=== PATIENT | male | born 1965 | race Two or more races ===

== ENCOUNTER 2019-12-25 07:21 | Outpatient (REF) | payer OTHER, SELFPAY ==
[2019-12-25 08:33] LABS: Alanine Aminotransferase 91 U/L (0-40); Albumin Level 3.9 g/dL (3.5-5.0); Alkaline Phosphatase 82 U/L (39-117); Anion Gap 10 (12-20); Aspartate Amino Transferase 39 U/L (5-37); Bilirubin Total 1.1 mg/dL (0.0-1.0); Blood Urea Nitrogen 10 mg/dL (9-16); Calcium 8.6 mg/dL (8.4-10.2); Carbon Dioxide 27 mmol/L (22-29); Chloride 108 mmol/L (96-108); Cholesterol 200 mg/dL; Estimated Glomerular Filt Rate > 60; Glucose Fasting 116 mg/dL (60-99); HDL Cholesterol 45 mg/dL; LDL Cholesterol Calculated 127 mg/dl; Potassium 4.7 mmol/l (3.3-5.1); Sodium 140 mmol/L (135-145); Total Protein 6.5 g/dL (6.5-8.0); Triglycerides 143 mg/dL
== END 2019-12-25 07:22 | disposition home or self-care (01) ==
LOC: HO.LAB 07:21
PROVIDERS: PCP Internal Medicine; Visit Provider Internal Medicine
DX: E66.9 Obesity, unspecified (principal)
CPT/HCPCS: 80053; 80061

== ENCOUNTER 2020-04-21 15:46 | Outpatient (REF) | payer OTHER, SELFPAY ==
--- NOTE | ~2020-04-21 | XR_ITS ---
EXAMINATION: XR KNEE, RIGHT CLINICAL INFORMATION: Pain COMPARISON: None TECHNIQUE: Four views of the right knee. FINDINGS: Bone alignment is normal. No fracture or dislocation is seen. There is mild medial femoral tibial joint space narrowing. There are small osteophytes at the patellofemoral joint. There is no joint effusion. XR/XR knee RT 4V IMPRESSION: Mild degenerative changes.
== END 2020-04-21 15:47 | disposition home or self-care (01) ==
LOC: HO.XRAY 15:46
PROVIDERS: PCP Internal Medicine; Visit Provider Internal Medicine
DX: M25.561 Pain in right knee (principal)
CPT/HCPCS: 73564

== ENCOUNTER 2020-05-16 11:00 | Outpatient (RCR) | payer OTHER, SELFPAY | END 2020-05-16 12:27 | disposition other institution (70) | LOC: HO.PTCHIC 11:00 | PROVIDERS: PCP Internal Medicine; Visit Provider Neurological Surgery | DX: Z98.1 Arthrodesis status (principal); R53.1 Weakness; R20.0 Anesthesia of skin | CPT/HCPCS: 97014; 97110; 97112; 97140; 97162 ==

== ENCOUNTER 2020-08-08 08:37 | Outpatient (REF) | payer OTHER, SELFPAY ==
--- NOTE | ~2020-08-08 | US_ITS ---
EXAMINATION: US COMPLETE ABDOMEN WITH LIVER ELASTOGRAPHY CLINICAL INFORMATION: Elevation of liver transaminase levels. COMPARISON: None TECHNIQUE: Real-time imaging of the abdominal viscera. Noninvasive ultrasound liver fibrosis assessment is performed using [place]eno ElastPQ point quantification shear wave elastography (pSWE) with a C5-2 MHz transducer. Multiple elastography samples are obtained. FINDINGS: PANCREAS: Most of the pancreas is obscured by overlying gas. The visualized head and proximal body of the pancreas are homogeneous in echotexture. ABDOMINAL AORTA: The proximal, middle, and distal aortic segments are normal in caliber. INFERIOR VENA CAVA: Visualized portions are normal. LIVER: The liver demonstrates normal size, contour and slight increased echogenicity. There is mild focal fatty sparing. There is a prominent left portal vein with slightly abnormal flow. The right lobe measures 13.5 cm in length. The left lobe measures 11.7 cm in length. Portal flow is hepatopedal. Shear wave liver elastography median stiffness is 2.0 m/s (reference: normal median stiffness is 1.3 m/s or less). IQR/median stiffness to assess sampling precision is 0.25 (reference: good quality data set is IQR/median stiffness of 0.15 or less). GALLBLADDER: Normal. The gallbladder is physiologically distended without evidence of stones, sludge, polyps, wall thickening, or pericholecystic fluid. COMMON BILE DUCT: Normal in caliber measuring 0.3 cm in diameter. RIGHT KIDNEY: Normal. No hydronephrosis. No renal calculi or focal parenchymal lesions. The kidney measures 10.6 cm in maximum dimension. LEFT KIDNEY: Normal. No hydronephrosis. No renal calculi or focal parenchymal lesions. The kidney measures 13.0 cm in maximum dimension. SPLEEN: Normal. The spleen measures 11.9 cm in maximum dimension. FREE FLUID: None. US/US abdomen comp w elastography IMPRESSION: 1. Mildly echogenic liver with likely hepatic steatosis. Focal dilated portal vein and left hepatic lobe with slightly irregular flow. 2. Liver elastography: 2.0 cACLD suggestive. REFERENCE: Society of Radiologists in Ultrasound Liver Stiffness Thresholds (2019): LIVER STIFFNESS THRESHOLDS: *Liver Stiffness equal or less than 1.3 m/s: High probability of being normal. *Liver Stiffness less than 1.7 m/s: In the absence of other known clinical signs, rules out compensated advanced chronic liver disease. *Liver Stiffness 1.7-2.1 m/s: Suggestive of compensated advanced chronic liver disease but need further test for confirmation. *Liver Stiffness over 2.1 m/s: Rules in compensated advanced chronic liver disease. *Liver Stiffness over 2.4 m/s: Suggestive of clinically significant portal hypertension. QUALITY OF DATA SET: *IQR/Median value equal or less than 0.15 implies a quality data set. *IQR/Median value over 0.15 implies a poor quality data set. SIGNIFICANT CHANGE FROM PRIOR EXAM: Significant change if liver stiffness measurement is 10% or greater from prior exam. OTHER CONSIDERATIONS: The stage of liver fibrosis may be overestimated in the setting of acute hepatitis, liver inflammation, elevated liver function tests, hepatic vascular congestion, obstructive cholestasis, non-fasting state, and infiltrative diseases such as amyloidosis and lymphoma. In some patients with NAFLD, the liver stiffness thresholds for compensated advanced chronic liver disease may be lower. In causes other than viral hepatitis and NAFLD, liver stiffness thresholds are not well established.
== END 2020-08-08 08:38 | disposition home or self-care (01) ==
LOC: HO.US 08:37
PROVIDERS: Visit Provider Internal Medicine
DX: R74.01 Elevation of levels of liver transaminase levels (principal)
CPT/HCPCS: 76705; 76981

== ENCOUNTER 2020-11-06 14:31 | Outpatient (REF) | payer OTHER, SELFPAY ==
--- NOTE | ~2020-11-06 | FL_ITS ---
EXAMINATION: XR BARIUM SWALLOW CLINICAL INFORMATION: Cough COMPARISON: None TECHNIQUE: Fluoroscopic guidance was provided for modified barium swallow by the speech and hearing department. FINDINGS: No aspiration or penetration is seen. There is retention of solid food mixed with barium in the vallecula. FLUOROSCOPY TIME: 0.9 minutes DOSE AREA PRODUCT: 1.4 more per centimeter squared. FL/FL barium swallow modified IMPRESSION: Retention of solid food mixed with barium in the vallecula. The speech and hearing report for detailed findings.
--- NOTE | 2020-11-06 16:17 | MHC.SL.IMP ---
Date of Plan of Treatment: 11/06/20 Onset of Symptoms/Illness: 10/06/20 Date Treatment Started: 11/06/20 Admitting Diagnosis: Dyslipidemia Impaired glucose tolerance Lumbar degenerative disc disease Right knee pain Transaminitis Primary Speech & Language Diagnosis: R13.12 Oropharyngeal Phase Dysphagia Reason for Today's Visit: 90325 Modified Barium Swallow Study Pre-evaluation Dietary Consistencies: Regular Pre-evaluation Liquid Consistency: Thin Pre-evaluation Medication Administration: Whole with Liquid Medical History: Comments: Modified Barium Swallow Study Fluoroscopic Evaluation of Swallowing Function CPT Code 60301 Evaluation Year: 2020 Reason for Study: Patient reports coughing on liquids. Referring Physician: Joshua Foote DO Evaluating Clinician: Bceky Correa M.A., CCC-MANAGER FINANCIAL PLANNING Study Number: 1 Patient Name: Tom Taylor Status: Outpatient, Ambulatory Age: 54 Gender: Male MEDICAL HISTORY: Year of Onset or Diagnosis: 2020 Comorbidities: Dyslipidemia Impaired glucose tolerance Lumbar degenerative disc disease Right knee pain Transaminitis Current (pre-evaluation) Intake/Diet: Route: PO Diet Grade: Regular Liquid Consistencies: Thin Pre-Study Functional Oral Intake Scale (FOIS): 7- Total oral intake with no restrictions Pain: None reported at time of study Oral Motor Exam Facial Symmetry: Symmetrical Mouth Occlusion: Normal Oral-Facial Teeth Characteristics: Intact/Normal Oral-Facial Teeth Miscellaneous Observation: Oral-Facial Lip Pucker Description: Normal Oral-Facial Smile (Lips) Description: Normal Oral-Facial Puff Cheeks Description: Normal Tongue Size: Normal Tongue Frenum Length: Normal Tongue Excursion Description: Normal Tongue Range of Movement Description: Normal Tongue Speed of Movement Description: Normal Tongue Strength of Movement (against opposing pressure): Normal Tongue Movement Characteristics: Normal/Absent Is patient able to manage secretions?: Yes I Food and Liquid Trials: Oral Impairment: Lip Closure: 0=No labial escape Oral Impairment: Tongue Control During Bolus Hold: 0=Cohesive bolus between tongue to palatal seal Oral Impairment: Bolus Preparation/Mastication: 0=Timely and efficient chewing and mashing Oral Impairment: Bolus Transport/Lingual Motion: 0=Brisk tongue motion Oral Impairment: Oral Residue: 1=Trace residue lining oral structures Oral Impairment:Initiation of Pharyngeal Swallow: 1=Bolus head in valleculae Pharyngeal Impairment: Soft Palate Elevation: 0=No bolus between soft palate (SP)/pharyngeal wall (PW) Pharyngeal Impairment: Laryngeal Elevation: 0=Complete superior movement of thyroid cartilage (see description) Pharyngeal Impairment: Anterior Hyoid Excursion: 0=Complete anterior movement Pharyngeal Impairment: Epiglottic Movement: 0=Complete inversion Pharyngeal Impairment: Laryngeal Vestibular Closure:: 0=Complete: no air/contrast in laryngeal vestibule Pharyngeal Impairment: Pharyngeal Stripping Wave: 0=Present: complete Pharyngeal Impairment: Pharyngeal Contraction: Did not test Pharyngeal Impairment: Pharyngoesophageal Segment Openin=Complete distension and complete duration: no obstruction of flow Pharyngeal Impairment: Tongue Base (TB) Retraction: 2=Narrow column of contrast/air between TB and posterior PW Pharyngeal Impairment: Pharyngeal Residue: 2=Collection of residue within or on pharyngeal structures Pharyngeal Impairment: Esophageal Clearance Upright Position: Did not test Impressions and Recommendations Clinical Observations: OBJECTIVE: Time-out: performed at 02:45 Evaluation Start: 02:30; Stop: 02:40 Patient Positioning: Standing Viewing Planes: LATERAL ONLY Contrast: MBSImP? Standardized Protocol using commercially prepared, standardized Barium viscosities, including: Varibar? THIN LIQUID (40% w/v, <15 cps) , 1/2 Shortbread Cookie (1 x1 x.25 ) MBSImP ID: [id number] MBSImP Results: Lip closure for intraoral bolus containment resulted in no labial escape. Tongue control during bolus hold maintained a cohesive bolus held between tongue to palate seal. Bolus preparation and mastication resulted in timely and efficient chewing and mashing. Bolus transport/lingual motion was with brisk tongue motion. Oral residue was a trace, lining oral structures. Initiation of the pharyngeal swallow occurred when the bolus head was in the valleculae. Soft palate elevation resulted in no bolus between the soft palate and the pharyngeal wall. Laryngeal elevation demonstrated complete superior movement of the thyroid cartilage with complete approximation of the arytenoids to the epiglottic petiole. Anterior hyoid excursion demonstrated complete anterior movement. Epiglottic movement resulted in complete inversion. Laryngeal vestibular closure was complete, as indicated by no air or contrast within the laryngeal vestibule at the height of the swallow. Pharyngeal stripping wave was present and complete. Pharyngeal contraction could not be determined due to logistical reasons not related to physiologic impairment. Pharyngoesophageal segment opening was completely distended for complete duration with no obstruction of bolus flow. Tongue base retraction allowed a narrow column of contrast or air between the retracted tongue base and the posterior pharyngeal wall. Pharyngeal residue was a collection of residue within or on pharyngeal structures. Esophageal clearance in the upright position could not be assessed due to logistical reasons not related to physiologic impairment. Oral Impairment Score: 1 Pharyngeal Impairment Score: 4 (absence of score, component 13) Esophageal Impairment Score: --- (absence of score, component 17) Laryngeal Penetration and Aspiration: Neither penetration nor aspiration was observed in today's study with Cookie, Thin. ASSESSMENT: Clinician Assessment: This exam was conducted by a radiologist and speech language pathologist. Patient was standing for lateral view only. Patient trialed the following liquid and solid consistencies: -5 mL thin liquid barium -cup sip with bolus hold thin liquid barium -consecutive cup sip thin liquid barium -pureed solid (applesauce mixed with barium paste) -ground solid (chicken salad mixed with barium paste) -regular solid (Steffany Doone cookie coated in barium paste) No evidence of penetration or aspiration during this exam when patient trialed solids and liquids. Trace lingual residue and mild retention in vallecular space and pyriforms with solids. Reduced residue with sip of liquid or subsequent dry swallow. Otherwise unremarkable exam. Liquid Intake Recommendation: Thin Liquid Intake Strategies: Unrestricted Dietary Recommendations: Regular Medication Administration: Whole with Liquid Compensatory Strategies Recommended: Sitting Upright (90 deg) Double Swallow Small Bites and Sips Alternate Liquids/Solids Rate of Ingestion Change Supervision during eating and or drinking: None Needed Recommended Treatments: Recommendation for Speech Therapy: NA:Typical Evaluation Text Comment: Intake Recommendations: Route: PO Diet Grade: Regular Liquid Consistencies: Thin Post-Study Functional Oral Intake Scale (FOIS): 7- Total oral intake with no restrictions Recommend resume unmodified diet REGULAR solids and THIN liquids with pills WHOLE in LIQUID. Patient is recommended consult with ENT doctor due to reports of chronic cough. Suggested Referrals: The patient might benefit from a referral to: Otolaryngology Indication for Referral: coughing Therapy Recommendations: Therapy will be discontinued Prognosis for Improvement: The prognosis for the patient to meet nutritional needs by mouth is good based on . Clinician - Supplemental, Miscellaneous Communication: It is important to note MBSS objective studies are snapshots in time and Patient function might vary with factors such as time of day or concomitant medical conditions. For this reason, the final treatment plan for this patient should rest with their medical care team. Additional recommendations should be considered with the totality of the Patient in mind. ? Thank for the opportunity to participate in the care of this patient. If you have any questions about the content of this report, please contact the [facility] at [facility]. ? Education: Education regarding findings from today's study and plans for therapy were provided to Patient only through Verbal Instruction. Understanding was expressed by the Patient only. Frequency/Duration: NA Date Range for Service Requested: Timeline to reassess: [employer] Plant Operations Engineer Clinician/Clinical Fellow: No Supervisory Statement: N/A Speech Language Pathologist: Becky Correa M.A., CCC-MANAGER FINANCIAL PLANNING
== END 2020-11-06 14:32 | disposition home or self-care (01) ==
LOC: HO.XRAY 14:31
PROVIDERS: Visit Provider Hospitalist
DX: R05 Cough (principal)
CPT/HCPCS: 74230; 92611

== ENCOUNTER → 2020-11-27 10:54 | Outpatient (BNVA) | payer OTHER, SELFPAY | PROVIDERS: PCP Internal Medicine; Visit Provider Anesthesiology | DX: M96.1 Postlaminectomy syndrome, not elsewhere classified (principal); G89.4 Chronic pain syndrome | CPT/HCPCS: 99212 ==

== ENCOUNTER 2020-12-11 06:38 | Outpatient (REF) | payer OTHER, SELFPAY ==
[2020-12-11 07:24] LABS: Alanine Aminotransferase 52 U/L (0-40); Alkaline Phosphatase 103 U/L (39-117); Anion Gap 10 (12-20); Aspartate Amino Transferase 34 U/L (5-37); Bilirubin Total 1.1 mg/dL (0.0-1.0); Blood Urea Nitrogen 9 mg/dL (9-16); Calcium 9.4 mg/dL (8.4-10.2); Carbon Dioxide 29 mmol/L (22-29); Chloride 107 mmol/L (96-108); Cholesterol 222 mg/dL; Estimated Glomerular Filt Rate > 60; Glucose Fasting 118 mg/dL (60-99); HDL Cholesterol 38 mg/dL; LDL Cholesterol Calculated 157 mg/dl; Potassium 4.3 mmol/L (3.3-5.1); Sodium 142 mmol/L (135-145); Total Protein 6.7 g/dL (6.5-8.0); Triglycerides 135 mg/dL
[2020-12-11 07:39] LABS: HBS Num1 0.78 mIU/mL (0-7.99); HBc Num1 0.07 S/CO (0.00-0.79); Hepatitis B Core Antibody Nonreactive (Nonreactive); ~Hepatitis B Surface Antibody NONREACTIVE (Nonreactive)
[2020-12-11 07:44] LABS: Hepatitis B Surface Antigen Negative (Negative); ~Hepatitis C Antibody Nonreactive (Nonreactive)
[2020-12-12 12:21] LABS: Alpha Fetoprotein 4.4 ng/mL (<6.1)
[2020-12-13 07:50] LABS: HBsAGNum1 0.15 S/CO (0.00-0.99); ~HepC Num1 0.09 S/CO (0.00-0.79)
[2020-12-13 09:20] LABS: Hepatitis A Antibody IgM 0.12 Index (0-0.79); ~Hepatitis A Antibody IgM Nonreactive (Nonreactive)
[2020-12-15 14:25] LABS: Vitamin D 25-OH, D2 <4 ng/mL; Vitamin D 25-OH, D3 26 ng/mL; Vitamin D 25-OH, Total 26 ng/mL (30-100)
[2020-12-18 08:27] LABS: Mitochondrial Antibodies NEGATIVE (NEGATIVE)
== END 2020-12-11 06:39 | disposition home or self-care (01) ==
LOC: HO.LAB 06:38
PROVIDERS: PCP Internal Medicine; Visit Provider Internal Medicine
DX: R74.01 Elevation of levels of liver transaminase levels (principal); E55.9 Vitamin D deficiency, unspecified; E78.5 Hyperlipidemia, unspecified; R73.02 Impaired glucose tolerance (oral)
CPT/HCPCS: 36415; 80053; 80061; 82105; 82306; 86255; 86256; 86704; 86706; 86709; 86803; 87340

== ENCOUNTER → 2020-12-27 15:51 | Outpatient (BNVA) | payer OTHER, SELFPAY | PROVIDERS: PCP Internal Medicine; Visit Provider Anesthesiology | DX: M96.1 Postlaminectomy syndrome, not elsewhere classified (principal); G89.4 Chronic pain syndrome | CPT/HCPCS: 99212 ==

== ENCOUNTER 2021-01-16 06:13 | Outpatient (REF) | payer OTHER, SELFPAY ==
--- NOTE | ~2021-01-16 | FL_ITS ---
EXAMINATION: XR FLUOROSCOPY WITH IMAGES CLINICAL INFORMATION: M96.1 - Postlaminectomy syndrome, not elsewhere classified COMPARISON: None. TECHNIQUE: Fluoroscopy performed by Dr. Bryant Amezquita. Fluoroscopy time: 1.0 minutes DAP: 14.9 Gycm2 Images: 3 FINDINGS: There is a spinal needle overlying the outer right L5 neural foramen. There is contrast seen in the respective nerve sheath along with transforaminal epidural extension. No visible vascular communication. There are postsurgical changes with pedicle screws and rodding L4-L5. There are disc spaces L4-L5 and L5-S1 and surgical clips overlying the sacrum. FL/FL guidance in treatment room IMPRESSION: Fluoroscopy for pain management procedures.
== END 2021-01-16 06:14 | disposition home or self-care (01) ==
LOC: HO.RADIR 06:13
PROVIDERS: Visit Provider Anesthesiology
DX: M96.1 Postlaminectomy syndrome, not elsewhere classified (principal)
CPT/HCPCS: J3300; Q9967

== ENCOUNTER → 2021-02-19 10:14 | Outpatient (BNVA) | payer OTHER, SELFPAY | PROVIDERS: PCP Internal Medicine; Visit Provider Anesthesiology | DX: M96.1 Postlaminectomy syndrome, not elsewhere classified (principal); G89.4 Chronic pain syndrome | CPT/HCPCS: Q3014 ==

== ENCOUNTER → 2021-04-04 09:54 | Outpatient (BNVA) | payer OTHER, SELFPAY | PROVIDERS: PCP Internal Medicine; Visit Provider Anesthesiology | DX: M96.1 Postlaminectomy syndrome, not elsewhere classified (principal); G89.4 Chronic pain syndrome | CPT/HCPCS: 99212 ==

== ENCOUNTER 2021-08-07 13:58 | Outpatient (REF) | payer OTHER, SELFPAY ==
[2021-08-08 12:09] LABS: Influenza A PCR NEGATIVE (Negative); Influenza B PCR NEGATIVE (Negative); Resp Syncy Virus RNA Qual PCR NEGATIVE (Negative); SARS COV2 PCR INHOUSE POSITIVE (Negative)
== END 2021-08-07 13:59 | disposition home or self-care (01) ==
LOC: HO.LAB 13:58
PROVIDERS: Visit Provider Hospitalist
DX: Z20.822 Contact with and (suspected) exposure to COVID-19 (principal); B34.9 Viral infection, unspecified
CPT/HCPCS: 0241U

== ENCOUNTER 2021-10-13 07:24 | Outpatient (REF) | payer OTHER, SELFPAY ==
[2021-10-13 08:25] LABS: Alanine Aminotransferase 65 U/L (0-40); Albumin Level 3.9 g/dL (3.5-5.0); Alkaline Phosphatase 79 U/L (39-117); Anion Gap 12 (12-20); Aspartate Amino Transferase 55 U/L (5-37); Bilirubin Total 0.9 mg/dL (0.0-1.0); Blood Urea Nitrogen 10 mg/dL (9-16); Calcium 8.7 mg/dL (8.4-10.2); Carbon Dioxide 28 mmol/L (22-29); Chloride 108 mmol/L (96-108); Cholesterol 159 mg/dL; Estimated Glomerular Filt Rate > 60; Glucose Fasting 123 mg/dL (60-99); HDL Cholesterol 45 mg/dL; LDL Cholesterol Calculated 85 mg/dl; Potassium 4.3 mmol/L (3.3-5.1); Sodium 144 mmol/L (135-145); Total Protein 6.6 g/dL (6.5-8.0); Triglycerides 148 mg/dL
[2021-10-13 08:52] LABS: PSA,Total (Free>4and<10) 0.13 ng/mL (0.00-4.00)
[2021-10-17 15:02] LABS: Vitamin D 25-OH, D2 <4 ng/mL; Vitamin D 25-OH, D3 26 ng/mL; Vitamin D 25-OH, Total 26 ng/mL (30-100)
== END 2021-10-13 07:25 | disposition home or self-care (01) ==
LOC: HO.LAB 07:24
PROVIDERS: PCP Internal Medicine; Visit Provider Internal Medicine
DX: Z12.5 Encounter for screening for malignant neoplasm of prostate (principal); I10 Essential (primary) hypertension; E55.9 Vitamin D deficiency, unspecified; E78.5 Hyperlipidemia, unspecified
CPT/HCPCS: 36415; 80053; 80061; 82306; 84153

== ENCOUNTER 2022-04-04 09:09 | Outpatient (REF) | payer OTHER, SELFPAY ==
[2022-04-04 09:18] LABS: MANUAL DIFF FLAG NO
[2022-04-04 09:29] LABS: Basophils Absolute Auto 0.1 X10*3/uL (0.0-0.2); Basophils Percent Auto 0.6 % (0-2); Eosinophils Absolute Auto 0.1 X10*3/uL (0.0-0.4); Eosinophils Percent Auto 1.4 % (0-4); Hematocrit 47.7 % (42.0-52.0); Hemoglobin 16.4 g/dl (14.0-18.0); Imm Gran Abs Auto 0.04 X10*3/uL (0.00-0.03); Imm Gran Pct Auto 0.5 % (0.0-0.4); Lymphocytes Absolute Auto 3.6 X10*3/uL (1.2-4.9); Lymphocytes Percent Auto 40.6 % (20-40); Mean Corpuscular HGB Conc 34.4 g/dl (31.0-36.0); Mean Corpuscular Hemoglobin 29.9 pg (27.0-33.0); Mean Platelet Volume 11.9 fL (9.4-12.4); Monocytes Absolute Auto 0.7 X10*3/uL (0.1-1.2); Monocytes Percent Auto 8.1 % (2-11); Neutrophils Absolute Auto 4.3 x10*3/uL (2.0-8.3); Neutrophils Percent Auto 48.8 % (45-73); Platelet Count 172 X10*3/uL (160-400); Red Blood Count 5.48 X10*6/uL (4.60-5.80); White Blood Count 8.8 X10*3/uL (4.8-10.8)
[2022-04-04 09:42] LABS: Estimated Average Glucose 154 mg/dL
[2022-04-04 10:23] LABS: Alanine Aminotransferase 95 U/L (0-40); Albumin Level 3.9 g/dL (3.5-5.0); Alkaline Phosphatase 83 U/L (39-117); Anion Gap 10 (12-20); Aspartate Amino Transferase 61 U/L (5-37); Bilirubin Total 1.2 mg/dL (0.0-1.0); Blood Urea Nitrogen 10 mg/dL (9-16); Carbon Dioxide 29 mmol/L (22-29); Chloride 107 mmol/L (96-108); Cholesterol 166 mg/dL; Estimated Glomerular Filt Rate > 60; Glucose Fasting 138 mg/dL (60-99); HDL Cholesterol 38 mg/dL; LDL Cholesterol Calculated 103 mg/dl; Potassium 4.2 mmol/L (3.3-5.1); Sodium 142 mmol/L (135-145); Total Protein 6.5 g/dL (6.5-8.0); Triglycerides 125 mg/dL
[2022-04-04 10:25] LABS: TSH reflex Free T4 3.28 uIU/mL (0.32-4.0); Vitamin D 25-OH Total 29.3 ng/mL (>30)
== END 2022-04-04 09:10 | disposition home or self-care (01) ==
LOC: HO.LAB 09:09
PROVIDERS: PCP Internal Medicine; Visit Provider Nurse Practitioner Family
DX: I10 Essential (primary) hypertension (principal); R73.02 Impaired glucose tolerance (oral)
CPT/HCPCS: 36415; 80053; 80061; 82306; 83036; 84443; 85025

== ENCOUNTER 2022-04-12 13:55 | Outpatient (REF) | payer OTHER, SELFPAY ==
[2022-04-12 14:53] LABS: Influenza A PCR NEGATIVE (Negative); Influenza B PCR NEGATIVE (Negative); Resp Syncy Virus RNA Qual PCR NEGATIVE (Negative); SARS COV2 PCR INHOUSE POSITIVE (Negative)
== END 2022-04-12 13:56 | disposition home or self-care (01) ==
LOC: HO.LNP 13:55
PROVIDERS: Visit Provider Internal Medicine
DX: Z20.822 Contact with and (suspected) exposure to COVID-19 (principal); R09.89 Other specified symptoms and signs involving the circulatory and respiratory systems
CPT/HCPCS: 0241U

== ENCOUNTER 2022-05-18 08:40 | Outpatient (REF) | payer OTHER, SELFPAY ==
[2022-05-18 11:09] LABS: Folate 12.8 ng/mL (> or = 4.0); Thyroid Stimulating Hormone 3.91 uIU/mL (0.32-4.0); Vitamin B12 438 pg/mL (200-900)
== END 2022-05-18 08:41 | disposition home or self-care (01) ==
LOC: HO.LAB 08:40
PROVIDERS: PCP Internal Medicine; Visit Provider Internal Medicine
DX: R41.3 Other amnesia (principal); E53.8 Deficiency of other specified B group vitamins
CPT/HCPCS: 36415; 82607; 82746; 84443

== ENCOUNTER → 2022-08-02 14:55 | Outpatient (BNVA) | payer OTHER, SELFPAY | PROVIDERS: PCP Internal Medicine; Visit Provider Nurse Practitioner Family | DX: N52.9 Male erectile dysfunction, unspecified (principal) | CPT/HCPCS: 99202 ==

== ENCOUNTER → 2022-09-04 10:58 | Outpatient (BNVA) | payer OTHER, SELFPAY | PROVIDERS: PCP Internal Medicine; Visit Provider Registered Nurse Diabetes Educator | DX: E11.9 Type 2 diabetes mellitus without complications (principal) | CPT/HCPCS: 99211 ==

== ENCOUNTER 2022-10-15 16:45 | Outpatient (AMB) | payer OTHER, SELFPAY ==
[2022-10-15 16:48] VITALS: BP 128/86; PULSE 99; O2SAT 95; BMI 33.5
--- NOTE | 2022-10-15 16:48 | MHC.OFFVIS ---
Intake Vital Signs 10/15/22 16:48 Height 5 ft 9 in Weight 227 lb BMI 33.5 BP 128/86 Blood Pressure Location Lt brachial Position Sitting Pulse 99 Pulse Source Pulse Oximeter Pulse Oximetry (%) 95 Oxygen Delivery Method Room Air Intake Visit Reasons: Hypertension Intake Note: Pt is here for HTN F/U. Bias Cutter Required: No Accompanied by: Self / Same As Patient Allergies acetaminophen [Percocet] Allergy (Mild, Verified 10/15/22 17:05) rash oxycodone [From Percocet] Allergy (Mild, Verified 10/15/22 17:05) rash Medication List - Last Reconciled 10/15/22 by Magali Taveras MD albuterol sulfate 90 mcg/actuation 2 puffs PO Q4-6H PRN atorvastatin 10 mg PO BEDTIME 90 days blood pressure monitor (Blood Pressure Kit) As directed blood sugar diagnostic (KissMyAdsuch Ultra Test strips) Use 1 test strpi once a day blood-glucose meter (KissMyAdsuch UltraMini kit) As directed cholecalciferol (vitamin D3) 25 mcg PO DAILY 90 days cyclobenzaprine 10 mg PO TID PRN 90 days hydrochlorothiazide 25 mg PO DAILY 90 days hydroxyzine pamoate 25 mg PO BID PRN lancets (OneTouch Delica Plus Lancet) Use 1 lancet once a day lancets (OneTouch UltraSoft Lancets) USe 1 lancet once a day lisinopril 10 mg PO DAILY 90 days metformin 500 mg PO DAILY 30 days pregabalin 200 mg PO BID 30 days tadalafil (Cialis) 10 mg PO .PRN PRN tadalafil (Cialis) 5 mg PO DAILY 90 days terbinafine HCl 250 mg PO DAILY 90 days HPI HPI Comments History of Present Illness Details This is a 56-year-old male with hypertension, diabetes mellitus type 2, hyperlipidemia and postlaminectomy syndrome that comes today for follow-up on his conditions. Blood pressure stable. A1c within goal. Lipid panel will be repeated and his LDL goal should be less than 70. He has low back pain that is relieved by Lyrica as needed. Denies any chest pain or shortness of breath. [facility] Medical History Abnormal barium swallow Dyslipidemia Essential hypertension Lumbar degenerative disc disease Obese Postlaminectomy syndrome Right knee pain Transaminitis Surgical History Fusion of lumbar spine History of arthroscopy of left knee History of colonoscopy History of fracture of left ankle History of lumbar fusion Hx of arthroscopy of right knee Family History Father Diabetes Mother Diabetes Hypertension Asthma Social History Housing: House Alcohol intake: former Patient Tobacco Use Status: Never used Tobacco e-Cigarette/Vaping Use: Never Used Second Hand Smoke Exposure: No service: No Current occupational status: employed Current occupational exposures/hazards: No Cognitive needs: No Hearing needs: No Vision needs: No Questionnaire Thrive Questionnaire Date Thrive assessed: 04/03/22 Review of Systems Const All systems reviewed & are unremarkable except as noted in HPI and below Eyes Reports no additional complaints, Denies change in vision and Denies other visual disturbances Card Denies chest pain at rest, Denies chest pain with activity, Denies edema, Denies irregular heart rhythm, Denies claudication, Denies dyspnea, Denies dyspnea on exertion, Denies orthopnea, Denies paroxysmal nocturnal dyspnea and Denies slow heart rate Resp Denies cough, Denies dyspnea and Denies dyspnea on exertion GI Denies abdominal pain, Denies change in bowel habits, Denies excessive flatus, Denies nausea and Denies vomiting Denies urinary hesitancy, Denies urinary incontinence and Denies urinary urgency Musc Denies abnormal gait, Denies atrophy, Denies deformity and Denies limited range of motion Skin/Breast Denies bleeding lesions, Denies changing lesions and Denies rash Neuro Denies abnormal gait and Denies lack of coordination Physical Exam Vital Signs: Last Vital Signs Pulse 99 10/15/22 16:48 BP 128/86 10/15/22 16:48 Pulse Ox 95 10/15/22 16:48 Oxygen Delivery Method Room Air 10/15/22 16:48 BMI result Body Mass Index 33.5 Eyes General: appearance normal, both eyes and all related structures Eyelids: Yes eyelids normal Conjunctivae: conjunctivae normal Neck Neck: Yes normal visual inspection and Yes supple Resp Effort & Inspection: normal respiratory effort Auscultation: clear to auscultation bilaterally Cardio Jugular venous distension: no JVD Rate: regular rate Rhythm: regular rhythm Heart sounds: S1 normal heart sound present and S2 normal heart sound present Extrem General: Yes full ROM Assessment & Plan Assessment & Plan (1) Diabetes mellitus: Code(s): E11.9 - Type 2 diabetes mellitus without complications Plan: Continue metformin. A1c goal is equal or less than 7% (2) Hyperlipidemia LDL goal <70: Code(s): E78.5 - Hyperlipidemia, unspecified Plan: Continue statins. LDL goal is less than 70. (3) Essential hypertension: Code(s): I10 - Essential (primary) hypertension Plan: Continue lisinopril. Blood pressure goal is equal or less than 130/80 (4) Postlaminectomy syndrome: Code(s): M96.1 - Postlaminectomy syndrome, not elsewhere classified Plan: Continue Lyrica as needed Orders: Orders Lipid Panel 6 Months E78.5 - Hyperlipidemia, unspecified Microalbumin, Random (w Creat) 6 Months E11.9 - Type 2 diabetes mellitus without complications Vitamin D 25-OH Total 6 Months E55.9 - Vitamin D deficiency, unspecified Comprehensive Met. Panel 6 Months E11.9 - Type 2 diabetes mellitus without complications Medications: Refilled atorvastatin 10 mg PO BEDTIME 90 tabs 1RF 90 days cholecalciferol (vitamin D3) 25 mcg PO DAILY 90 caps 1RF 90 days lisinopril 10 mg PO DAILY 90 tabs 1RF 90 days I10 - Essential (primary) hypertension metformin 500 mg PO DAILY 30 tabs 1RF 30 days Quality Reporting (2019) Adult ([facility] 138/2//69) Smoking risk assessment performed?: Yes Patient Tobacco Use Status: Never used Tobacco Coding Level of Care Code Est Pt Level 4 (20614) Diagnoses Diabetes mellitus E11.9 Hyperlipidemia LDL goal <70 E78.5 Essential hypertension I10 Postlaminectomy syndrome M96.1 Time Spent (min) 21
== END 2022-10-15 17:17 | disposition home or self-care (01) ==
PROVIDERS: Visit Provider Internal Medicine
DX: E11.9 Type 2 diabetes mellitus without complications (principal); E78.5 Hyperlipidemia, unspecified; I10 Essential (primary) hypertension; M96.1 Postlaminectomy syndrome, not elsewhere classified
CPT/HCPCS: 99214

== ENCOUNTER 2022-12-07 07:34 | Outpatient (REF) | payer OTHER, SELFPAY ==
[2022-12-07 08:23] LABS: Estimated Average Glucose 117 mg/dL; Hemoglobin A1c % 5.7 % (<6.0)
[2022-12-07 09:09] LABS: Alanine Aminotransferase 41 U/L (0-40); Albumin Level 3.7 g/dL (3.5-5.0); Alkaline Phosphatase 61 U/L (39-117); Anion Gap 16 (12-20); Aspartate Amino Transferase 27 U/L (5-37); Blood Urea Nitrogen 11 mg/dL (9-16); Calcium 8.8 mg/dL (8.4-10.2); Carbon Dioxide 21 mmol/L (22-29); Chloride 108 mmol/L (96-108); Cholesterol 191 mg/dL (<200); Estimated Glomerular Filt Rate > 60; Glucose Fasting 108 mg/dL (60-99); HDL Cholesterol 41 mg/dL (>40); LDL Cholesterol Calculated 126 mg/dL (<100); Potassium 3.8 mmol/L (3.3-5.1); Sodium 141 mmol/L (135-145); Total Protein 6.3 g/dL (6.5-8.0); Triglycerides 121 mg/dL (<150)
[2022-12-07 09:20] LABS: Vitamin D 25-OH Total 37.7 ng/mL (>30)
[2022-12-07 09:27] LABS: Vitamin D 25-OH Total 36.2 ng/mL (>30)
[2022-12-07 09:33] LABS: Creatinine Urine 274.89 mg/dL; Microalbum/Creatinine Ratio Ur 3.2 ug/mg cr (<30)
[2022-12-12 11:03] LABS: Testosterone, Free 102.9 pg/mL (35.0-155.0); Testosterone, Total 980 ng/dL (250-1100)
== END 2022-12-07 07:35 | disposition home or self-care (01) ==
LOC: HO.LAB 07:34
PROVIDERS: Nurse Practitioner Family; PCP Internal Medicine; Visit Provider Internal Medicine
DX: N52.9 Male erectile dysfunction, unspecified (principal); E78.5 Hyperlipidemia, unspecified; E11.9 Type 2 diabetes mellitus without complications; E55.9 Vitamin D deficiency, unspecified; R79.89 Other specified abnormal findings of blood chemistry
CPT/HCPCS: 36415; 80053; 80061; 82043; 82306; 82570; 83036; 84402; 84403

== ENCOUNTER 2023-03-17 14:48 | Outpatient (AMB) | payer OTHER, SELFPAY ==
--- NOTE | 2023-03-17 15:46 | A.OFFVIS_ITS ---
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 Accompanied by: Self / Same As Patient Allergies acetaminophen [Percocet] Allergy (Mild, Verified 10/15/22 17:05) rash oxycodone [From Percocet] Allergy (Mild, Verified 10/15/22 17:05) rash HPI Comprehensive Diabetes Asmnt Most Recent Diabetes Results: Microalb/Creat Ratio 3.2 ug/mg cr (<30) 12/07/22 Cholesterol 191 mg/dL (<200) 12/07/22 HDL Cholesterol 41 mg/dL (>40) 12/07/22 Triglycerides 121 mg/dL (<150) 12/07/22 Creatinine 0.81 mg/dL (0.5-1.4) 12/07/22 Blood Urea Nitrogen 11 mg/dL (9-16) 12/07/22 Sodium 141 mmol/L (135-145) 12/07/22 Potassium 3.8 mmol/L (3.3-5.1) 12/07/22 Chloride 108 mmol/L (96-108) 12/07/22 Carbon Dioxide 21 mmol/L (22-29) L 12/07/22 Calcium 8.8 mg/dL (8.4-10.2) 12/07/22 AST 27 U/L (5-37) 12/07/22 ALT 41 U/L (0-40) H 12/07/22 Total Protein 6.3 g/dL (6.5-8.0) L 12/07/22 Albumin 3.7 g/dL (3.5-5.0) 12/07/22 [facility] Medical History Abnormal barium swallow Dyslipidemia Essential hypertension Lumbar degenerative disc disease Obese Postlaminectomy syndrome Right knee pain Transaminitis Surgical History Fusion of lumbar spine History of arthroscopy of left knee History of colonoscopy History of fracture of left ankle History of lumbar fusion Hx of arthroscopy of right knee Family History Father Diabetes Mother Diabetes Hypertension Asthma Social History Housing: House Alcohol intake: former Patient Tobacco Use Status: Never used Tobacco e-Cigarette/Vaping Use: Never Used Second Hand Smoke Exposure: No service: No Current occupational status: employed Current occupational exposures/hazards: No Cognitive needs: No Hearing needs: No Vision needs: No Assessment & Plan Assessment & Plan (1) Diabetes mellitus: Code(s): E11.9 - Type 2 diabetes mellitus without complications Plan: Learning objectives: The patient was provided with verbal and written education on the following topics as outlined below. Patient questions/concerns, patient reports he is mother from hypoglycemic events. He has not been frequently testing his glucose but fasting glucose that he has on meter have all been within target. Patient is overdue for next A1c but has PCP appointment coming up on 04/17/2023, message sent to PCP to add A1c to patient's labs The patient met all learning objectives and was able to verbalize understanding and provide teach back of education topics discussed . The patient was provided with the opportunity to ask questions and all questions were answered. Topics covered in today?s session included: Medications (If applicable) * Name of medication? * Dosing/administration instructions? * Mechanism of action? * Potential side effects? * Potential adverse reaction and appropriate treatment? * Review onset, peak, duration Assess for concerns re: insurance coverage, cost, barriers to compliance Hypoglycemia and Hyperglycemia * Signs and symptoms? * Causes?? * Treatment? * Preventing hypoglycemia? * When to seek medical attention * Blood glucose targets and how you feel when your blood glucose is in and out of your target ranges. * Monitoring and knowing your A1C. * What can make blood glucose go up and down and preventing high and low blood glucose. * Review of blood sugar targets in expected goal range and outside of expected goal range. * Problem solving and preventing hyper/hypoglycemia. * Sick day management of diabetes. * Using blood sugar results in decision making process in managing diabetes. ?Patient was receptive to information provided and participated in the discussion. Asked?appropriate questions and demonstrated good understanding of the topics discussed.? ? Educational Materials: The patient was provided with the following written educational materials: Target Goal handout Smart Goal Assessment:? Patient will add 30 minutes physical activity 3 times a week Pt met goal more than 50% New Smart Goal: Patient will keep meals 45-60 g of carbohydrate per meals Patient Response to instructions: Comprehension of Instructions: Good Readiness to make changes:? Action How confident they feel about making changes:positive Patient Instructions: Follow-up with Diabetes Education nurse in 2 months Coding Level of Care Code Est Pt Level 1 (78295) Diagnoses Diabetes mellitus E11.9
== END 2023-03-17 15:49 | disposition home or self-care (01) ==
PROVIDERS: PCP Internal Medicine; Visit Provider Registered Nurse Diabetes Educator
DX: E11.9 Type 2 diabetes mellitus without complications (principal)

== ENCOUNTER → 2023-03-17 14:48 | Outpatient (BNVA) | payer OTHER, SELFPAY | PROVIDERS: PCP Internal Medicine; Visit Provider Registered Nurse Diabetes Educator | DX: E11.9 Type 2 diabetes mellitus without complications (principal) | CPT/HCPCS: 99211 ==

== ENCOUNTER 2023-05-17 07:21 | Outpatient (REF) | payer OTHER, SELFPAY ==
[2023-05-17 08:33] LABS: Alanine Aminotransferase 61 U/L (0-40); Albumin Level 3.9 g/dL (3.5-5.0); Alkaline Phosphatase 67 U/L (39-117); Anion Gap 10 (12-20); Aspartate Amino Transferase 32 U/L (5-37); Bilirubin Total 0.7 mg/dL (0.0-1.0); Blood Urea Nitrogen 12 mg/dL (9-16); Carbon Dioxide 27 mmol/L (22-29); Chloride 110 mmol/L (96-108); Cholesterol 185 mg/dL (<200); Estimated Glomerular Filt Rate > 60; Glucose Fasting 115 mg/dL (60-99); Glucose Random 117 mg/dL (60-115); HDL Cholesterol 39 mg/dL (>40); LDL Cholesterol Calculated 112 mg/dL (<100); Potassium 4.1 mmol/L (3.3-5.1); Sodium 143 mmol/L (135-145); Total Protein 6.7 g/dL (6.5-8.0); Triglycerides 174 mg/dL (<150)
[2023-05-17 08:48] LABS: Estimated Average Glucose 120 mg/dL; Hemoglobin A1c % 5.8 % (<6.0)
[2023-05-17 08:49] LABS: Vitamin D 25-OH Total 34.9 ng/mL (>30)
[2023-05-17 09:51] LABS: Microalbum/Creatinine Ratio Ur 5.8 ug/mg cr (<30)
== END 2023-05-17 07:22 | disposition home or self-care (01) ==
LOC: HO.LAB 07:21
PROVIDERS: PCP Internal Medicine; Visit Provider Internal Medicine
DX: E78.5 Hyperlipidemia, unspecified (principal); E55.9 Vitamin D deficiency, unspecified; E11.40 Type 2 diabetes mellitus with diabetic neuropathy, unspecified
CPT/HCPCS: 36415; 80053; 80061; 82043; 82306; 82570; 83036

== ENCOUNTER 2023-05-19 10:33 | Outpatient (AMB) | payer OTHER, SELFPAY ==
--- NOTE | 2023-05-19 11:03 | A.OFFVIS_ITS ---
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 Accompanied by: Self / Same As Patient Allergies acetaminophen [Percocet] Allergy (Mild, Verified 10/15/22 17:05) rash oxycodone [From Percocet] Allergy (Mild, Verified 10/15/22 17:05) rash HPI Comprehensive Diabetes Asmnt Most Recent Diabetes Results: Microalb/Creat Ratio 5.8 ug/mg cr (<30) 05/17/23 Cholesterol 185 mg/dL (<200) 05/17/23 HDL Cholesterol 39 mg/dL (>40) L 05/17/23 Triglycerides 174 mg/dL (<150) H 05/17/23 Creatinine 0.80 mg/dL (0.5-1.4) 05/17/23 Blood Urea Nitrogen 12 mg/dL (9-16) 05/17/23 Sodium 143 mmol/L (135-145) 05/17/23 Potassium 4.1 mmol/L (3.3-5.1) 05/17/23 Chloride 110 mmol/L (96-108) H 05/17/23 Carbon Dioxide 27 mmol/L (22-29) 05/17/23 Calcium 9.0 mg/dL (8.4-10.2) 05/17/23 AST 32 U/L (5-37) 05/17/23 ALT 61 U/L (0-40) H 05/17/23 Total Protein 6.7 g/dL (6.5-8.0) 05/17/23 Albumin 3.9 g/dL (3.5-5.0) 05/17/23 [facility] Medical History Abnormal barium swallow Dyslipidemia Essential hypertension Lumbar degenerative disc disease Obese Postlaminectomy syndrome Right knee pain Transaminitis Surgical History Fusion of lumbar spine History of arthroscopy of left knee History of colonoscopy History of fracture of left ankle History of lumbar fusion Hx of arthroscopy of right knee Family History Father Diabetes Mother Diabetes Hypertension Asthma Social History Housing: House Alcohol intake: former Patient Tobacco Use Status: Never used Tobacco e-Cigarette/Vaping Use: Never Used Second Hand Smoke Exposure: No service: No Current occupational status: employed Current occupational exposures/hazards: No Cognitive needs: No Hearing needs: No Vision needs: No Assessment & Plan Assessment & Plan (1) Diabetes mellitus: Code(s): E11.9 - Type 2 diabetes mellitus without complications Plan: Learning objectives: The patient was provided with verbal and written education on the following topics as outlined below. The patient met all learning objectives and was able to verbalize understanding and provide teach back of education topics discussed . The patient was provided with the opportunity to ask questions and all questions were answered. Patient Assessment Assess patient education level/literacy/barriers Patient questions/concerns, patient's last A1c 05/17/2023 5.8%, patient is testing glucose once a day fasting glucose numbers within recommended targets Discussed with patient testing glucose 2 hours postprandial to see if glucose remains within target after meals Exercise Medical clearance Effect of exercise on blood sugar Start slowly and gradually increase pace/duration over time Goal amount of exercise Checking blood glucose/have a source of carbs with you Medications (If applicable) * Name of medication * Dosing/administration instructions * Mechanism of action * Potential side effects * Potential adverse reaction and appropriate treatment * Review onset, peak, duration Assess for concerns re: insurance coverage, cost, barriers to compliance Insulin/Injectables (If applicable) * Storage/care of insulin * Injection sites * Site rotation * Onset, peak, duration * Drawing up insulin * Injecting insulin/other injectables * Sharps disposal Continuous blood glucose monitoring (if applicable) Hypoglycemia and Hyperglycemia * Signs and symptoms * Causes * Treatment * Preventing hypoglycemia * When to seek medical attention Medical alert bracelet Lifestyle * Work * Travel * Stress management * Problem solving Know your goals * A1C * Blood sugar targets * Blood pressure * Cholesterol/LDL Urine microalbumin Smart Goal Assessment: Patient will keep carbohydrate portion at meals between 45-60 g Pt met goal:Pt 75% of the time: New Goal:? Patient will follow-up with PCP within 6 months for next A1c Educational Materials: The patient was provided with the following written educational materials: AADE 7 healthy behavior handout Patient Response to instructions: Comprehension of Instructions: good Readiness to make changes: action How confident they feel about making changes: Positive Patient Instructions: Include regular daily activity. ADA recommends 30 minutes of exercise 5 days a week. Weight loss talk to PCP or Educational Diagnostician before starting new plan. Test blood sugar as directed; Fasting and 2hpp largest meal. Watch trends in results. Utilize results and to assess how food, physical activity and medications affect blood sugar results. Bring glucometer or CGM to next visit. Be knowledgeable about diabetes medication, its action, side effects, efficacy, toxicity, prescribed dosage, appropriate timing and frequency of administration, effect of missed and delayed doses and instructions for storage, travel and safety. Problem solving techniques to monitor hypo/hyperglycemia episodes and treatments. Reduce risk reduction behaviors, smoking cessation, regular eye, foot and dental examinations. Patient will follow-up with Diabetes Education nurse in 6 months Coding Level of Care Code Est Pt Level 1 (35984) Diagnoses Diabetes mellitus E11.9
== END 2023-05-19 11:04 | disposition home or self-care (01) ==
PROVIDERS: PCP Internal Medicine; Visit Provider Registered Nurse Diabetes Educator
DX: E11.9 Type 2 diabetes mellitus without complications (principal)

== ENCOUNTER → 2023-05-19 10:33 | Outpatient (BNVA) | payer OTHER, SELFPAY | PROVIDERS: PCP Internal Medicine; Visit Provider Registered Nurse Diabetes Educator | DX: E11.9 Type 2 diabetes mellitus without complications (principal) | CPT/HCPCS: 99211 ==

== ENCOUNTER 2023-10-03 09:06 | Outpatient (AMB) | payer OTHER, SELFPAY ==
--- NOTE | 2023-10-03 09:11 | A.OFFPC_ITS ---
Vital Signs 10/03/23 09:13 Height 5 ft 9 in Weight 227 lb 4 oz BMI 33.6 BP 120/78 Blood Pressure Location Lt brachial Position Sitting Pulse 95 Pulse Source Pulse Oximeter Pulse Oximetry (%) 94 Oxygen Delivery Method Room Air Intake Visit Reasons: Discharged [facility] 09/18 High Blood Sugar Intake Note: Patient is here for hospital discharge follow up. Patient was discharged from [facility] on 09/19/23. 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 Accompanied by: Spouse Allergies lisinopril Allergy (Intermediate, Verified 10/03/23 09:17) Cough acetaminophen [Percocet] Allergy (Mild, Verified 10/03/23 09:17) rash oxycodone [From Percocet] Allergy (Mild, Verified 10/03/23 09:17) rash Tobacco use date assessed: 10/03/23 Dental Screening Dental Screen Date: 10/03/23 Did you have a dental visit in the last 12 months?: Yes Did you have a dental problem in the last 6 months where you did not have access to dental care?: No Was dental information given to patient?: Patient has dentist HPI HPI Comments History of Present Illness Details 57 y/o male patient who presents to the clinic today for ED follow up. He was seen at [facility] - ED on 09/21/23 for Hyperglycemia. Reports his sugar was a bnormally higher than usual. He was treated and discharged home the same day. Pt has T2DM and currently takes Metformin 500 mg Daily. He does report that prior to the Hyperglycemia episode, he was not feeling well due to URI and was using a lot of Dayquil/nightquil. Today feeling better and denies any symptoms. Pt wondering if he could be referred to Dr. Murrieta for Bariatric surgery. [facility] Medical History Abnormal barium swallow Dyslipidemia Essential hypertension Lumbar degenerative disc disease Obese Postlaminectomy syndrome Right knee pain Transaminitis Surgical History History of colonoscopy Fusion of lumbar spine History of fracture of left ankle History of lumbar fusion History of arthroscopy of left knee Hx of arthroscopy of right knee Family History Father Diabetes Mother Diabetes Hypertension Asthma Social History Housing: House Alcohol intake: former Patient Tobacco Use Status: Never used Tobacco e-Cigarette/Vaping Use: Never Used Second Hand Smoke Exposure: No service: No Current occupational status: employed Current occupational exposures/hazards: No Cognitive needs: No Hearing needs: No Vision needs: No Questionnaire Thrive Questionnaire Date Thrive assessed: 04/03/22 BILL-7 AMB Questionnaire BILL-7 Date BILL - 7 assessed: 04/03/22 Source: Developed by Drs. Leandro Teague, Veronique Carter, John Cosme and colleagues, with an educational rangel from [email or web address]. Review of Systems Const All systems reviewed & are unremarkable except as noted in HPI and below Physical exam (Primary Care) Vital Signs: Last Vital Signs Pulse 95 10/03/23 09:13 BP 120/78 10/03/23 09:13 Pulse Ox 94 10/03/23 09:13 Oxygen Delivery Method Room Air 10/03/23 09:13 BMI result Body Mass Index 33.6 Tobacco/Smoking Status: Tobacco use Status Tobacco use date assessed 10/03/23 10/03/23 09:18 Patient Tobacco Use Status Never used Tobacco 10/03/23 09:18 e-Cigarette/Vaping Use Never Used 10/03/23 09:18 Thrive Assessment: Date of Thrive Assessment Date Thrive assessed 04/03/22 10/03/23 09:18 Const General: comfortable and no acute distress Nutritional Appearance: obese Orientation/consciousness: patient oriented x3 Resp Effort & Inspection: normal respiratory effort Cardio Rate: regular rate Rhythm: regular rhythm Neuro General: patient oriented x3, gait normal and moves all extremities Psych Speech and movement: Normal speech and movement present Vital Signs: Last Vital Signs Pulse 95 10/03/23 09:13 BP 120/78 10/03/23 09:13 Pulse Ox 94 10/03/23 09:13 Oxygen Delivery Method Room Air 10/03/23 09:13 BMI result Body Mass Index 33.6 Const General: comfortable and no acute distress Nutritional Appearance: obese Orientation/consciousness: patient oriented x3 Resp Effort & Inspection: normal respiratory effort Cardio Rate: regular rate Rhythm: regular rhythm Neuro General: patient oriented x3, gait normal and moves all extremities Psych Speech and movement: Normal speech and movement present Assessment and Plan Assessment & Plan (1) Hyperglycemia due to type 2 diabetes mellitus: Code(s): E11.65 - Type 2 diabetes mellitus with hyperglycemia Qualifiers: Diabetes mellitus assisted insulin use: without assisted use Qualified Code(s): E11.65 - Type 2 diabetes mellitus with hyperglycemia Plan: Stable now. Continues to use Metformin as directed He has been avoiding any sugars Denies any High BG levels since discharged home. He has an upcoming Appointment with PCP (12/2023), advised Pt to discuss bariatric surgery then with PCP. Coding Level of Care Code Est Pt Level 4 (64234) Diagnoses Type 2 diabetes mellitus with hyperglycemia, without long-term current use of insulin E11.65 Diabetes mellitus manager intermediate insulin use: without assisted use Comment Spent 20 minutes reviewing Hospital notes.
[2023-10-03 09:13] VITALS: BP 120/78; PULSE 95; O2SAT 94; BMI 33.6
== END 2023-10-03 13:06 | disposition home or self-care (01) ==
PROVIDERS: PCP Internal Medicine; Visit Provider Nurse Practitioner Family
DX: E11.65 Type 2 diabetes mellitus with hyperglycemia (principal)
CPT/HCPCS: 99214

== ENCOUNTER 2023-12-25 16:55 | Outpatient (AMB) | payer OTHER, SELFPAY ==
--- NOTE | 2023-12-25 17:02 | MHC.PC.OV ---
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 Accompanied by: Significant Other Allergies lisinopril Allergy (Intermediate, Verified 12/25/23 17:24) Cough acetaminophen [Percocet] Allergy (Mild, Verified 12/25/23 17:24) rash oxycodone [From Percocet] Allergy (Mild, Verified 12/25/23 17:24) rash Medication List - Last Reconciled 12/25/23 by Magali Taveras MD albuterol sulfate 90 mcg/actuation 2 puffs PO Q4-6H PRN alcohol swabs (Alcohol Prep Pads) 1 pad topical DAILY 90 days atorvastatin 10 mg PO BEDTIME 90 days blood pressure monitor (Blood Pressure Kit) As directed blood sugar diagnostic ([employer] Ultra Test strips) Use 1 test strpi once a day blood-glucose meter ([employer] UltraMini kit) As directed cholecalciferol (vitamin D3) 25 mcg PO DAILY 90 days cyclobenzaprine 10 mg PO TID PRN 90 days hydrochlorothiazide 25 mg PO DAILY 90 days hydroxyzine pamoate 25 mg PO BID PRN lancets ([employer] Delica Plus Lancet) Use 1 lancet once a day lancets USe 1 lancet once a day losartan 25 mg PO DAILY 30 days metformin 500 mg PO DAILY 30 days pregabalin 200 mg PO BID 30 days tadalafil (Cialis) 10 mg PO .PRN PRN tadalafil (Cialis) 5 mg PO DAILY 90 days terbinafine HCl 250 mg PO DAILY 90 days Tobacco use date assessed: 10/03/23 Dental Screening Dental Screen Date: 10/03/23 HPI HPI Comments History of Present Illness Details This is a 58-year-old male with diabetes mellitus type 2 that comes for his physical exam accompanied by . A1c within goal. Last diabetic eye exam was less than a year ago. Last colonoscopy was 2018 showing tubular adenoma next colonoscopy should be 2023 and will be refer through open access. Denies any chest pain or shortness on breath. [facility] Medical History Essential hypertension Postlaminectomy syndrome Abnormal barium swallow Dyslipidemia Transaminitis Right knee pain Obese Lumbar degenerative disc disease Surgical History History of colonoscopy Fusion of lumbar spine History of fracture of left ankle History of lumbar fusion History of arthroscopy of left knee Hx of arthroscopy of right knee Family History Father Diabetes Mother Diabetes Hypertension Asthma Social History Housing: House Alcohol intake: former Patient Tobacco Use Status: Never used Tobacco e-Cigarette/Vaping Use: Never Used Second Hand Smoke Exposure: No service: No Current occupational status: employed Current occupational exposures/hazards: No Cognitive needs: No Hearing needs: No Vision needs: No Questionnaire PHQ-9 Over the last 2 weeks, how often have you been bothered by any of the following problems? 1. Little interest or pleasure in doing things: not at all 2. Feeling down, depressed, or hopeless: not at all 3. Trouble falling or staying asleep, or sleeping too much: not at all 4. Feeling tired or having little energy: not at all 5. Poor appetite or overeating: not at all 6. Feeling bad about yourself - or that you are a failure or have let yourself or your family down: not at all 7. Trouble concentrating on things, such as reading the newspaper or watching television: not at all 8. Moving or speaking so slowly that other people could have noticed. Or the opposite - being so fidgety or restless that you have been moving around a lot more than usual: not at all 9. Thoughts that you would be better off or of hurting yourself in some way: not at all Total score: 0 Depression Screening Interpretation: Negative Depression Screening Done: Yes 22939 - PHQ-9 Billing: Yes Source: Developed by Drs. Leandro Teague, Veronique Carter, John Cosme and colleagues, with an educational rangel from [employer]. Thrive Questionnaire Date Thrive assessed: 12/25/23 I am a: Patient What is your living situation today?: I have a steady place to live Within the past 12 months, did the food you bought not last and you didn't have the money to get more?: Never true Within the past 12 months, did you worry whether your food would run out before you got money to buy more?: Never true Do you have trouble paying for medicines?: No Do you have trouble getting transportation to medical appointments?: No Do you have trouble paying your heating and electricity bill?: No Do you have trouble taking care of your child, family member or friend?: No Do you have trouble with day-to-day activities such as bathing, preparing meals, shopping, managing finances, etc.?: No Are you currently unemployed and looking for a job?: No Are you interested in more education?: No Please select the resources that you would like help with: None Currently or been in a relationship where the following occur: No concerns reported THRIVE Score: 0 AUDIT C Alcohol Use Questionnaire (AUDIT-C) 1. How often do you have a drink containing alcohol?: Never Total Score: 0 Score Reviewed/Action Taken: No BILL-7 AMB Questionnaire BILL-7 Date BILL - 7 assessed: 12/25/23 Feeling nervous, anxious, or on edge: 0 = Not at all Not being able to stop or control worryin = Not at all Worrying too much about different things: 0 = Not at all Trouble relaxin = Not at all Being so restless that it is hard to sit still: 0 = Not at all Becoming easily annoyed or irritable: 0 = Not at all Feeling afraid as if something awful might happen: 0 = Not at all Total BILL-7 score (0-4 normal; 5-9 mild; 10-14 moderate; 15-21 severe): 0 Source: Developed by Drs. Leandro Teague, Veronique Carter, John Cosme and colleagues, with an educational rangel from [employer]. Review of Systems Const All systems reviewed & are unremarkable except as noted in HPI and below Card Denies chest pain at rest, Denies chest pain with activity, Denies edema, Denies irregular heart rhythm, Denies claudication, Denies dyspnea, Denies dyspnea on exertion, Denies orthopnea, Denies paroxysmal nocturnal dyspnea and Denies slow heart rate Resp Denies cough, Denies dyspnea and Denies dyspnea on exertion GI Denies abdominal pain, Denies change in bowel habits, Denies excessive flatus, Denies nausea and Denies vomiting Physical exam (Primary Care) Vital Signs: Last Vital Signs BP 128/78 12/25/23 17:03 BMI result Body Mass Index 35.1 Tobacco/Smoking Status: Tobacco use Status Tobacco use date assessed 10/03/23 12/25/23 17:05 Patient Tobacco Use Status Never used Tobacco 12/25/23 17:05 e-Cigarette/Vaping Use Never Used 12/25/23 17:05 PHQ-9: PHQ-9 Score PHQ-9: Total score 0 12/26/23 17:43 Depression Screening Interpretation: Negative Thrive Assessment: Date of Thrive Assessment Date Thrive assessed 12/25/23 12/25/23 17:05 Currently or been in a relationship where the following occur: No concerns reported [facility] Head: Yes normal to inspection, Yes normocephalic and Yes atraumatic Ears: external ears normal Eyes General: appearance normal, both eyes and all related structures Eyelids: Yes eyelids normal Conjunctivae: conjunctivae normal Neck Neck: Yes normal visual inspection and Yes supple Resp Effort & Inspection: normal respiratory effort Auscultation: clear to auscultation bilaterally Cardio Jugular venous distension: no JVD Rate: regular rate Rhythm: regular rhythm Heart sounds: S1 normal heart sound present and S2 normal heart sound present GI Inspection: Yes normal to inspection Palpation (GI): Soft to palpation and nontender Auscultation: normal bowel sounds Skin General skin exam: no rashes or lesions noted Neuro General: no focal motor deficits Extrem General: Yes full ROM Psych Appearance: grossly normal Office Procedures Flu Questionnaire Does the patient have a severe egg allergy?: No Does the patient have severe life threatening allergies?: No Does the patient have a fever or illness today?: No Has the patient ever had Guillain-Tolley Syndrome?: No Has the patient ever had any past reaction to a flu shot?: No Results AMB Hemoglobin A1c AMB Hemoglobin A1c 6.5 % Last Edit by KELLIE Sanchez on 12/25/23 17:14 Immunizations Fluarix Triv [id number] (PF) 45 mcg (15 mcg x 3)/0.5 mL IM syringe Performing Provider: Magali Taveras MD [place] [facility] Administered by: KELLIE Sanchez on 12/25/23 17:39 Dose Route Admin Location Dispensed Lot Number Expiration Date NDC First Sampler 0.5 mL IM Left Deltoid 0.5 mL [id number] 09/06/24 [id number] Sequence VIS Given Date VIS Provided VIS Publication Date 12/25/23 Single Vaccine 20 Eligibility Eligibility Date Funding Source Not [facility] Eligible 12/25/23 Private Results Reviewed Results Reviewed: Laboratory Last Values Hgb A1c (Clinic) 6.5 % (4.0-6.0) H 12/25/23 17:02 Coding Level of Care Code Est Pt Prev Care 40-64y(36529) Diagnoses Physical exam Z00.00 Type 2 diabetes mellitus without complication, without long-term current use of insulin E11.9 Diabetes mellitus type: type 2 Diabetes mellitus senior care insulin use: without senior care use Diabetes mellitus complication status: without complication Time Spent (min) 30 Assessment & Plan Assessment & Plan (1) Physical exam: Code(s): Z00.00 - Encounter for general adult medical examination without abnormal findings Category: Medical Plan: Repeat in a year. (2) Diabetes mellitus: Code(s): E11.9 - Type 2 diabetes mellitus without complications Category: Medical Qualifiers: Diabetes mellitus type: type 2 Diabetes mellitus senior care insulin use: without senior care use Diabetes mellitus complication status: without complication Qualified Code(s): E11.9 - Type 2 diabetes mellitus without complications Plan: Continue metformin. A1c goal is equal or less than 7%. Do diabetic eye exam yearly. Orders: Orders Lipid Panel 12/25/23 E78.5 - Hyperlipidemia, unspecified Microalbumin, Random (w Creat) 12/25/23 R80.9 - Proteinuria, unspecified Comprehensive [place]. Panel Fast 12/25/23 E11.9 - Type 2 diabetes mellitus without complications Influenza [id number] Immunization 12/25/23 Z23 - Encounter for immunization AMB Hemoglobin A1c 12/25/23 E11.9 - Type 2 diabetes mellitus without complications Referrals Gastroenterology Referral D12.6 - Benign neoplasm of colon, unspecified Open Access Screening Colonoscopy Referral Z12.12 - Encounter for screening for malignant neoplasm of rectum Medications: Discontinued tadalafil (Cialis) [id number] [facility] [id number] Member [id number] Discontinued Reason: Patient Completed Course 10 mg PO .PRN PRN 20 tabs 0RF sexual activity tadalafil (Cialis) [id number] [facility] [id number] Member [id number] Discontinued Reason: Patient Completed Course 5 mg PO DAILY 90 days 90 tabs 0RF
[2023-12-25 17:03] VITALS: BP 128/78; BMI 35.1
== END 2023-12-25 17:41 | disposition home or self-care (01) ==
PROVIDERS: PCP Internal Medicine; Visit Provider Internal Medicine
DX: Z00.00 Encounter for general adult medical examination without abnormal findings (principal); E11.9 Type 2 diabetes mellitus without complications

== ENCOUNTER → 2023-12-25 16:55 | Outpatient (BNVA) | payer OTHER, SELFPAY | PROVIDERS: PCP Internal Medicine; Visit Provider Internal Medicine | DX: Z00.00 Encounter for general adult medical examination without abnormal findings (principal); E11.9 Type 2 diabetes mellitus without complications; Z79.84 Long term (current) use of oral hypoglycemic drugs; Z23 Encounter for immunization | CPT/HCPCS: 83036; 90471; 90656; 96127; 99396 ==

== ENCOUNTER 2024-01-10 08:09 | Outpatient (REF) | payer OTHER, SELFPAY ==
[2024-01-10 09:05] LABS: Alanine Aminotransferase 140 U/L (0-40); Albumin Level 3.8 g/dL (3.5-5.0); Alkaline Phosphatase 69 U/L (39-117); Anion Gap 12 (12-20); Aspartate Amino Transferase 78 U/L (5-37); Bilirubin Total 0.6 mg/dL (0.0-1.0); Blood Urea Nitrogen 11 mg/dL (9-16); Carbon Dioxide 26 mmol/L (22-29); Chloride 110 mmol/L (96-108); Cholesterol 159 mg/dL (<200); Estimated Glomerular Filt Rate > 60; Glucose Fasting 114 mg/dL (60-99); HDL Cholesterol 37 mg/dL (>40); LDL Cholesterol Calculated 95 mg/dL (<100); Potassium 3.7 mmol/L (3.3-5.1); Sodium 144 mmol/L (135-145); Total Protein 6.5 g/dL (6.5-8.0); Triglycerides 139 mg/dL (<150)
[2024-01-10 09:06] LABS: Creatinine Urine 233.88 mg/dL; Microalbum/Creatinine Ratio Ur 6.4 ug/mg cr (<30)
== END 2024-01-10 08:10 | disposition home or self-care (01) ==
LOC: HO.LAB 08:09
PROVIDERS: PCP Internal Medicine; Visit Provider Internal Medicine
DX: E11.9 Type 2 diabetes mellitus without complications (principal); E78.5 Hyperlipidemia, unspecified
CPT/HCPCS: 36415; 80053; 80061; 82043; 82570

== ENCOUNTER 2024-02-25 09:50 | Outpatient (RCR) | payer OTHER, SELFPAY ==
--- NOTE | 2024-02-25 10:35 | MHC.PT.EP ---
[facility] [place] Office [place] Office [place] Office [address] [place] [address] [phone] F: [phone] F: [phone] F: [phone] F: [phone] Physical Therapy Plan of Care Date of Evaluation: 02/25/24 Date of Surgery: n/a Diagnosis: B knee pain Assessment: Patient is a 58 year old male presenting to PT with complaints of pain in his B knees. Pt reports onset of pain began about 7-8 months ago due to insidious onset. He presents today with impairments in pain, tenderness to palpation, hip strength, knee strength. 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 Pt expresses manager long term care goal of reducing pain, and is motivated to work towards this in PT. Clinical presentation today is most consistent with signs and sx associated with B knee pain and pt will benefit from skilled PT 2 week x 4 weeks to address the following problems and impairments noted upon evaluation: pain, tenderness to palpation, hip strength, knee strength. These problems limit the patient with the following functional activities: ambulating, stair negotiation, ADLs, work. The prescribed treatment plan of care is medically necessary. Co-morbidities of HTN, T2DM were identified and taken into considerations of plan of care. Pt was educated on HEP, role of PT, prognosis, POC. Frequency and Duration: The patient will be seen 2 x week x 4 weeks Short Term Goals: Pt will demonstrate improved knee MMT strength by 1/3 grade on R in 2 weeks. Pt will demonstrate improved hip MMT strength by 1/3 grade in 2 weeks. Pt will demonstrate less tenderness to palpation in 2 weeks. Nursing Home Goals: Pt will demonstrate improved LEFI score by 9 points in 4 weeks for improved functional mobility. Pt will demonstrate ability to ambulate with min to no pain in 4 weeks for improved ability to walk community distances. Pt will demonstrate improved ability to negotiate stairs with min to no pain in 4 weeks for improved ability to get in and out of his work truck. Treatment Plan: Modalities to reduce pain, spasms and effusion. Manual therapy to restore motion and function. Therapeutic exercise to improve strength and flexibility. Neuromuscular re-education for posture and balance. Therapeutic activities to return to functional activities of daily living. Electronically signed by: Desiree Dyer, PT, DPT, ATC Please sign and return to therapist. Thank you for your referral.
--- NOTE | 2024-04-05 06:13 | MHC.PT.DC ---
[facility] [place] Office [place] Office [place] Office [address] [facility] [phone] F: [phone] F: [phone] F: [phone] F: [phone] Physical Therapy Discharge Report Diagnosis: B knee pain Date of Surgery: n/a Date of Evaluation: 02/25/24 Date of Discharge: 04/05/24 Treatments to Date: 1 Cancellations to Date: 0 No Shows to Date: 4 Discharge Status: Discharge Summary: Pt has not returned to skilled PT since eval which was >30 days ago. Therefore pt to be d/c. Electronically signed by: Desiree Dyer, PT, DPT, ATC Please sign and return to therapist. Thank you for your referral.
== END 2024-04-05 06:13 | disposition home or self-care (01) ==
LOC: HO.PTCHIC 09:50
PROVIDERS: PCP Internal Medicine; Visit Provider Internal Medicine
DX: M25.562 Pain in left knee (principal); M25.561 Pain in right knee
CPT/HCPCS: 97110; 97161

== ENCOUNTER → 2024-03-25 15:25 | Outpatient (REF) | payer OTHER, SELFPAY | LOC: HO.SL 15:25 | PROVIDERS: PCP Internal Medicine; Visit Provider Internal Medicine | DX: G47.30 Sleep apnea, unspecified (principal); R40.0 Somnolence; R06.83 Snoring | CPT/HCPCS: 95806 ==

== ENCOUNTER → 2024-03-25 15:34 | Outpatient (BNV) | payer OTHER, SELFPAY | PROVIDERS: PCP Internal Medicine; Visit Provider Psychiatry & Neurology Neurology | DX: R06.83 Snoring (principal); R40.0 Somnolence | CPT/HCPCS: 95806 ==

== ENCOUNTER 2024-04-20 15:14 | Outpatient (AMB) | payer OTHER, SELFPAY ==
[2024-04-20 15:22] VITALS: BP 126/78; PULSE 72; O2SAT 99; BMI 34.3
--- NOTE | 2024-04-20 15:22 | MHC.OFFVIS ---
Vital Signs 04/20/24 15:22 Height 5 ft 9 in Weight 232 lb BMI 34.3 BP 126/78 Blood Pressure Location Rt brachial Position Sitting Pulse 72 Pulse Source Pulse Oximeter Pulse Oximetry (%) 99 Oxygen Delivery Method Room Air Intake Visit Reasons: nonobstructive alveolar hypoventilation Chip Bin Operator Required: No Rotary Lithographic Press Operator: Rotary Lithographic Press Operator offered & declined Accompanied by: Self / Same As Patient Allergies lisinopril Allergy (Intermediate, Verified 04/20/24 15:30) Cough acetaminophen [Percocet] Allergy (Mild, Verified 04/20/24 15:30) rash oxycodone [From Percocet] Allergy (Mild, Verified 04/20/24 15:30) rash Medication List - Last Reconciled 04/20/24 by Tia Morrow LPN albuterol sulfate 90 mcg/actuation 2 puffs PO Q4-6H PRN alcohol swabs (Alcohol Prep Pads) 1 pad topical DAILY 90 days atorvastatin 10 mg PO BEDTIME 90 days blood pressure monitor (Blood Pressure Kit) As directed blood sugar diagnostic ([employer] Ultra Test strips) Use 1 test strpi once a day blood-glucose meter ([employer] UltraMini kit) As directed cholecalciferol (vitamin D3) 25 mcg PO DAILY 90 days cyclobenzaprine 10 mg PO TID PRN 90 days hydrochlorothiazide 25 mg PO DAILY 90 days hydroxyzine pamoate 25 mg PO BID PRN lancets ([employer] Delica Plus Lancet) Use 1 lancet once a day lancets USe 1 lancet once a day losartan 25 mg PO DAILY 30 days metformin 500 mg PO DAILY 30 days pregabalin 200 mg PO BID 30 days terbinafine HCl 250 mg PO DAILY 90 days HPI HPI nonobstructive alveolar hypoventilation: Details: Tom is a pleasant 58 year old male, never smoker, with underlying HTN. He was referred by PCP after recent home sleep study for DOT screening. Study revealed mild nocturnal hypoxemia <88% for 7 minutes, possibly related to underlying respiratory disorder vs technical issues, negative for AROLDO, He denies prior need for supplemental oxygen. He reports a dry cough that has developed over the last year as well as dyspnea on moderate exertion. Denies wheezing or chest tightness. Denies prior dx of asthma. Denies seasonal allergies. Denies second hand smoke exposure. Denies any occupational exposures. [facility] Medical History Essential hypertension Postlaminectomy syndrome Abnormal barium swallow Dyslipidemia Transaminitis Right knee pain Obese Lumbar degenerative disc disease Surgical History History of colonoscopy Fusion of lumbar spine History of fracture of left ankle History of lumbar fusion History of arthroscopy of left knee Hx of arthroscopy of right knee Family History Father Diabetes Mother Diabetes Hypertension Asthma Social History Housing: House Alcohol intake: former Patient Tobacco Use Status: Never used Tobacco e-Cigarette/Vaping Use: Never Used Second Hand Smoke Exposure: No service: No Current occupational status: employed Current occupational exposures/hazards: No Cognitive needs: No Hearing needs: No Vision needs: No Review of Systems Const Denies chills, Denies excessive sweating, Denies fever(s), Denies headache(s) and Denies night sweats Eyes Denies dry eyes, Denies irritation and Denies itchy eyes ENT Reports Normal hearing present, Denies headache(s), Denies nasal congestion, Denies nasal discharge, Denies post nasal drip and Denies sore throat Card Denies chest pain, Denies chest pain at rest, Denies chest pain with activity, Denies claudication, Denies leg edema, Denies orthopnea and Denies paroxysmal nocturnal dyspnea Resp Denies chest congestion, Denies excessive phlegm production, Denies pain on inspiration, Denies pain with cough, Denies stridor and Denies wheezing Musc Denies myalgias Neuro Reports Normal hearing present and Denies headache(s) Endo Denies excessive sweating Lemuel/Lymph Denies lymphadenopathy Aller/Immun Denies itchy eyes, Denies seasonal rhinorrhea and Denies wheezing Physical Exam Vital Signs: Last Vital Signs Pulse 72 04/20/24 15:22 BP 126/78 04/20/24 15:22 Pulse Ox 99 04/20/24 15:22 Oxygen Delivery Method Room Air 04/20/24 15:22 BMI result Body Mass Index 34.3 Const General: cooperative, healthy appearing, comfortable, no acute distress, well developed and alert Nutritional Appearance: obese Orientation/consciousness: patient oriented x3 Limitations: no limitations HEENT Head: Yes normal to inspection, Yes normocephalic and Yes atraumatic Ears: hearing grossly normal bilaterally and external ears normal Eyes General: appearance normal, both eyes and all related structures Eyelids: Yes eyelids normal Sclerae: sclerae normal EOM: EOMs intact bilaterally Neck Neck: Yes normal visual inspection and Yes no lymphadenopathy Lymphatic: no lymphadenopathy noted Chest Chest palpation & inspection: normal inspection of the chest Resp Effort & Inspection: normal respiratory effort, able to speak in complete sentences, no audible wheezes, no cough, no stridor, not tachypneic, no tripod positioning and no use of accessory muscles Auscultation: clear to auscultation bilaterally Cardio Jugular venous distension: no JVD Rate: regular rate Rhythm: regular rhythm Skin Other: warm, dry General skin exam: no rashes or lesions noted Neuro General: patient oriented x3 Cranial nerves: Yes Normal hearing present Cognition (Neuro): normal cognition Gait exam (Neuro): Normal gait present Extrem General: Yes normal to inspection, Yes capillary refill normal, Yes no clubbing, cyanosis or edema and Yes no pedal edema Psych Appearance: grossly normal and well kempt Speech and movement: Normal speech and movement present and Clear speech present Affect: normal affect Attitude: cooperative Thought process: Normal thought process present Thought content: Normal thought content present Insight: Good insight present (Psych) Judgement: Good judgement present (Psych) Quality Reporting (2019) Adult ([facility] 138/05/01/68) Smoking risk assessment performed?: Yes Patient Tobacco Use Status: Never used Tobacco Assessment & Plan Assessment & Plan (1) Nocturnal hypoxemia: Code(s): G47.34 - Idiopathic sleep related nonobstructive alveolar hypoventilation Category: Medical (2) Cough: Code(s): R05 - Cough Category: Medical (3) Dyspnea on exertion: Code(s): R06.09 - Other forms of dyspnea Category: Medical Plan Tom presents for pulmonary evaluation after recent home sleep study revealed mild nocturnal hypoxemia. He also reports year long history of dry cough and dyspnea on exertion, will send for PFT to evaluate for any obstructive or restrictive defect. Will send for CXR to assess for any underlying conditions contributing to mild nocturnal hypoxemia, will consider chest CT. All questions were answered and patient is in agreement of plan. Will follow up to review results or sooner if needed. Orders: Orders PFT pulmonary function test Today R05 - Cough, R06.09 - Other forms of dyspnea XR chest 2V Today R05 - Cough Coding Level of Care Code New Pt Level 4 (56046) Diagnoses Nocturnal hypoxemia G47.34 Cough R05 Dyspnea on exertion R06.09
--- OUTSIDE RECORDS SUMMARY | 2024-04-20 16:01 | XMS_ITS | Clinical Summary ---
Author Organization [facility] Address [address] [place] [address] Phone Care Team Providers Care Infrastructure Manager Name Role Phone Physician, No Pcp Primary Care Provider Unavaila ble Allergies Active Allergy Reactions Criticality Noted Date Comments Oxycodone-Acetaminophen Itching 03/10/2024 Medications cyclobenzaprine (FLEXERIL) 10 mg tablet Take 1 tablet (10 mg total) by mouth 3 (three) times a day if needed for muscle spasms. Active pregabalin (LYRICA) 200 mg capsule Take 1 capsule (200 mg total) by mouth 2 (two) times a day. Max Daily Amount: 400 mg Active hydroCHLOROthia zide (HYDRODIURIL) 25 mg tablet Take 1 tablet (25 mg total) by mouth 1 (one) time each day. Active cholecalciferol (VITAMIN D-3) 25 mcg (1,000 unit) tablet Take 1 tablet (1,000 Units total) by mouth 1 (one) time each day. Active atorvastatin (LIPITOR) 10 mg tablet Take 1 tablet (10 mg total) by mouth at bedtime. Active losartan (COZAAR) 25 mg tablet Take 1 tablet (25 mg total) by mouth 1 (one) time each day. Active Active Problems No known active problems Encounters Date Type Department Care Team Description 04/04/2024 8:27 PM EST - 04/05/2024 2:25 AM EST Emergency [facility] Emergency [address] [place] [address] Discharge Disposition: Home or Self Care 03/10/2024 2:11 PM EST - 03/10/2024 6:35 PM EST Emergency [facility] Emergency [address] [place] [address] Acute pharyngitis, unspecified etiology (Primary Dx) Discharge Disposition: Home or Self Care from Last 3 Months Medical History Medical History Date Comments Diabetes mellitus (CMS/HCC) Hypertension Social History Tobacco Use Types Packs/Day Years Used Date Smoking Tobacco: Never Smokeless Tobacco: Never Tobacco Cessation:Counseling Given: Not Answered Alcohol Use Standard Drinks/Week Comments Never 0 (1 standard drink = 0.6 oz pur e alcohol) Sex and Gender Information Value Date Recorded Sex Assigned at Not on file Legal Sex Male 12:52 AM EST Gender Identity Not on file Sexual Orientation Not on file Obstetrics History Last Filed Vital Signs Vital Sign Reading Time Taken Comments Blood Pressure 132/87 04/04/2024 8:43 PM EST Pulse 90 04/04/2024 8:43 PM EST Temperature 36.6 ??C (97.9 ??F) 04/04/2024 8:[address] Respiratory Rate 16 04/04/2024 8:43 PM EST Oxygen Saturation 96% 04/04/2024 8:43 PM EST Inhaled Oxygen Concentration - - Weight 104 kg (230 lb) 04/04/2024 8:43 PM EST Height 172.7 cm (5' 8 ) 04/04/2024 8:43 PM EST Body Mass Index 34.97 04/04/2024 8:43 PM EST Plan of Treatment Health Maintenance Due Date Last Done Comments Pneumococcal Vaccine: Pediatrics (0 to 5 Years) and At-Risk Patients (6 to 64 Years) (1 of 2 - PCV) 12/10/1973 Hepatitis B Vaccines (1 of 3 - 19+ 3-dose series) 12/10/1986 Zoster Vaccines (1 of 2) 12/10/2017 Cholesterol Screening (Lipid Panel) 02/10/2022 Colorectal Cancer Screening: Colonoscopy 02/10/2022 Depression Screening 02/10/2022 HIV Screening 02/10/2022 Hepatitis C Screening 02/10/2022 Social Influencers of Health Screening 02/10/2022 COVID-19 Vaccine ( season) 2023 02/15/2021, 07/04/2020, 06/12/2020 DTaP,Tdap,and Td Vaccines (2 - Td or Tdap) 06/19/2025 06/20/2015 Influenza Vaccine Completed 12/25/2023, , 12/05/2020, Additional history exists HIB Vaccines Aged Out No longer eligi ble based on patient's age to complete this topic HPV Vaccines Aged Out No longer eligi ble based on patient's age to complete this topic Hepatitis A Vaccines Aged Out No long er eligible based on patient's age to complete this topic IPV Vaccines Aged Out No longer eligi ble based on patient's age to complete this topic MMR Vaccines Aged Out No longer eligi ble based on patient's age to complete this topic Meningococcal ACWY Vaccine Aged Out N o longer eligible based on patient's age to complete this topic RSV Immunization Patients Under 20 months Aged Out No longer eligible based on patient's age to complete this topic Varicella Vaccines Aged Out No longer eligible based on patient's age to complete this topic Procedures Procedure Name Priority Date/Time Associated Diagnosis Comments URINALYSIS WITH REFLEX MICROSCOPIC STAT 04/04/2024 11:47 PM EST URINALYSIS WITH REFLEX MICROSCOPIC STAT 04/04/2024 11:47 PM EST CBC WITH AUTO DIFFERENTIAL STAT 04/04/2024 9:58 PM EST VENOUS BLOOD GAS STAT 04/04/2024 9:58 PM EST BETA HYDROXYBUTYRATE STAT 04/04/2024 9:58 PM EST OSMOLALITY STAT 04/04/2024 9:58 PM EST MAGNESIUM STAT 04/04/2024 9:58 PM EST LIPASE STAT 04/04/2024 9:58 PM EST COMPREHENSIVE METABOLIC PANEL STAT 04/04/2024 9:58 PM EST CBC AND DIFFERENTIAL STAT 04/04/2024 9:58 PM EST POCT GLUCOSE BLOOD Routine 04/04/2024 8: 48 PM EST POCT GLUCOSE BLOOD Routine 03/10/2024 4: 55 PM EST CULTURE THROAT STAT 03/10/2024 4:22 PM EST RESPIRATORY VIRUS PANEL MOLECULAR STUDY STAT 03/10/2024 4:22 PM EST RAPID STREP A SCREEN STAT 03/10/2024 4:22 PM EST from Last 3 Months Results * Urinalysis with reflex microscopic (04/04/2024 11:47 PM EST) Specific [place] Urine 1.018 1.003 - 1.030 LAB URINALYSIS - AUTOMATED METHOD 04/05/2024 12:16 AM [facility] pH, Urine 6.0 5.0 - 8.0 pH LAB URINALYSIS - AUTOMATED METHOD 04/05/2024 12:16 AM [facility] Leukocytes, Urine Negative Negative LAB URINALYSIS - AUTOMATED METHOD 04/05/2024 12:16 AM [facility] Nitrite, Urine Negative Negative LAB URINALYSIS - AUTOMATED METHOD 04/05/2024 12:16 AM [facility] Protein, Urine Negative <=Trace mg/dL LAB URINALYSIS - AUTOMATED METHOD 04/05/2024 12:16 AM [facility] Glucose, Urine Negative Negative mg/dL LAB URINALYSIS - AUTOMATED METHOD 04/05/2024 12:16 AM [facility] Ketones, Urine Negative Negative mg/dL LAB URINALYSIS - AUTOMATED METHOD 04/05/2024 12:16 AM [facility] Urobilinogen, Urine 1.0 0.2 - 1.0 mg/dL LAB URINALYSIS - AUTOMATED METHOD 04/05/2024 12:16 AM [facility] Bilirubin, Urine Negative Negative LAB URINALYSIS - AUTOMATED METHOD 04/05/2024 12:16 AM EST [facility] Blood, Urine Negative Negative LAB URINALYSIS - AUTOMATED METHOD 04/05/2024 12:16 AM [facility] Urine Urine specimen obtained by clean catch procedure / Unknown Non-blood Collection / Unknown 04/04/2024 11:47 PM EST 04/05/2024 12:01 AM EST [facility] B Ajay PATEL LAB URINE ORDERABLES Final Resu lt Performing Organization Address City/[facility]/ZIP Co de Phone Number [facility] [address] [place] [address], [place] [phone] * Beta hydroxybutyrate (04/04/2024 9:58 PM EST) Beta-Hydroxybu tyrate 1.0 0.2 - 2.8 mg/dL LAB CHEMISTRY METHOD 04/04/2024 10:28 PM [facility] Blood Venous blood specimen / Unknown Venipuncture / Unknown 04/04/2024 9:58 PM EST 04/04/2024 10:03 PM EST Gordy Aleta Moss MD LAB BLOOD ORDERABLES Final Resu lt [facility] [address] [place] [address], [place] [phone] * (ABNORMAL) CBC auto differential (04/04/2024 9:58 PM EST) WBC 8.3 4.8 - 10.8 K/[facility] LAB HEMETOLOGY METHOD 04/04/2024 10:10 PM [facility] RBC 5.00 4.50 - 5.50 M/[facility] LAB HEMETOLOGY METHOD 04/04/2024 10:10 PM [facility] Hemoglobin 15.1 13.5 - 17.5 g/dL LAB HEMETOLOGY METHOD 04/04/2024 10:10 PM [facility] Hematocrit 44.1 42.0 - 54.0 % LAB HEMETOLOGY METHOD 04/04/2024 10:10 PM [facility] MCV 88.2 79.0 - 98.0 FL LAB HEMETOLOGY METHOD 04/04/2024 10:10 PM [facility] MCH 30.2 27.0 - 32.0 pcg LAB HEMETOLOGY METHOD 04/04/2024 10:10 PM [facility] MCHC 34.2 32.0 - 37.0 g/dL LAB HEMETOLOGY METHOD 04/04/2024 10:10 PM [facility] RDW 13.1 11.0 - 15.0 % LAB HEMETOLOGY METHOD 04/04/2024 10:10 PM [facility] Platelets 165 130 - 400 K/mcL LAB HEMETOLOGY METHOD 04/04/2024 10:10 PM [facility] MPV 12.1(H) 7.0 - 11.0 FL LAB HEMETOLOGY METHOD 04/04/2024 10:10 PM [facility] NRBC 0.0 <1.0 % LAB HEMETOLOGY METHOD 04/04/2024 10:10 PM [facility] NRBC Absolute 0.00 <0.10 K/mcL LAB HEMETOLOGY METHOD 04/04/2024 10:10 PM [facility] Neutrophils Relative 40.9 % LAB HEMETOLOGY METHOD 04/04/2024 10:10 PM [facility] Lymphocytes Relative 45.4 % LAB HEMETOLOGY METHOD 04/04/2024 10:10 PM [facility] Monocytes Relative 11.0 % LAB HEMETOLOGY METHOD 04/04/2024 10:10 PM [facility] Eosinophils Relative 1.9 % LAB HEMETOLOGY METHOD 04/04/2024 10:10 PM EST [facility] Basophils Relative 0.6 % LAB HEMETOLOGY METHOD 04/04/2024 10:10 PM [facility] Immature Granulocytes Relative 0.2 % LAB HEMETOLOGY METHOD 04/04/2024 10:10 PM [facility] Neutrophils Absolute 3.39 1.50 - 7.00 K/mcL LAB HEMETOLOGY METHOD 04/04/2024 10:10 PM EST [facility] Lymphocytes Absolute 3.77 1.00 - 5.00 K/mcL LAB HEMETOLOGY METHOD 04/04/2024 10:10 PM EST [facility] Monocytes Absolute 0.91 0.20 - 1.00 K/mcL LAB HEMETOLOGY METHOD 04/04/2024 10:10 PM EST [facility] Eosinophils Absolute 0.16 0.00 - 0.50 K/mcL LAB HEMETOLOGY METHOD 04/04/2024 10:10 PM EST [facility] Basophils Absolute 0.05 0.00 - 0.20 K/mcL LAB HEMETOLOGY METHOD 04/04/2024 10:10 PM EST [facility] Immature Granulocytes Absolute 0.02 0.00 - 0.03 K/mcL LAB HEMETOLOGY METHOD 04/04/2024 10:10 PM EST [facility] Blood Venous blood specimen / Unknown Venipuncture / Unknown 04/04/2024 9:58 PM EST 04/04/2024 10:03 PM EST us Gordy Moss MD LAB BLOOD ORDERABLES Final Resu lt [facility] [address] [place] [address], * Osmolality (04/04/2024 9:58 PM EST) Osmolality Gomez 296 280 - 300 mOsm/kg LAB CHEMISTRY METHOD 04/04/2024 10:38 PM EST [facility] Blood Venous blood specimen / Unknown Venipuncture / Unknown 04/04/2024 9:58 PM EST 04/04/2024 10:03 PM EST Gordykyra Moss MD LAB BLOOD ORDERABLES Final Resu lt [facility] [address] [place] [address], [place] [phone] * Magnesium (04/04/2024 9:58 PM EST) [facility] Magnesium 2.1 1.9 - 2.6 mg/dL LAB CHEMISTRY METHOD 04/04/2024 10:28 PM EST [facility] Blood Venous blood specimen / Unknown Venipuncture / Unknown 04/04/2024 9:58 PM EST 04/04/2024 10:03 PM EST Gordykyra Moss MD LAB BLOOD ORDERABLES Final Resu lt Performing Organization Address City/[facility]/ZIP Co de Phone Number [facility] [address] [place] [address], [place] [phone] * Lipase (04/04/2024 9:58 PM EST) [facility] Lipase 30 13 - 75 unit/L LAB CHEMISTRY METHOD 04/04/2024 10:28 PM EST [facility] Blood Venous blood specimen / Unknown Venipuncture / Unknown 04/04/2024 9:58 PM EST 04/04/2024 10:03 PM EST us Gordy Moss MD LAB BLOOD ORDERABLES Final Resu lt [facility] [address] [place] [address], [place] [phone] * (ABNORMAL) Venous blood gas (04/04/2024 9:58 PM EST) pH, Mustapha 7.42 7.32 - 7.42 pH 04/04/2024 10:07 PM [facility] pCO2, Mustapha 46 41 - 51 mmHg 04/04/2024 10:07 PM [facility] pO2, Must[place]ha 21(L) 25 - 40 mmHg 04/04/2024 10:07 PM [facility] HCO3, Venous 26.5(H) 22.0 - 26.0 mmol/L 04/04/2024 10:07 PM [facility] O2 Sat, Mustapha 39.0 % 04/04/2024 10:07 PM [facility] Base Excess, Mustapha 4.4(H) -2.0 - 2.0 mmol/L 04/04/2024 10:07 PM [facility] Blood Venous blood specimen / Unknown Venipuncture / Unknown 04/04/2024 9:58 PM EST 04/04/2024 10:02 PM EST Gordy Aleta Moss MD LAB BLOOD ORDERABLES Final Resu lt [facility] [address] [place] [address], * (ABNORMAL) Comprehensive metabolic panel (04/04/2024 9:58 PM EST) Sodium 138 133 - 145 mmol/L LAB CHEMISTRY METHOD 04/04/2024 10:29 PM [facility] Potassium 3.6 3.5 - 5.5 mmol/L LAB CHEMISTRY METHOD 04/04/2024 10:29 PM [facility] Chloride 108 96 - 110 mmol/L LAB CHEMISTRY METHOD 04/04/2024 10:29 PM [facility] CO2 28 21 - 32 mmol/L LAB CHEMISTRY METHOD 04/04/2024 10:29 PM [facility] Anion Gap 2(L) 3 - 11 LAB CHEMISTRY METHOD 04/04/2024 10:29 PM [facility] Glucose 156(H) 70 - 100 mg/dL LAB CHEMISTRY METHOD 04/04/2024 10:29 PM [facility] BUN 10 5 - 25 mg/dL LAB CHEMISTRY METHOD 04/04/2024 10:29 PM [facility] Creatinine 0.92 0.70 - 1.30 mg/dL LAB CHEMISTRY METHOD 04/04/2024 10:29 PM [facility] eGFR 98 >=60 mL/min/1. 73m2 LAB CHEMISTRY METHOD 04/04/2024 10:29 PM [facility] Comment:Calculation based on the??Chronic Kidney Disease Epidemiology Collaboration (CKD-EPI) equation refit??without adjustment for race. BUN/Creatinine Ratio 10.9 LAB CHEMISTRY METHOD 04/04/2024 10:29 PM [facility] Calcium 8.9 8.5 - 10.5 mg/dL LAB CHEMISTRY METHOD 04/04/2024 10:29 PM [facility] AST (SGOT) 61(H) 10 - 42 unit/L LAB CHEMISTRY METHOD 04/04/2024 10:29 PM [facility] ALT (SGPT) 123(H) 10 - 60 unit/L LAB CHEMISTRY METHOD 04/04/2024 10:29 PM [facility] Alkaline Phosphatase 90 42 - 121 unit/L LAB CHEMISTRY METHOD 04/04/2024 10:29 PM [facility] Total Protein 6.5 6.0 - 8.0 g/dL LAB CHEMISTRY METHOD 04/04/2024 10:29 PM [facility] Albumin 3.6 3.2 - 5.0 g/dL LAB CHEMISTRY METHOD 04/04/2024 10:29 PM EST [facility] Total Bilirubin 0.6 0.0 - 1.4 mg/dL LAB CHEMISTRY METHOD 04/04/2024 10:29 PM EST [facility] Blood Venous blood specimen / Unknown Venipuncture / Unknown 04/04/2024 9:58 PM EST 04/04/2024 10:03 PM EST Gordy Moss MD LAB BLOOD ORDERABLES Final Resu lt Performing Organization Address City/[facility]/ZIP Co de Phone Number [facility] [address] [place] [address], [place] [phone] * (ABNORMAL) POCT Glucose, blood (04/04/2024 8:48 PM EST) Only the most recent of2 resultswithin the time period is included. [facility] Glucose POCT 145(H) 70 - 100 mg/dL 04/04/2024 8:48 PM [facility] Blood Capillary blood specimen / Unknown 04/04/2024 8:48 PM EST 04/04/2024 8:50 PM EST us Generic Provider Poct LAB POINT OF CARE TEST DOCKED DEVICE UNSOLICITED RESULTS Final Result Performing Organization Address [facility]/ZIP Co de Phone Number [facility] [address] [place] [address], [place] [phone] * Respiratory virus panel molecular study (03/10/2024 4:22 PM EST) [facility] Adenovirus Detection by PCR Not Detected Not Detected LAB MICROBIOLOGY METHOD 03/10/2024 5:55 PM EST [facility] Influenza A PCR Not Detected Not Detected LAB MICROBIOLOGY METHOD 03/10/2024 5:55 PM [facility] Influenza B PCR Not Detected Not Detected LAB MICROBIOLOGY METHOD 03/10/2024 5:55 PM EST [facility] Coronavirus 229E Not Detected Not Detected LAB MICROBIOLOGY METHOD 03/10/2024 5:55 PM EST [facility] Coronavirus HKU1 Not Detected Not Detected LAB MICROBIOLOGY METHOD 03/10/2024 5:55 PM EST [facility] Coronavirus OC43 Not Detected Not Detected LAB MICROBIOLOGY METHOD 03/10/2024 5:55 PM [facility] Coronavirus NL63 Not Detected Not Detected LAB MICROBIOLOGY METHOD 03/10/2024 5:55 PM EST [facility] Parainfluenza Virus 1 Not Detected Not Detected LAB MICROBIOLOGY METHOD 03/10/2024 5:55 PM [facility] Parainfluenza Virus 2 Not Detected Not Detected LAB MICROBIOLOGY METHOD 03/10/2024 5:55 PM [facility] Parainfluenza Virus 3 Not Detected Not Detected LAB MICROBIOLOGY METHOD 03/10/2024 5:55 PM [facility] Parainfluenza Virus 4 Not Detected Not Detected LAB MICROBIOLOGY METHOD 03/10/2024 5:55 PM EST [facility] RSV PCR Not Detected Not Detected LAB MICROBIOLOGY METHOD 03/10/2024 5:55 PM [facility] Human Metapneumovirus A and B Not Detected Not Detected LAB MICROBIOLOGY METHOD 03/10/2024 5:55 PM [facility] Rhinovirus/Entero virus Not Detected Not Detected LAB MICROBIOLOGY METHOD 03/10/2024 5:55 PM [facility] Bordetella pertussis Not Detected Not Detected LAB MICROBIOLOGY METHOD 03/10/2024 5:55 PM [facility] Bordetella parapertussis Not Detected Not Detected LAB MICROBIOLOGY METHOD 03/10/2024 5:55 PM [facility] Mycoplasma pneumo by PCR Not Detected Not Detected LAB MICROBIOLOGY METHOD 03/10/2024 5:55 PM [facility] Chlamydia pneumoniae Not Detected Not Detected LAB MICROBIOLOGY METHOD 03/10/2024 5:55 PM EST [facility] SARS COV-2 Not Detected Not Detected LAB MICROBIOLOGY METHOD 03/10/2024 5:55 PM EST [facility] Swab Both anterior nares / Unknown Non-blood Collection / Unknown 03/10/2024 4:22 PM EST 03/10/2024 4:57 PM EST Narrative [facility] - 03/10/2024 5:55 PM EST Testing was performed using the [employer] Respiratory Pathogen PCR Assay. All results must be correlated with the clinical findings. Results should not be used as the sole basis for diagnosis. False Negative results may occur from the presence of sequence variants in the region targeted by the assay or the presence of inhibitors. Results may be affected by concurrent antiviral/antimicrobial therapy or levels of organisms that are below the limit of detection. Ethel OWEN LAB MICROBIOLOGY - GENERAL OR DERABLES Final Result Performing Organization Address [facility]/ZIP Co de Phone Number [facility] [address] [place] [address], [place] [phone] * Rapid strep A screen (03/10/2024 4:22 PM EST) Strep A Ag Negative Negative, Invalid 03/10/2024 5:16 PM EST [facility] Comment:Refer to Throat Cult ure. Swab Structure of anterior portion of neck / Unknown Non-blood Collection / Unknown 03/10/2024 4:22 PM EST 03/10/2024 4:57 PM EST Ethel OWEN LAB MICROBIOLOGY - GENERAL OR DERABLES Final Result Performing Organization Address [facility]/ZIP Co de Phone Number [facility] [address] [place] [address], [place] [phone] * Culture throat (03/10/2024 4:22 PM EST) Culture, Throat No pathogens isolated. 03/12/2024 1:15 PM EST [facility] Swab Structure of anterior portion of neck / Unknown Non-blood Collection / Unknown 03/10/2024 4:22 PM EST 03/10/2024 4:57 PM EST Ethel OWEN LAB MICROBIOLOGY - GENERAL OR DERABLES Final Result [facility] ([facility] [address] [place] [address], [place] [phone] from Last 3 Months Insurance [facility] Member Subscriber Plan / Payer (Ef fective 2016-Present) Name:Tom Kumar Relation to Subscriber:Self Name:Tom Kumar Payer ID:[id number] Group ID:[id number] Type:Not on file Address: [address] [place] [address] [employer] MEDICARE Member Subscriber Plan / Payer (Ef fective 2016-Present) Name:Tom Kumar Relation to Subscriber:Self Name:Tom Kumar Payer ID:[id number] Group ID:[id number] Type:Not on file Address: [address] [place] [address] Care Teams Infrastructure Manager Relationship Specialty Start Date End Date Physician, No Pcp PCP - General 03/10/24
--- OUTSIDE RECORDS SUMMARY | 2024-04-20 16:01 | XMS_ITS | Clinical Summary ---
Author Organization [facility] Address [address] [place] [address] Care Team Providers Care Airplane Flight Attendant Name Role Phone Unavailable Primary Care Provider Unavailabl e Social History Tobacco Use Types Packs/Day Years Used Date Smoking Tobacco: Never Assessed Sex and Gender Information Value Date Recorded Sex Assigned at Not on file Gender Identity Not on file Sexual Orientation Not on file Plan of Treatment Health Maintenance Due Date Last Done Comments Hepatitis B Vaccines (1 of 3 - 3-dose series) 1965 Hepatitis C Screening 1965 COVID-19 Vaccine (#1) 06/10/1968 Depression Screening 1979 Preventative Health Evaluation 12/10/1985 DTap / Tdap / Td (1 - Tdap) 12/10/1986 Colon Cancer Screening (Colonoscopy) 12/10/2012 Shingrix-Zoster Vaccine (1 of 2) 12/10/2017 Influenza Vaccine (#1) 2023 Pneumococcal Vaccine Aged Out No long er eligible based on patient's age to complete this topic RSV Ped < 20 months Aged Out No longe r eligible based on patient's age to complete this topic
--- OUTSIDE RECORDS SUMMARY | 2024-04-20 16:01 | XMS_ITS | Clinical Summary ---
Author Organization [facility] Address [id number] Care Team Providers Care Rental Car Ferry Driver Name Role Phone DylanbrittJacob NP Primary Care Provider [phone] Source Comments PLEASE NOTE, if this patient is a minor, it may be UNLAWFUL to discuss sensitive information that is contained in these records (such as FAMILY PLANNING, MENTAL HEALTH or SUBSTANCE ABUSE) with the minor patient's parent or other person without the patient's specific authorization.[facility] Allergies Active Allergy Reactions Criticality Noted Date Comments Oxycodone-Acetaminophen Itching 02/06/2016 Medications DULoxetine (CYMBALTA) [address] Martinez ns:Depression, unspecified depression type Take 30 mg by mouth once daily. 1 01/03/2016 Active ibuprofen (ADVIL,MOTRIN) 400 mg tabletIndication s:Chronic midline low back pain with bilateral sciatica Take 1 Tab by mouth 3 (three) times daily as needed for pain. 90 Tab 3 02/06/2016 Active Active Problems Problem Noted Date Diagnosed Date Depression 02/07/2016 Chronic midline low back pain with bilateral sci atica 02/07/2016 Resolved Problems Problem Noted Date Diagnosed Date Resolved Date Chronic midline low back gregory n without sciatica 02/06/2016 02/07/2016 Family History Medical History Relation Name Comments Diabetes Father Diabetes Mother Hypertension Mother Relation Name Status Comments Father Alive Mother Alive Social History Tobacco Use Types Packs/Day Years Used Date Smoking Tobacco: Never Alcohol Use Standard Drinks/Week Comments No 0 (1 standard drink = 0.6 oz pur e alcohol) Social Connections Answer Date Recorded Social Connections and Isolation 0 10/31/2018 Financial Resource Strain Answer Date R ecorded Financial Resource Strain 0 2018 Stress Answer Date Recorded Stress 0 10/31/2018 Physical Activity Answer Date Recorded Physical Activity 0 10/31/2018 Food Insecurity Answer Date Recorded Food 0 10/31/2018 Transportation Needs Answer Date Record ed Transportation 0 10/31/2018 Housing Stability Answer Date Recorded Housing 0 10/31/2018 Safety and Environment Answer Date Rell rded Safety 0 10/31/2018 Utilities Answer Date Recorded Utilities 0 10/31/2018 Employment Answer Date Recorded Employment 0 10/31/2018 Sex and Gender Information Value Date Recorded Sex Assigned at Not on file Legal Sex Male 8:36 AM PDT Gender Identity Not on file Sexual Orientation Not on file Last Filed Vital Signs Vital Sign Reading Time Taken Comments Blood Pressure 124/80 02/06/2016 10:06 AM EST Pulse 64 02/06/2016 10:06 AM EST Temperature 36.8 ??C (98.2 ??F) 02/06/2016 10:[address] Respiratory Rate 16 02/06/2016 10:06 AM EST Oxygen Saturation - - Inhaled Oxygen Concentration - - Weight 92.5 kg (204 lb) 02/06/2016 10:06 AM EST Height 172.1 cm (5' 7.75 ) 02/06/2016 10:[address] Body Mass Index 31.25 02/06/2016 10:06 AM EST Plan of Treatment Not on file Insurance [place] Care Teams Rental Car Ferry Driver Relationship Specialty Start Date End Date Jacob Bourgeois NP [address] [place] [address] PCP - General 01/15/18
--- OUTSIDE RECORDS SUMMARY | 2024-04-20 16:01 | XMS_ITS | Encounter Summary ---
Author Organization [facility] [place] [address] Care Team Providers Care Clinical Application Manager Name Role Phone Physician, No Pcp Primary Care Provider Unavaila ble Reason for Visit * Reason Comments Hyperglycemia Pt brought by ems c/ o increased weakness x3 days. POC 203 for EMS., Pt has blurry vision, unsteady on feet. Encounter Details Date Type Department Care Team (Late st Contact Info) Description 04/04/2024 8:27 PM EST - 04/05/2024 2:[address] [facility] Emergency [address] [place] [address] Discharge Disposition: Home or Self Care Social History Tobacco Use Types Packs/Day Years [...] on file Sexual Orientation Not on file documented as of this encounter Last Filed Vital Signs Vital Sign Reading Time Taken Comments Blood Pressure 132/87 04/04/2024 8:43 PM EST Pulse 90 04/04/2024 8:43 PM EST Temperature 36.6 ??C (97.9 ??F) 04/04/2024 8:43 PM ES T Respiratory Rate 16 04/04/2024 8:43 PM EST Oxygen Saturation 96% 04/04/2024 8:43 PM EST Inhaled Oxygen Concentration - - Weight 104 kg (230 lb) 04/04/2024 8:43 PM EST Height 172.7 cm (5' 8 ) 04/04/2024 8:43 PM EST Body Mass Index 34.97 04/04/2024 8:43 PM EST documented in this encounter Functional Status * Are you deaf or do you have serious difficulty hearing? Answer Date of Assessment Author No 03/10/2024 5:32 PM Darlin Traylor RN * Are you blind or do you have serious difficulty seeing, even when wearing glasses? Answer Date of Assessment Author No 03/10/2024 5:32 PM Darlin Traylor RN * Do you have serious difficulty walking or climbing stairs? Answer Date of Assessment Author No 03/10/2024 5:32 PM Darlin Traylor RN * Do you have serious difficulty dressing or bathing? Answer Date of Assessment Author No 03/10/2024 5:32 PM Darlin Traylor RN * Because of a physical, mental, or emotional condition, do you have serious difficulty doing errandsalone such as visiting the doctor? Answer Date of Assessment Author No 03/10/2024 5:32 PM aDrlin Traylor RN documented as of this encounter Mental Status * Because of a physical, mental, or emotional condition, do you have serious difficulty concentrating, remembering, or making decisions? (5 years old or older) Answer Entry Date Author No 03/10/2024 5:32 PM Darlin Traylor RN documented in this encounter Medications at Time of Discharge atorvastatin (LIPITOR) 10 mg tablet Take 1 tablet (10 mg total) by mouth at bedtime. cholecalciferol (VITAMIN D-3) 25 mcg (1,000 unit) tablet Take 1 tablet (1,000 Units total) by mouth 1 (one) time each day. cyclobenzaprine (FLEXERIL) 10 mg tablet Take 1 tablet (10 mg total) by mouth 3 (three) times a day if needed for muscle spasms. hydroCHLOROthiazi de (HYDRODIURIL) 25 mg tablet Take 1 tablet (25 mg total) by mouth 1 (one) time each day. losartan (COZAAR) 25 mg tablet Take 1 tablet (25 mg total) by mouth 1 (one) time each day. pregabalin (LYRICA) 200 mg capsule Take 1 capsule (200 mg total) by mouth 2 (two) times a day. Max Daily Amount: 400 mg documented as of this encounter Discharge Disposition Disposition Code Departure Means Destination Home or Self Care documented in this encounter Progress Notes * Kathe Salcedo RN - 04/04/2024 8:41 PM EST Pt brought in by EMS c/o weakness, blurry vision for three days. Pt's is a known diabetic. Pt states he takes oral meds for his diabetes. States his blood sugar has been running a little tim for him for last few days. 140's. documented in this encounter Plan of Treatment Not on file documented as of this encounter Procedures Procedure Name Priority Date/Time Associated Diagnosis Comments URINALYSIS WITH REFLEX MICROSCOPIC STAT 04/04/2024 11:47 PM EST URINALYSIS WITH REFLEX MICROSCOPIC STAT 04/04/2024 11:47 PM EST BETA HYDROXYBUTYRATE STAT 04/04/2024 9:58 PM EST CBC WITH AUTO DIFFERENTIAL STAT 04/04/2024 9:58 PM EST CBC AND DIFFERENTIAL STAT 04/04/2024 9:58 PM EST OSMOLALITY STAT 04/04/2024 9:58 PM EST MAGNESIUM STAT 04/04/2024 9:58 PM EST LIPASE STAT 04/04/2024 9:58 PM EST VENOUS BLOOD GAS STAT 04/04/2024 9:58 PM EST COMPREHENSIVE METABOLIC PANEL STAT 04/04/2024 9:58 PM EST POCT GLUCOSE BLOOD Routine 04/04/2024 8: 48 PM EST documented in this encounter Results * Urinalysis with reflex microscopic (04/04/2024 11:47 PM EST) Specific [place] Urine 1.018 1.003 - 1.030 LAB URINALYSIS - AUTOMATED METHOD 04/05/2024 12:16 AM [facility] pH, Urine 6.0 5.0 - 8.0 pH LAB URINALYSIS - AUTOMATED METHOD 04/05/2024 12:16 AM [facility] Leukocytes, Urine Negative Negative LAB URINALYSIS - AUTOMATED METHOD 04/05/2024 12:16 AM [facility] Nitrite, Urine Negative Negative LAB URINALYSIS - AUTOMATED METHOD 04/05/2024 12:16 AM [facility] Protein, Urine Negative <=Trace mg/dL LAB URINALYSIS - AUTOMATED METHOD 04/05/2024 12:16 AM [facility] Glucose, Urine Negative Negative mg/dL LAB URINALYSIS - AUTOMATED METHOD 04/05/2024 12:16 AM [facility] Ketones, Urine Negative Negative mg/dL LAB URINALYSIS - AUTOMATED METHOD 04/05/2024 12:16 AM [facility] Urobilinogen, Urine 1.0 0.2 - 1.0 mg/dL LAB URINALYSIS - AUTOMATED METHOD 04/05/2024 12:16 AM [facility] Bilirubin, Urine Negative Negative LAB URINALYSIS - AUTOMATED METHOD 04/05/2024 12:16 AM [facility] Blood, Urine Negative Negative LAB URINALYSIS - AUTOMATED METHOD 04/05/2024 12:16 AM [facility] Urine Urine specimen obtained by clean catch procedure / Unknown Non-blood Collection / Unknown 04/04/2024 11:47 PM EST 04/05/2024 12:01 AM EST Gordy Moss MD LAB URINE ORDERABLES Final Resu lt [facility] [address] [place] [address], * (ABNORMAL) CBC auto differential (04/04/2024 9:58 PM EST) [facility] WBC 8.3 4.8 - 10.8 K/mcL LAB HEMETOLOGY METHOD 04/04/2024 10:10 PM EST [facility] RBC 5.00 4.50 - 5.50 M/mcL LAB HEMETOLOGY METHOD 04/04/2024 10:10 PM EST [facility] Hemoglobin 15.1 13.5 - 17.5 g/dL LAB HEMETOLOGY METHOD 04/04/2024 10:10 PM EST [facility] Hematocrit 44.1 42.0 - 54.0 % LAB HEMETOLOGY METHOD 04/04/2024 10:10 PM EST [facility] MCV 88.2 79.0 - 98.0 FL LAB HEMETOLOGY METHOD 04/04/2024 10:10 PM EST [facility] MCH 30.2 27.0 - 32.0 pcg LAB HEMETOLOGY METHOD 04/04/2024 10:10 PM EST [facility] MCHC 34.2 32.0 - 37.0 g/dL LAB HEMETOLOGY METHOD 04/04/2024 10:10 PM EST [facility] RDW 13.1 11.0 - 15.0 % LAB HEMETOLOGY METHOD 04/04/2024 10:10 PM EST [facility] Platelets 165 130 - 400 K/mcL LAB HEMETOLOGY METHOD 04/04/2024 10:10 PM EST [facility] MPV 12.1(H) 7.0 - 11.0 FL LAB HEMETOLOGY METHOD 04/04/2024 10:10 PM EST [facility] NRBC 0.0 <1.0 % LAB HEMETOLOGY METHOD 04/04/2024 10:10 PM [facility] NRBC Absolute 0.00 <0.10 K/mcL LAB HEMETOLOGY METHOD 04/04/2024 10:10 PM [facility] Neutrophils Relative 40.9 % LAB HEMETOLOGY METHOD 04/04/2024 10:10 PM [facility] Lymphocytes Relative 45.4 % LAB HEMETOLOGY METHOD 04/04/2024 10:10 PM [facility] Monocytes Relative 11.0 % LAB HEMETOLOGY METHOD 04/04/2024 10:10 PM [facility] Eosinophils Relative 1.9 % LAB HEMETOLOGY METHOD 04/04/2024 10:10 PM [facility] Basophils Relative 0.6 % LAB HEMETOLOGY METHOD 04/04/2024 10:10 PM [facility] Immature Granulocytes Relative 0.2 % LAB HEMETOLOGY METHOD 04/04/2024 10:10 PM [facility] Neutrophils Absolute 3.39 1.50 - 7.00 K/mcL LAB HEMETOLOGY METHOD 04/04/2024 10:10 PM [facility] Lymphocytes Absolute 3.77 1.00 - 5.00 K/mcL LAB HEMETOLOGY METHOD 04/04/2024 10:10 PM [facility] Monocytes Absolute 0.91 0.20 - 1.00 K/mcL LAB HEMETOLOGY METHOD 04/04/2024 10:10 PM [facility] Eosinophils Absolute 0.16 0.00 - 0.50 K/mcL LAB HEMETOLOGY METHOD 04/04/2024 10:10 PM [facility] Basophils Absolute 0.05 0.00 - 0.20 K/mcL LAB HEMETOLOGY METHOD 04/04/2024 10:10 PM [facility] Immature Granulocytes Absolute 0.02 0.00 - 0.03 K/mcL LAB HEMETOLOGY METHOD 04/04/2024 10:10 PM EST [facility] Blood Venous blood specimen / Unknown Venipuncture / Unknown 04/04/2024 9:58 PM EST 04/04/2024 10:03 PM EST Gordy Aleta Moss MD LAB BLOOD ORDERABLES Final Resu lt Performing Organization Address City/[facility]/ZIP Co de Phone Number [facility] [address] [place] [address], [place] [phone] * (ABNORMAL) Venous blood gas (04/04/2024 9:58 PM EST) pH, [place]ha 7.42 7.32 - 7.42 pH 04/04/2024 10:07 PM [facility] pCO2, [place]ha 46 41 - 51 mmHg 04/04/2024 10:07 PM [facility] pO2, [place] 21(L) 25 - 40 mmHg 04/04/2024 10:07 PM [facility] HCO3, Venous 26.5(H) 22.0 - 26.0 mmol/L 04/04/2024 10:07 PM [facility] O2 Sat, [place]ha 39.0 % 04/04/2024 10:07 PM [facility] Base Excess, [place]ha 4.4(H) -2.0 - 2.0 mmol/L 04/04/2024 10:07 PM [facility] Blood Venous blood specimen / Unknown Venipuncture / Unknown 04/04/2024 9:58 PM EST 04/04/2024 10:02 PM EST us Gordykyra Moss MD LAB BLOOD ORDERABLES Final Resu lt [facility] [address] [place] [address], [place] [phone] * Beta hydroxybutyrate (04/04/2024 9:58 PM EST) Beta-Hydroxybu tyrate 1.0 0.2 - 2.8 mg/dL LAB CHEMISTRY METHOD 04/04/2024 10:28 PM EST [facility] Blood Venous blood specimen / Unknown Venipuncture / Unknown 04/04/2024 9:58 PM EST 04/04/2024 10:03 PM EST Gordy Aleta Moss MD LAB BLOOD ORDERABLES Final Resu lt [facility] [address] [place] [address], [place] [phone] * Osmolality (04/04/2024 9:58 PM EST) Pathologist [facility] Osmolality Gomez 296 280 - 300 mOsm/kg LAB CHEMISTRY METHOD 04/04/2024 10:38 PM EST [facility] Blood Venous blood specimen / Unknown Venipuncture / Unknown 04/04/2024 9:58 PM EST 04/04/2024 10:03 PM EST Gordykyra Moss MD LAB BLOOD ORDERABLES Final Resu lt [facility] [address] [place] [address], [place] [phone] * Magnesium (04/04/2024 9:58 PM EST) Pathologist [facility] Magnesium 2.1 1.9 - 2.6 mg/dL LAB CHEMISTRY METHOD 04/04/2024 10:28 PM EST [facility] Blood Venous blood specimen / Unknown Venipuncture / Unknown 04/04/2024 9:58 PM EST 04/04/2024 10:03 PM EST Gordykyra Moss MD LAB BLOOD ORDERABLES Final Resu lt Performing Organization Address [facility]/ZIP Co de Phone Number [facility] [address] [place] [address], [place] [phone] * Lipase (04/04/2024 9:58 PM EST) Lipase 30 13 - 75 unit/L LAB CHEMISTRY METHOD 04/04/2024 10:28 PM [facility] Blood Venous blood specimen / Unknown Venipuncture / Unknown 04/04/2024 9:58 PM EST 04/04/2024 10:03 PM EST Gordy Aleta Moss MD LAB BLOOD ORDERABLES Final Resu lt Performing Organization Address [facility]/ZIP Co de Phone Number [facility] [address] [place] [address], [place] [phone] * (ABNORMAL) Comprehensive metabolic panel (04/04/2024 9:58 PM EST) Pathologist [facility] Sodium 138 133 - 145 mmol/L LAB CHEMISTRY METHOD 04/04/2024 10:29 PM [facility] Potassium 3.6 3.5 - 5.5 mmol/L LAB CHEMISTRY METHOD 04/04/2024 10:29 PM [facility] Chloride 108 96 - 110 mmol/L LAB CHEMISTRY METHOD 04/04/2024 10:29 PM [facility] CO2 28 21 - 32 mmol/L LAB CHEMISTRY METHOD 04/04/2024 10:29 PM [facility] Anion Gap 2(L) 3 - 11 LAB CHEMISTRY METHOD 04/04/2024 10:29 PM [facility] Glucose 156(H) 70 - 100 mg/dL LAB CHEMISTRY METHOD 04/04/2024 10:29 PM [facility] BUN 10 5 - 25 mg/dL LAB CHEMISTRY METHOD 04/04/2024 10:29 PM [facility] Creatinine 0.92 0.70 - 1.30 mg/dL LAB CHEMISTRY METHOD 04/04/2024 10:29 PM [facility] eGFR 98 >=60 mL/min/1. 73m2 LAB CHEMISTRY METHOD 04/04/2024 10:29 PM [facility] Comment:Calculation based on the??Chronic Kidney Disease Epidemiology Collaboration (CKD-EPI) equation refit??without adjustment for race. BUN/Creatinine Ratio 10.9 LAB CHEMISTRY METHOD 04/04/2024 10:29 PM [facility] Calcium 8.9 8.5 - 10.5 mg/dL LAB CHEMISTRY METHOD 04/04/2024 10:29 PM [facility] AST (SGOT) 61(H) 10 - 42 unit/L LAB CHEMISTRY METHOD 04/04/2024 10:29 PM [facility] ALT (SGPT) 123(H) 10 - 60 unit/L LAB CHEMISTRY METHOD 04/04/2024 10:29 PM [facility] Alkaline Phosphatase 90 42 - 121 unit/L LAB CHEMISTRY METHOD 04/04/2024 10:29 PM [facility] Total Protein 6.5 6.0 - 8.0 g/dL LAB CHEMISTRY METHOD 04/04/2024 10:29 PM [facility] Albumin 3.6 3.2 - 5.0 g/dL LAB CHEMISTRY METHOD 04/04/2024 10:29 PM [facility] Total Bilirubin 0.6 0.0 - 1.4 mg/dL LAB CHEMISTRY METHOD 04/04/2024 10:29 PM [facility] Blood Venous blood specimen / Unknown Venipuncture / Unknown 04/04/2024 9:58 PM EST 04/04/2024 10:03 PM EST us Gordykyra Moss MD LAB BLOOD ORDERABLES Final Resu lt [facility] [address] [place] [address], [place] [phone] * (ABNORMAL) POCT Glucose, blood (04/04/2024 8:48 PM EST) [facility] Signature Glucose POCT 145(H) 70 - 100 mg/dL 04/04/2024 8:48 PM EST [facility] Blood Capillary blood specimen / Unknown 04/04/2024 8:48 PM EST 04/04/2024 8:50 PM EST us Generic Provider Poct LAB POINT OF CARE TEST DOCKED DEVICE UNSOLICITED RESULTS Final Result [facility] [address] [place] [address], [place] [phone] documented in this encounter Visit Diagnoses Not on filedocumented in this encounter Care Teams Clinical Application Manager Relationship Specialty Start Date End Date Physician, No Pcp PCP - General 03/10/24 documented as of this encounter
== END 2024-04-20 15:57 | disposition home or self-care (01) ==
PROVIDERS: PCP Internal Medicine; Visit Provider Nurse Practitioner Family
DX: G47.34 Idiopathic sleep related nonobstructive alveolar hypoventilation (principal); R05.9 Cough, unspecified; R06.09 Other forms of dyspnea
CPT/HCPCS: 99204

== ENCOUNTER → 2024-04-20 15:14 | Outpatient (BNVA) | payer OTHER, SELFPAY | PROVIDERS: PCP Internal Medicine; Visit Provider Nurse Practitioner Family | DX: G47.34 Idiopathic sleep related nonobstructive alveolar hypoventilation (principal); R05.9 Cough, unspecified; R06.09 Other forms of dyspnea | CPT/HCPCS: 99202 ==

== ENCOUNTER 2024-04-27 15:17 | Outpatient (AMB) | payer OTHER, SELFPAY ==
--- NOTE | 2024-04-27 15:30 | A.OFFPC_ITS ---
Vital Signs 04/27/24 15:31 Height 5 ft 9 in Weight 236 lb BMI 34.8 BP 126/80 Blood Pressure Location Lt brachial Position Sitting Intake Visit Reasons: Sugar medications Intake Note: Patient here for a follow up Glucose Senior Treasury Analyst Required: No Accompanied by: Self / Same As Patient Allergies lisinopril Allergy (Intermediate, Verified 04/27/24 15:41) Cough acetaminophen [Percocet] Allergy (Mild, Verified 04/27/24 15:41) rash oxycodone [From Percocet] Allergy (Mild, Verified 04/27/24 15:41) rash Medication List - Last Reconciled 04/27/24 by Magali Taveras MD albuterol sulfate 90 mcg/actuation 2 puffs PO Q4-6H PRN alcohol swabs (Alcohol Prep Pads) 1 pad topical DAILY 90 days atorvastatin 10 mg PO BEDTIME 90 days blood pressure monitor (Blood Pressure Kit) As directed blood sugar diagnostic (OneTouch Ultra Test strips) Use 1 test strpi once a day blood-glucose meter (OneTouch UltraMini kit) As directed cholecalciferol (vitamin D3) 25 mcg PO DAILY 90 days cyclobenzaprine 10 mg PO TID PRN 90 days hydrochlorothiazide 25 mg PO DAILY 90 days hydroxyzine pamoate 25 mg PO BID PRN lancets (OneTouch Delica Plus Lancet) Use 1 lancet once a day lancets USe 1 lancet once a day losartan 25 mg PO DAILY 30 days metformin 500 mg PO DAILY 30 days pregabalin 200 mg PO BID 30 days terbinafine HCl 250 mg PO DAILY 90 days Tobacco use date assessed: 04/27/24 Dental Screening Dental Screen Date: 04/27/24 Did you have a dental visit in the last 12 months?: Yes Did you have a dental problem in the last 6 months where you did not have access to dental care?: No Was dental information given to patient?: Patient has dentist HPI HPI Comments History of Present Illness Details The patient is a 58-year-old male presenting with an acute episode of hyperglycemia and hypertension. The patient reported consuming sugar-free ice cream and subsequently experiencing elevated blood glucose levels, reaching 300 mg/dL. The episode was severe enough to require emergency medical services and evaluation at [facility] two weeks ago, though the patient ultimately left before obtaining all test results. The Hemoglobin A1c level was measured at 6.5%, consistent with past results. The patient associated this spike with dietary intake and noted recent increased blood pressure, self-reported as having been at 70/unknown. Current medications include lisinopril, atorvastatin, metformin, losartan, vitamins, Flexeril, hydroxyzine, and medication use for neuropathic pain. The patient also mentioned allergy-induced rash related to specific medications, specifically Percocet. The patient has not completed terbinafine treatment for a fungal infection. He has noted anxiety-related symptoms following the acute episode, and a scheduled follow-up on June 24 for further evaluation and laboratory testing was discussed. He has low vitamin-D and is currently taking supplements for it. Also has lumbar degenerative disc disease on pregabalin. [facility] Medical History Essential hypertension Postlaminectomy syndrome Abnormal barium swallow Dyslipidemia Transaminitis Right knee pain Obese Lumbar degenerative disc disease Surgical History History of colonoscopy Fusion of lumbar spine History of fracture of left ankle History of lumbar fusion History of arthroscopy of left knee Hx of arthroscopy of right knee Family History Father Diabetes Mother Diabetes Hypertension Asthma Social History Housing: House Alcohol intake: former Patient Tobacco Use Status: Never used Tobacco e-Cigarette/Vaping Use: Never Used Second Hand Smoke Exposure: No service: No Current occupational status: employed Current occupational exposures/hazards: No Cognitive needs: No Hearing needs: No Vision needs: No Questionnaire PHQ-9 Over the last 2 weeks, how often have you been bothered by any of the following problems? 1. Little interest or pleasure in doing things: not at all 2. Feeling down, depressed, or hopeless: not at all 3. Trouble falling or staying asleep, or sleeping too much: not at all 4. Feeling tired or having little energy: not at all 5. Poor appetite or overeating: not at all 6. Feeling bad about yourself - or that you are a failure or have let yourself or your family down: not at all 7. Trouble concentrating on things, such as reading the newspaper or watching television: not at all 8. Moving or speaking so slowly that other people could have noticed. Or the opposite - being so fidgety or restless that you have been moving around a lot more than usual: not at all 9. Thoughts that you would be better off or of hurting yourself in some way: not at all Total score: 0 Depression Screening Interpretation: Negative Depression Screening Done: Yes 66516 - PHQ-9 Billing: Yes Source: Developed by Drs. Leandro Teague, Veronique Carter, John Cosme and colleagues, with an educational rangel from [employer]. Thrive Questionnaire Date Thrive assessed: 04/27/24 I am a: Patient What is your living situation today?: I have a steady place to live Within the past 12 months, did the food you bought not last and you didn't have the money to get more?: Never true Within the past 12 months, did you worry whether your food would run out before you got money to buy more?: Never true Do you have trouble paying for medicines?: No Do you have trouble getting transportation to medical appointments?: No Do you have trouble paying your heating and electricity bill?: No Do you have trouble taking care of your child, family member or friend?: No Do you have trouble with day-to-day activities such as bathing, preparing meals, shopping, managing finances, etc.?: No Are you currently unemployed and looking for a job?: No Are you interested in more education?: No Please select the resources that you would like help with: None Currently or been in a relationship where the following occur: No concerns reported THRIVE Score: 0 AUDIT C Alcohol Use Questionnaire (AUDIT-C) 1. How often do you have a drink containing alcohol?: Never Total Score: 0 Score Reviewed/Action Taken: No BILL-7 AMB Questionnaire BILL-7 Date BILL - 7 assessed: 04/27/24 Feeling nervous, anxious, or on edge: 0 = Not at all Not being able to stop or control worryin = Not at all Worrying too much about different things: 0 = Not at all Trouble relaxin = Not at all Being so restless that it is hard to sit still: 0 = Not at all Becoming easily annoyed or irritable: 0 = Not at all Feeling afraid as if something awful might happen: 0 = Not at all Total BILL-7 score (0-4 normal; 5-9 mild; 10-14 moderate; 15-21 severe): 0 Source: Developed by Drs. Leandro Teague, Veronique Carter, John Cosme and colleagues, with an educational rangel from [employer]. BILL-7 Assessment Billing BILL-7 Assessment Tool: BILL-7 Assessment 51466 Review of Systems Const All systems reviewed & are unremarkable except as noted in HPI and below Card Denies chest pain at rest, Denies chest pain with activity, Denies edema, Denies irregular heart rhythm, Denies claudication, Denies dyspnea, Denies dyspnea on exertion, Denies orthopnea, Denies paroxysmal nocturnal dyspnea and Denies slow heart rate Resp Denies cough, Denies dyspnea and Denies dyspnea on exertion Physical exam (Primary Care) Vital Signs: Last Vital Signs BP 126/80 04/27/24 15:31 BMI result Body Mass Index 34.8 Tobacco/Smoking Status: Tobacco use Status Tobacco use date assessed 04/27/24 04/27/24 15:39 Patient Tobacco Use Status Never used Tobacco 04/27/24 15:31 e-Cigarette/Vaping Use Never Used 04/27/24 15:31 PHQ-9: PHQ-9 Score PHQ-9: Total score 0 04/27/24 15:39 Depression Screening Interpretation: Negative Thrive Assessment: Date of Thrive Assessment Date Thrive assessed 04/27/24 04/27/24 15:31 Currently or been in a relationship where the following occur: No concerns reported Resp Effort & Inspection: normal respiratory effort Auscultation: clear to auscultation bilaterally Cardio Jugular venous distension: no JVD Rate: regular rate Rhythm: regular rhythm Heart sounds: S1 normal heart sound present and S2 normal heart sound present Extrem General: Yes full ROM Results AMB Hemoglobin A1c AMB Hemoglobin A1c 6.5 % Last Edit by KELLIE Sanchez on 04/27/24 15:4 3 Coding Level of Care Code Est Pt Level 4 (66496) Complex EM visit Add On G2211 Diagnoses Type 2 diabetes mellitus without complication, without long-term current use of insulin E11.9 Diabetes mellitus type: type 2 Diabetes mellitus prison insulin use: without terminal gauger supervisor use Diabetes mellitus complication status: without complication Low vitamin D level R79.89 Hyperlipidemia LDL goal <70 E78.5 Lumbar degenerative disc disease M51.36 Essential hypertension I10 Additional Codes PHQ-9 - 92648 - PHQ-9 Billing: Yes ([id number]) BILL-7 Assessment Billing - BILL-7 Assessment Tool: BILL-7 Assessment 16865 ([id number]) Time Spent (min) 23 Assessment & Plan Assessment & Plan (1) Diabetes mellitus: Code(s): E11.9 - Type 2 diabetes mellitus without complications Category: Medical Qualifiers: Diabetes mellitus type: type 2 Diabetes mellitus prison insulin use: without terminal gauger supervisor use Diabetes mellitus complication status: without complica tion Qualified Code(s): E11.9 - Type 2 diabetes mellitus without complications (2) Low vitamin D level: Code(s): R79.89 - Other specified abnormal findings of blood chemistry Category: Medical (3) Hyperlipidemia LDL goal <70: Code(s): E78.5 - Hyperlipidemia, unspecified Category: Medical (4) Lumbar degenerative disc disease: Code(s): M51.36 - Other intervertebral disc degeneration, lumbar region Category: Medical (5) Essential hypertension: Code(s): I10 - Essential (primary) hypertension Category: Medical Plan - Continue monitoring blood glucose levels closely, especially after dietary mark nges. - Maintain current antihypertensive regimen and review in follow-up for ongoing blood pressure management. - Recommend resuming terbinafine treatment for the fungal infection, given unresolved status. - Advise strategies to minimize anxiety associated with acute episodes, such as relaxation techniques. Patient was informed and verbally consented to the use of an ambient scribe for clinic note documentation during this visit. During the visit, I reviewed the patient's recent acute episode of hyperglycemia suspected to be associated with sugar-free ice cream consumption. I discussed th e importance of strict adherence to the diabetic regimen, including monitoring dietary intake, to prevent further spikes. We reviewed medication management, emphasizing compliance and the potential need for adjustment in the future. Scheduled follow-up labs were discussed for the next visit on June 24 to reassess and adjust treatment as necessary. We also touched on lifestyle modifications to manage situations that provoke anxiety, highlighting the importance of mental health care as part of chronic disease management. Orders: Orders Lipid Panel Today E78.5 - Hyperlipidemia, unspecified AMB Hemoglobin A1c Today E11.9 - Type 2 diabetes mellitus without complications Vitamin D 25-OH Total Today E55.9 - Vitamin D deficiency, unspecified Microalbumin, Random (w Creat) Today R80.9 - Proteinuria, unspecified Comprehensive [place]. Panel Fast Today E11.9 - Type 2 diabetes mellitus without complications Patient Instructions: - Monitor blood glucose levels before and after meals, especially when introducing new foods or drinks. - Continue current blood pressure medication regimen and lifestyle modifications for optimal blood pressure control. - Avoid consuming sugar-free or other potentially misleading labeled foods without further consultation. - Follow up as scheduled on June 24 for lab work and comprehensive physician assessment. - Practice stress-relief techniques to manage anxiety symptoms as needed.
[2024-04-27 15:31] VITALS: BP 126/80; BMI 34.8
--- OUTSIDE RECORDS SUMMARY | 2024-04-27 16:10 | XMS_ITS | Encounter Summary ---
Author Organization [facility] [place] [address] Care Team Providers Care Trimmer And Reinforcer Name Role Phone Physician, No Pcp Primary Care Provider Unavaila ble Reason for Visit * Reason Comments Hyperglycemia Pt brought by ems c/ o increased weakness x3 days. POC 203 for EMS., Pt has blurry vision, unsteady on feet. Encounter Details Date Type Department Care Team (Late st Contact Info) Description 04/04/2024 8:27 PM EST - 04/05/2024 2:25 AM EST Emergency [facility] Emergency [address] [place] [address] Discharge Disposition: Home or Self [...] 03/10/2024 5:32 PM Darlin Traylor RN documented as of this encounter [...] reflex microscopic (04/04/2024 11:47 PM EST) Specific [place] Urine 1.018 1.003 - 1.030 LAB URINALYSIS - AUTOMATED METHOD 04/05/2024 12:16 AM [facility] pH, Urine 6.0 5.0 - 8.0 pH LAB URINALYSIS - AUTOMATED METHOD 04/05/2024 12:16 AM [facility] Leukocytes, Urine Negative Negative LAB URINALYSIS - AUTOMATED METHOD 04/05/2024 12:16 AM [facility] Nitrite, Urine Negative Negative LAB URINALYSIS - AUTOMATED METHOD 04/05/2024 12:16 AM [facility] Protein, Urine Negative <=Trace mg/dL LAB URINALYSIS - AUTOMATED METHOD 04/05/2024 12:16 AM [facility] Glucose, Urine Negative Negative mg/dL LAB URINALYSIS - AUTOMATED METHOD 04/05/2024 12:16 AM [facility] Ketones, Urine Negative Negative mg/dL LAB URINALYSIS - AUTOMATED METHOD 04/05/2024 12:16 AM [facility] Urobilinogen, Urine 1.0 0.2 - 1.0 mg/dL LAB URINALYSIS - AUTOMATED METHOD 04/05/2024 12:16 AM [facility] Bilirubin, Urine Negative Negative LAB URINALYSIS - AUTOMATED METHOD 04/05/2024 12:16 AM [facility] Blood, Urine Negative Negative LAB URINALYSIS - AUTOMATED METHOD 04/05/2024 12:16 AM [facility] Urine Urine specimen obtained by clean catch procedure / Unknown Non-blood Collection / Unknown 04/04/2024 11:47 PM EST 04/05/2024 12:01 AM EST Gordy Moss MD LAB URINE ORDERABLES Final Resu lt [facility] [address] [place] [address], * (ABNORMAL) CBC auto differential (04/04/2024 9:58 PM EST) [facility] WBC 8.3 4.8 - 10.8 K/mcL LAB HEMETOLOGY METHOD 04/04/2024 10:10 PM EST [facility] RBC 5.00 4.50 - 5.50 M/mcL LAB HEMETOLOGY METHOD 04/04/2024 10:10 PM EST [facility] Hemoglobin 15.1 13.5 - 17.5 g/dL LAB HEMETOLOGY METHOD 04/04/2024 10:10 PM EST [facility] Hematocrit 44.1 42.0 - 54.0 % LAB HEMETOLOGY METHOD 04/04/2024 10:10 PM EST [facility] MCV 88.2 79.0 - 98.0 FL LAB HEMETOLOGY METHOD 04/04/2024 10:10 PM EST [facility] MCH 30.2 27.0 - 32.0 pcg LAB HEMETOLOGY METHOD 04/04/2024 10:10 PM EST [facility] MCHC 34.2 32.0 - 37.0 g/dL LAB HEMETOLOGY METHOD 04/04/2024 10:10 PM EST [facility] RDW 13.1 11.0 - 15.0 % LAB HEMETOLOGY METHOD 04/04/2024 10:10 PM EST [facility] Platelets 165 130 - 400 K/mcL LAB HEMETOLOGY METHOD 04/04/2024 10:10 PM EST [facility] MPV 12.1(H) 7.0 - 11.0 FL LAB HEMETOLOGY METHOD 04/04/2024 10:10 PM EST [facility] NRBC 0.0 <1.0 % LAB HEMETOLOGY METHOD 04/04/2024 10:10 PM [facility] NRBC Absolute 0.00 <0.10 K/mcL LAB HEMETOLOGY METHOD 04/04/2024 10:10 PM [facility] Neutrophils Relative 40.9 % LAB HEMETOLOGY METHOD 04/04/2024 10:10 PM [facility] Lymphocytes Relative 45.4 % LAB HEMETOLOGY METHOD 04/04/2024 10:10 PM [facility] Monocytes Relative 11.0 % LAB HEMETOLOGY METHOD 04/04/2024 10:10 PM [facility] Eosinophils Relative 1.9 % LAB HEMETOLOGY METHOD 04/04/2024 10:10 PM [facility] Basophils Relative 0.6 % LAB HEMETOLOGY METHOD 04/04/2024 10:10 PM [facility] Immature Granulocytes Relative 0.2 % LAB HEMETOLOGY METHOD 04/04/2024 10:10 PM [facility] Neutrophils Absolute 3.39 1.50 - 7.00 K/mcL LAB HEMETOLOGY METHOD 04/04/2024 10:10 PM [facility] Lymphocytes Absolute 3.77 1.00 - 5.00 K/mcL LAB HEMETOLOGY METHOD 04/04/2024 10:10 PM [facility] Monocytes Absolute 0.91 0.20 - 1.00 K/mcL LAB HEMETOLOGY METHOD 04/04/2024 10:10 PM [facility] Eosinophils Absolute 0.16 0.00 - 0.50 K/mcL LAB HEMETOLOGY METHOD 04/04/2024 10:10 PM [facility] Basophils Absolute 0.05 0.00 - 0.20 K/mcL LAB HEMETOLOGY METHOD 04/04/2024 10:10 PM [facility] Immature Granulocytes Absolute 0.02 0.00 - 0.03 K/mcL LAB HEMETOLOGY METHOD 04/04/2024 10:10 PM EST [facility] Blood Venous blood specimen / Unknown Venipuncture / Unknown 04/04/2024 9:58 PM EST 04/04/2024 10:03 PM EST Gordy Aleta Moss MD LAB BLOOD ORDERABLES Final Resu lt Performing Organization Address City/[facility]/ZIP Co de Phone Number [facility] [address] [place] [address], [place] [phone] * (ABNORMAL) Venous blood gas (04/04/2024 9:58 PM EST) pH, [place] 7.42 7.32 - 7.42 pH 04/04/2024 10:07 PM [facility] pCO2, [place] 46 41 - 51 mmHg 04/04/2024 10:07 PM [facility] pO2, [place] 21(L) 25 - 40 mmHg 04/04/2024 10:07 PM [facility] HCO3, Venous 26.5(H) 22.0 - 26.0 mmol/L 04/04/2024 10:07 PM [facility] O2 Sat, [place] 39.0 % 04/04/2024 10:07 PM [facility] Base Excess, [place] 4.4(H) -2.0 - 2.0 mmol/L 04/04/2024 10:07 PM [facility] Blood Venous blood specimen / Unknown Venipuncture / Unknown 04/04/2024 9:58 PM EST 04/04/2024 10:02 PM EST us Gordykyra Moss MD LAB BLOOD ORDERABLES Final Resu lt [facility] [address] [place] [address], [place] [phone] * Beta hydroxybutyrate (04/04/2024 9:58 PM EST) Beta-Hydroxybu tyrate 1.0 0.2 - 2.8 mg/dL LAB CHEMISTRY METHOD 04/04/2024 10:28 PM EST [facility] Blood Venous blood specimen / Unknown Venipuncture / Unknown 04/04/2024 9:58 PM EST 04/04/2024 10:03 PM EST Gordy Aleta Moss MD LAB BLOOD ORDERABLES Final Resu lt [facility] [address] [place] [address], [place] [phone] * Osmolality (04/04/2024 9:58 PM EST) Pathologist [facility] Osmolality Gomez 296 280 - 300 mOsm/kg LAB CHEMISTRY METHOD 04/04/2024 10:38 PM EST [facility] Blood Venous blood specimen / Unknown Venipuncture / Unknown 04/04/2024 9:58 PM EST 04/04/2024 10:03 PM EST Gordykyra Moss MD LAB BLOOD ORDERABLES Final Resu lt [facility] [address] [place] [address], [place] [phone] * Magnesium (04/04/2024 9:58 PM EST) Pathologist [facility] Magnesium 2.1 1.9 - 2.6 mg/dL LAB CHEMISTRY METHOD 04/04/2024 10:28 PM EST [facility] Blood Venous blood specimen / Unknown Venipuncture / Unknown 04/04/2024 9:58 PM EST 04/04/2024 10:03 PM EST Gordykyra Moss MD LAB BLOOD ORDERABLES Final Resu lt Performing Organization Address [facility]/ZIP Co de Phone Number [facility] [address] [place] [address], [place] [phone] * Lipase (04/04/2024 9:58 PM EST) Lipase 30 13 - 75 unit/L LAB CHEMISTRY METHOD 04/04/2024 10:28 PM [facility] Blood Venous blood specimen / Unknown Venipuncture / Unknown 04/04/2024 9:58 PM EST 04/04/2024 10:03 PM EST Gordy Aleta Moss MD LAB BLOOD ORDERABLES Final Resu lt Performing Organization Address [facility]/ZIP Co de Phone Number [facility] [address] [place] [address], [place] [phone] * (ABNORMAL) Comprehensive metabolic panel (04/04/2024 9:58 PM EST) Pathologist [facility] Sodium 138 133 - 145 mmol/L LAB CHEMISTRY METHOD 04/04/2024 10:29 PM [facility] Potassium 3.6 3.5 - 5.5 mmol/L LAB CHEMISTRY METHOD 04/04/2024 10:29 PM [facility] Chloride 108 96 - 110 mmol/L LAB CHEMISTRY METHOD 04/04/2024 10:29 PM [facility] CO2 28 21 - 32 mmol/L LAB CHEMISTRY METHOD 04/04/2024 10:29 PM [facility] Anion Gap 2(L) 3 - 11 LAB CHEMISTRY METHOD 04/04/2024 10:29 PM [facility] Glucose 156(H) 70 - 100 mg/dL LAB CHEMISTRY METHOD 04/04/2024 10:29 PM [facility] BUN 10 5 - 25 mg/dL LAB CHEMISTRY METHOD 04/04/2024 10:29 PM [facility] Creatinine 0.92 0.70 - 1.30 mg/dL LAB CHEMISTRY METHOD 04/04/2024 10:29 PM [facility] eGFR 98 >=60 mL/min/1. 73m2 LAB CHEMISTRY METHOD 04/04/2024 10:29 PM [facility] Comment:Calculation based on the??Chronic Kidney Disease Epidemiology Collaboration (CKD-EPI) equation refit??without adjustment for race. BUN/Creatinine Ratio 10.9 LAB CHEMISTRY METHOD 04/04/2024 10:29 PM [facility] Calcium 8.9 8.5 - 10.5 mg/dL LAB CHEMISTRY METHOD 04/04/2024 10:29 PM [facility] AST (SGOT) 61(H) 10 - 42 unit/L LAB CHEMISTRY METHOD 04/04/2024 10:29 PM [facility] ALT (SGPT) 123(H) 10 - 60 unit/L LAB CHEMISTRY METHOD 04/04/2024 10:29 PM [facility] Alkaline Phosphatase 90 42 - 121 unit/L LAB CHEMISTRY METHOD 04/04/2024 10:29 PM [facility] Total Protein 6.5 6.0 - 8.0 g/dL LAB CHEMISTRY METHOD 04/04/2024 10:29 PM [facility] Albumin 3.6 3.2 - 5.0 g/dL LAB CHEMISTRY METHOD 04/04/2024 10:29 PM [facility] Total Bilirubin 0.6 0.0 - 1.4 mg/dL LAB CHEMISTRY METHOD 04/04/2024 10:29 PM [facility] Blood Venous blood specimen / Unknown Venipuncture / Unknown 04/04/2024 9:58 PM EST 04/04/2024 10:03 PM EST us Gordykyra Moss MD LAB BLOOD ORDERABLES Final Resu lt [facility] [address] [place] [address], [place] [phone] * (ABNORMAL) POCT Glucose, blood (04/04/2024 8:48 PM EST) [facility] Signature Glucose POCT 145(H) 70 - 100 mg/dL 04/04/2024 8:48 PM EST [facility] Blood Capillary blood specimen / Unknown 04/04/2024 8:48 PM EST 04/04/2024 8:50 PM EST us Generic Provider Poct LAB POINT OF CARE TEST DOCKED DEVICE UNSOLICITED RESULTS Final Result [facility] [address] [place] [address], [place] [phone] documented in this encounter Visit Diagnoses Not on filedocumented in this encounter Care Teams Trimmer And Reinforcer Relationship Specialty Start Date End Date Physician, No Pcp PCP - General 03/10/24 documented as of this encounter
--- OUTSIDE RECORDS SUMMARY | 2024-04-27 16:10 | XMS_ITS | Clinical Summary ---
Author Organization [facility] Address [address] [place] [address] Care Team Providers Care Physical Science Aide Name Role Phone DylanbrittJacob NP Primary Care Provider [phone] Source Comments PLEASE NOTE, if this patient [...] Plan of Treatment [place] on file [place] Care Teams Physical Science Aide Relationship Specialty Start Date End Date Jacob Bourgeois NP [address] [place] [address] PCP - General 01/15/18
--- OUTSIDE RECORDS SUMMARY | 2024-04-27 16:10 | XMS_ITS | Clinical Summary ---
Author Organization [facility] Address [address] [place] [address] Care Team Providers Care Commissary Superintendent Name Role Phone Unavailable Primary Care Provider [...]
--- OUTSIDE RECORDS SUMMARY | 2024-04-27 16:10 | XMS_ITS | Clinical Summary ---
Author Organization [facility] Address [address] [place] [address] Phone Care Team Providers Care Diet Counselor Name Role Phone Physician, No Pcp Primary [...] EST - 04/05/2024 2:25 AM EST Emergency [facility] Emergency [address] [place] [address] Discharge Disposition: Home or Self Care 03/10/2024 2:11 PM EST - 03/10/2024 6:35 PM EST Emergency [facility] Emergency [address] [place] [address] Acute pharyngitis, unspecified etiology (Primary [...] of 3 - 19+ 3-dose series) 12/10/1986 Pneumococcal Vaccine: 50+ Years (1 of 2 - PCV) 12/10/1986 Pneumococcal Vaccine: Pediatrics (0 to 5 Years) and At-Risk Patients (6 to 64 Years) (1 of 2 - PCV) 12/10/1986 Zoster Vaccines (1 of 2) 12/10/2017 Cholesterol Screening (Lipid Panel) 02/10/2022 Colorectal Cancer Screening: Colonoscopy 02/10/2022 Depression Screening 02/10/2022 HIV Screening 02/10/2022 Hepatitis C Screening 02/10/2022 Medicare Annual Wellness Visit 02/10/2022 Social Influencers of Health Screening 02/10/2022 [...] patient's age to complete this topic Meningococcal B Vacine Aged Out No lo nger eligible based on patient's age to complete [...] reflex microscopic (04/04/2024 11:47 PM EST) Specific [place] Urine 1.018 1.003 - 1.030 LAB URINALYSIS - AUTOMATED METHOD 04/05/2024 12:16 AM [facility] pH, Urine 6.0 5.0 - 8.0 pH LAB URINALYSIS - AUTOMATED METHOD 04/05/2024 12:16 AM [facility] Leukocytes, Urine Negative Negative LAB URINALYSIS - AUTOMATED METHOD 04/05/2024 12:16 AM [facility] Nitrite, Urine Negative Negative LAB URINALYSIS - AUTOMATED METHOD 04/05/2024 12:16 AM [facility] Protein, Urine Negative <=Trace mg/dL LAB URINALYSIS - AUTOMATED METHOD 04/05/2024 12:16 AM [facility] Glucose, Urine Negative Negative mg/dL LAB URINALYSIS - AUTOMATED METHOD 04/05/2024 12:16 AM [facility] Ketones, Urine Negative Negative mg/dL LAB URINALYSIS - AUTOMATED METHOD 04/05/2024 12:16 AM [facility] Urobilinogen, Urine 1.0 0.2 - 1.0 mg/dL LAB URINALYSIS - AUTOMATED METHOD 04/05/2024 12:16 AM [facility] Bilirubin, Urine Negative Negative LAB URINALYSIS - AUTOMATED METHOD 04/05/2024 12:16 AM [facility] Blood, Urine Negative Negative LAB URINALYSIS - AUTOMATED METHOD 04/05/2024 12:16 AM [facility] Urine Urine specimen obtained by clean catch procedure / Unknown Non-blood Collection / Unknown 04/04/2024 11:47 PM EST 04/05/2024 12:01 AM EST us Gordy Moss MD LAB URINE ORDERABLES Final Resu lt Performing Organization Address [facility]/ZIP Co de Phone Number [facility] [address] [place] [address], * Beta hydroxybutyrate (04/04/2024 9:58 PM EST) Beta-Hydroxybu tyrate 1.0 0.2 - 2.8 mg/dL LAB CHEMISTRY METHOD 04/04/2024 10:28 PM EST [facility] Blood Venous blood specimen / Unknown Venipuncture / Unknown 04/04/2024 9:58 PM EST 04/04/2024 10:03 PM EST us Gordy Moss MD LAB BLOOD ORDERABLES Final Resu lt [facility] [address] [place] [address], [place] [phone] * (ABNORMAL) CBC auto differential (04/04/2024 9:58 PM EST) WBC 8.3 4.8 - 10.8 K/mcL LAB HEMETOLOGY METHOD 04/04/2024 10:10 PM EST [facility] RBC 5.00 4.50 - 5.50 M/mcL LAB HEMETOLOGY METHOD 04/04/2024 10:10 PM [facility] Hemoglobin 15.1 13.5 - 17.5 g/dL LAB HEMETOLOGY METHOD 04/04/2024 10:10 PM [facility] Hematocrit 44.1 42.0 - 54.0 % LAB HEMETOLOGY METHOD 04/04/2024 10:10 PM [facility] MCV 88.2 79.0 - 98.0 FL LAB HEMETOLOGY METHOD 04/04/2024 10:10 PM [facility] MCH 30.2 27.0 - 32.0 pcg LAB HEMETOLOGY METHOD 04/04/2024 10:10 PM [facility] MCHC 34.2 32.0 - 37.0 g/dL LAB HEMETOLOGY METHOD 04/04/2024 10:10 PM [facility] RDW 13.1 11.0 - 15.0 % LAB HEMETOLOGY METHOD 04/04/2024 10:10 PM [facility] Platelets 165 130 - 400 K/mcL LAB HEMETOLOGY METHOD 04/04/2024 10:10 PM [facility] MPV 12.1(H) 7.0 - 11.0 FL LAB HEMETOLOGY METHOD 04/04/2024 10:10 PM [facility] NRBC 0.0 <1.0 % LAB HEMETOLOGY METHOD 04/04/2024 10:10 PM [facility] NRBC Absolute 0.00 <0.10 K/mcL LAB HEMETOLOGY METHOD 04/04/2024 10:10 PM [facility] Neutrophils Relative 40.9 % LAB HEMETOLOGY METHOD 04/04/2024 10:10 PM [facility] Lymphocytes Relative 45.4 % LAB HEMETOLOGY METHOD 04/04/2024 10:10 PM EST [facility] Monocytes Relative 11.0 % LAB HEMETOLOGY METHOD 04/04/2024 10:10 PM EST [facility] Eosinophils Relative 1.9 % LAB HEMETOLOGY METHOD 04/04/2024 10:10 PM [facility] Basophils Relative 0.6 % LAB HEMETOLOGY METHOD 04/04/2024 10:10 PM EST [facility] Immature Granulocytes Relative 0.2 % LAB HEMETOLOGY METHOD 04/04/2024 10:10 PM [facility] Neutrophils Absolute 3.39 1.50 - 7.00 K/mcL LAB HEMETOLOGY METHOD 04/04/2024 10:10 PM [facility] Lymphocytes Absolute 3.77 1.00 - 5.00 K/mcL LAB HEMETOLOGY METHOD 04/04/2024 10:10 PM EST [facility] Monocytes Absolute 0.91 0.20 - 1.00 K/mcL LAB HEMETOLOGY METHOD 04/04/2024 10:10 PM [facility] Eosinophils Absolute 0.16 0.00 - 0.50 K/mcL LAB HEMETOLOGY METHOD 04/04/2024 10:10 PM [facility] Basophils Absolute 0.05 0.00 - 0.20 K/mcL LAB HEMETOLOGY METHOD 04/04/2024 10:10 PM EST [facility] Immature Granulocytes Absolute 0.02 0.00 - 0.03 K/mcL LAB HEMETOLOGY METHOD 04/04/2024 10:10 PM [facility] Blood Venous blood specimen / Unknown Venipuncture / Unknown 04/04/2024 9:58 PM EST 04/04/2024 10:03 PM EST us Gordy Aleta Moss MD LAB BLOOD ORDERABLES Final Resu lt [facility] [address] [place] [address], * Osmolality (04/04/2024 9:58 PM EST) Pathologist [facility] Osmolality Gomez 296 280 - 300 mOsm/kg LAB CHEMISTRY METHOD 04/04/2024 10:38 PM EST [facility] Blood Venous blood specimen / Unknown Venipuncture / Unknown 04/04/2024 9:58 PM EST 04/04/2024 10:03 PM EST Gordy Aleta Moss MD LAB BLOOD ORDERABLES Final Resu lt [facility] [address] [place] [address], * Magnesium (04/04/2024 9:58 PM EST) [facility] Magnesium 2.1 1.9 - 2.6 mg/dL LAB CHEMISTRY METHOD 04/04/2024 10:28 PM EST [facility] Blood Venous blood specimen / Unknown Venipuncture / Unknown 04/04/2024 9:58 PM EST 04/04/2024 10:03 PM EST Gordykyra Moss MD LAB BLOOD ORDERABLES Final Resu lt [facility] [address] [place] [address], * Lipase (04/04/2024 9:58 PM EST) [facility] Lipase 30 13 - 75 unit/L LAB CHEMISTRY METHOD 04/04/2024 10:28 PM EST [facility] Blood Venous blood specimen / Unknown Venipuncture / Unknown 04/04/2024 9:58 PM EST 04/04/2024 10:03 PM EST Gordy Moss MD LAB BLOOD ORDERABLES Final Resu lt Performing Organization Address [facility]/ZIP Co de Phone Number [facility] [address] [place] [address], * (ABNORMAL) Venous blood gas (04/04/2024 9:58 PM EST) pH, Mustapha 7.42 7.32 - 7.42 pH 04/04/2024 10:07 PM [facility] pCO2, Mustapha 46 41 - 51 mmHg 04/04/2024 10:07 PM [facility] pO2, Mustapha 21(L) 25 - 40 mmHg 04/04/2024 10:07 PM [facility] HCO3, Venous 26.5(H) 22.0 - 26.0 mmol/L 04/04/2024 10:07 PM [facility] O2 Sat, Mustapha 39.0 % 04/04/2024 10:07 PM [facility] Base Excess, Mustapha 4.4(H) -2.0 - 2.0 mmol/L 04/04/2024 10:07 PM [facility] Blood Venous blood specimen / Unknown Venipuncture / Unknown 04/04/2024 9:58 PM EST 04/04/2024 10:02 PM EST Gordykyra Moss MD LAB BLOOD ORDERABLES Final Resu lt [facility] [address] [place] [address], [place] [phone] * (ABNORMAL) Comprehensive metabolic panel (04/04/2024 9:58 PM EST) Sodium 138 133 - 145 mmol/L LAB CHEMISTRY METHOD 04/04/2024 10:29 PM EST [facility] Potassium 3.6 3.5 - 5.5 mmol/L LAB CHEMISTRY METHOD 04/04/2024 10:29 PM [facility] Chloride 108 96 - 110 mmol/L LAB CHEMISTRY METHOD 04/04/2024 10:29 PM [facility] CO2 28 21 - 32 mmol/L LAB CHEMISTRY METHOD 04/04/2024 10:29 PM [facility] Anion Gap 2(L) 3 - 11 LAB CHEMISTRY METHOD 04/04/2024 10:29 PM [facility] Glucose 156(H) 70 - 100 mg/dL LAB CHEMISTRY METHOD 04/04/2024 10:29 PM [facility] BUN 10 5 - 25 mg/dL LAB CHEMISTRY METHOD 04/04/2024 10:29 PM [facility] Creatinine 0.92 0.70 - 1.30 mg/dL LAB CHEMISTRY METHOD 04/04/2024 10:29 PM [facility] eGFR 98 >=60 mL/min/1. 73m2 LAB CHEMISTRY METHOD 04/04/2024 10:29 PM [facility] Comment:Calculation based on the??Chronic Kidney Disease Epidemiology Collaboration (CKD-EPI) equation refit??without adjustment for race. BUN/Creatinine Ratio 10.9 LAB CHEMISTRY METHOD 04/04/2024 10:29 PM [facility] Calcium 8.9 8.5 - 10.5 mg/dL LAB CHEMISTRY METHOD 04/04/2024 10:29 PM [facility] AST (SGOT) 61(H) 10 - 42 unit/L LAB CHEMISTRY METHOD 04/04/2024 10:29 PM [facility] ALT (SGPT) 123(H) 10 - 60 unit/L LAB CHEMISTRY METHOD 04/04/2024 10:29 PM [facility] Alkaline Phosphatase 90 42 - 121 unit/L LAB CHEMISTRY METHOD 04/04/2024 10:29 PM [facility] Total Protein 6.5 6.0 - 8.0 g/dL LAB CHEMISTRY METHOD 04/04/2024 10:29 PM EST [facility] Albumin 3.6 3.2 - 5.0 g/dL LAB CHEMISTRY METHOD 04/04/2024 10:29 PM EST [facility] Total Bilirubin 0.6 0.0 - 1.4 mg/dL LAB CHEMISTRY METHOD 04/04/2024 10:29 PM EST [facility] Blood Venous blood specimen / Unknown Venipuncture / Unknown 04/04/2024 9:58 PM EST 04/04/2024 10:03 PM EST Gordy Moss MD LAB BLOOD ORDERABLES Final Resu lt Performing Organization Address [facility]/ZIP Co de Phone Number [facility] [address] [place] [address], [place] [phone] * (ABNORMAL) POCT Glucose, blood (04/04/2024 8:48 PM EST) Only the most recent of2 resultswithin the time period is included. [facility] Glucose POCT 145(H) 70 - 100 mg/dL 04/04/2024 8:48 PM EST [facility] Blood Capillary blood specimen / Unknown 04/04/2024 8:48 PM EST 04/04/2024 8:50 PM EST Generic Provider Poct LAB POINT OF CARE TEST DOCKED DEVICE UNSOLICITED RESULTS Final Result Performing Organization Address [facility]/ZIP Co de Phone Number [facility] [address] [place] [address], [place] [phone] * Respiratory virus panel molecular study (03/10/2024 4:22 PM EST) [facility] Adenovirus Detection by PCR Not Detected Not Detected LAB MICROBIOLOGY METHOD 03/10/2024 5:55 PM EST [facility] Influenza A PCR Not Detected Not Detected LAB MICROBIOLOGY METHOD 03/10/2024 5:55 PM [facility] Influenza B PCR Not Detected Not Detected LAB MICROBIOLOGY METHOD 03/10/2024 5:55 PM [facility] Coronavirus 229E Not Detected Not Detected LAB MICROBIOLOGY METHOD 03/10/2024 5:55 PM [facility] Coronavirus HKU1 Not Detected Not Detected LAB MICROBIOLOGY METHOD 03/10/2024 5:55 PM [facility] Coronavirus OC43 Not Detected Not Detected LAB MICROBIOLOGY METHOD 03/10/2024 5:55 PM [facility] Coronavirus NL63 Not Detected Not Detected LAB MICROBIOLOGY METHOD 03/10/2024 5:55 PM [facility] Parainfluenza Virus 1 Not Detected Not Detected LAB MICROBIOLOGY METHOD 03/10/2024 5:55 PM [facility] Parainfluenza Virus 2 Not Detected Not Detected LAB MICROBIOLOGY METHOD 03/10/2024 5:55 PM [facility] Parainfluenza Virus 3 Not Detected Not Detected LAB MICROBIOLOGY METHOD 03/10/2024 5:55 PM [facility] Parainfluenza Virus 4 Not Detected Not Detected LAB MICROBIOLOGY METHOD 03/10/2024 5:55 PM [facility] RSV PCR Not Detected Not Detected LAB MICROBIOLOGY METHOD 03/10/2024 5:55 PM [facility] Human Metapneumovirus A and B Not Detected Not Detected LAB MICROBIOLOGY METHOD 03/10/2024 5:55 PM [facility] Rhinovirus/Entero virus Not Detected Not Detected LAB MICROBIOLOGY METHOD 03/10/2024 5:55 PM [facility] Bordetella pertussis Not Detected Not Detected LAB MICROBIOLOGY METHOD 03/10/2024 5:55 PM [facility] Bordetella parapertussis Not Detected Not Detected LAB MICROBIOLOGY METHOD 03/10/2024 5:55 PM [facility] Mycoplasma pneumo by PCR Not Detected Not Detected LAB MICROBIOLOGY METHOD 03/10/2024 5:55 PM EST [facility] Chlamydia pneumoniae Not Detected Not Detected LAB MICROBIOLOGY METHOD 03/10/2024 5:55 PM EST [facility] SARS COV-2 Not Detected Not Detected LAB MICROBIOLOGY METHOD 03/10/2024 5:55 PM EST [facility] Swab Both anterior nares / Unknown Non-blood Collection / Unknown 03/10/2024 4:22 PM EST 03/10/2024 4:57 PM EST Narrative [facility] - 03/10/2024 5:55 PM EST Testing was performed using the [employer] Respiratory Pathogen PCR Assay. All results must [...] OR DERABLES Final Result Performing Organization Address [facility]/ZIP Co de Phone Number [facility] [address] [place] [address], [place] [phone] * Rapid strep A screen (03/10/2024 4:22 PM EST) Strep A Ag Negative Negative, Invalid 03/10/2024 5:16 PM EST [facility] Comment:Refer to Throat Cult ure. Swab Structure of anterior portion of neck / Unknown Non-blood Collection / Unknown 03/10/2024 4:22 PM EST 03/10/2024 4:57 PM EST Ethel OWEN LAB MICROBIOLOGY - GENERAL OR DERABLES Final Result Performing Organization Address [facility]/ZIP Co de Phone Number [facility] [address] [place] [address], [place] [phone] * Culture throat (03/10/2024 4:22 PM EST) Culture, Throat No pathogens isolated. 03/12/2024 1:15 PM EST [facility] Swab Structure of anterior portion of neck / Unknown Non-blood Collection / Unknown 03/10/2024 4:22 PM EST 03/10/2024 4:57 PM EST us Ethel OWEN LAB MICROBIOLOGY - GENERAL OR DERABLES Final Result [facility] [address] [place] [address], from Last 3 Months Insurance [facility] Member Subscriber Plan / Payer (Ef fective 2016-Present) Name:Tom Kumar Relation to Subscriber:Self Name:Tom Kumar Payer ID:[id number] Group ID:[id number] Type:Not on file Address: [address] [place] [address] [employer] MED[employer] Member Subscriber Plan / Payer (Ef fective 2016-Present) Name:Tom Kumar Relation to Subscriber:Self Name:Tom Kumar Payer ID:[id number] Group ID:[id number] Type:Not on file Address: [address] [place] [phone] Care Teams Diet Counselor Relationship Specialty Start Date End Date Physician, No Pcp PCP - General 03/10/24
== END 2024-04-27 15:59 | disposition home or self-care (01) ==
PROVIDERS: PCP Internal Medicine; Visit Provider Internal Medicine
DX: E11.9 Type 2 diabetes mellitus without complications (principal); R79.89 Other specified abnormal findings of blood chemistry; E78.5 Hyperlipidemia, unspecified; M51.369 Other intervertebral disc degeneration, lumbar region without mention of lumbar back pain or lower extremity pain; I10 Essential (primary) hypertension

== ENCOUNTER → 2024-04-27 15:17 | Outpatient (BNVA) | payer OTHER, SELFPAY | PROVIDERS: PCP Internal Medicine; Visit Provider Internal Medicine | DX: E11.9 Type 2 diabetes mellitus without complications (principal); R79.89 Other specified abnormal findings of blood chemistry; E78.5 Hyperlipidemia, unspecified; I10 Essential (primary) hypertension; M51.369 Other intervertebral disc degeneration, lumbar region without mention of lumbar back pain or lower extremity pain | CPT/HCPCS: 83036; 96127; 99212 ==

== ENCOUNTER 2024-06-03 14:38 | Outpatient (REF) | payer OTHER, SELFPAY ==
--- NOTE | 2024-06-03 14:44 | PFT_ITS ---
Indication: Dyspnea Spirometry [FEV1 to FVC 77%; FEV1 3.32 L; FVC 4.33 L. No significant response to bronchodilators noted.] Lung Volumes [Total lung capacity 82% predicted; residual volume 69% predicted] Diffusion Capacity [DLCO 81% predicted] Comparisons [none] Interpretation [No obstructive nor restrictive ventilatory defects identified. No significant response to bronchodilators noted. Lung volumes are low normal. The patient does have a decrease in the expiratory reserve volume secondary to an elevated BMI. The patient does have a low normal diffusing capacity. Clinical correlation warranted.] MTDD
[2024-06-03 15:17] VITALS: PULSE 91; O2SAT 98
--- OUTSIDE RECORDS SUMMARY | 2024-06-03 18:21 | XMS_ITS | Clinical Summary ---
Author Organization [facility] Address [address] [place] [address] Care Team Providers Care Foamite Mixer Name Role Phone DylanbrittJacob NP Primary Care Provider [phone] Source Comments PLEASE NOTE, if this patient [...] Plan of Treatment Not on file [place] Care Teams Foamite Mixer Relationship Specialty Start Date End Date Jacob Bourgeois NP [address] [place] [address] PCP - General 01/15/18
--- OUTSIDE RECORDS SUMMARY | 2024-06-03 18:21 | XMS_ITS | Clinical Summary ---
Author Organization [facility] Address [address] [place] [address] Phone Care Team Providers Care Audit Spec Name Role Phone Physician, No Pcp Primary [...] EST - 04/05/2024 2:25 AM EST Emergency [facility] Emergency [address] [place] [address] Discharge Disposition: Home or Self Care 03/10/2024 2:11 PM EST - 03/10/2024 6:35 PM EST Emergency [facility] Emergency [address] [place] [address] Acute pharyngitis, unspecified etiology (Primary [...] reflex microscopic (04/04/2024 11:47 PM EST) Specific [place] Urine 1.018 1.003 - 1.030 LAB URINALYSIS - AUTOMATED METHOD 04/05/2024 12:16 AM [facility] pH, Urine 6.0 5.0 - 8.0 pH LAB URINALYSIS - AUTOMATED METHOD 04/05/2024 12:16 AM [facility] Leukocytes, Urine Negative Negative LAB URINALYSIS - AUTOMATED METHOD 04/05/2024 12:16 AM [facility] Nitrite, Urine Negative Negative LAB URINALYSIS - AUTOMATED METHOD 04/05/2024 12:16 AM [facility] Protein, Urine Negative <=Trace mg/dL LAB URINALYSIS - AUTOMATED METHOD 04/05/2024 12:16 AM [facility] Glucose, Urine Negative Negative mg/dL LAB URINALYSIS - AUTOMATED METHOD 04/05/2024 12:16 AM [facility] Ketones, Urine Negative Negative mg/dL LAB URINALYSIS - AUTOMATED METHOD 04/05/2024 12:16 AM [facility] Urobilinogen, Urine 1.0 0.2 - 1.0 mg/dL LAB URINALYSIS - AUTOMATED METHOD 04/05/2024 12:16 AM [facility] Bilirubin, Urine Negative Negative LAB URINALYSIS - AUTOMATED METHOD 04/05/2024 12:16 AM [facility] Blood, Urine Negative Negative LAB URINALYSIS - AUTOMATED METHOD 04/05/2024 12:16 AM [facility] Urine Urine specimen obtained by clean catch procedure / Unknown Non-blood Collection / Unknown 04/04/2024 11:47 PM EST 04/05/2024 12:01 AM EST us Gordy Moss MD LAB URINE ORDERABLES Final Resu lt Performing Organization Address [facility]/ZIP Co de Phone Number [facility] [address] [place] [address], * Beta hydroxybutyrate (04/04/2024 9:58 PM EST) Beta-Hydroxybu tyrate 1.0 0.2 - 2.8 mg/dL LAB CHEMISTRY METHOD 04/04/2024 10:28 PM EST [facility] Blood Venous blood specimen / Unknown Venipuncture / Unknown 04/04/2024 9:58 PM EST 04/04/2024 10:03 PM EST us Gordy Moss MD LAB BLOOD ORDERABLES Final Resu lt [facility] [address] [place] [address], [place] [phone] * (ABNORMAL) CBC auto differential (04/04/2024 9:58 PM EST) WBC 8.3 4.8 - 10.8 K/mcL LAB HEMETOLOGY METHOD 04/04/2024 10:10 PM EST [facility] RBC 5.00 4.50 - 5.50 M/mcL LAB HEMETOLOGY METHOD 04/04/2024 10:10 PM [facility] Hemoglobin 15.1 13.5 - 17.5 g/dL LAB HEMETOLOGY METHOD 04/04/2024 10:10 PM [facility] Hematocrit 44.1 42.0 - 54.0 % LAB HEMETOLOGY METHOD 04/04/2024 10:10 PM [facility] MCV 88.2 79.0 - 98.0 FL LAB HEMETOLOGY METHOD 04/04/2024 10:10 PM [facility] MCH 30.2 27.0 - 32.0 pcg LAB HEMETOLOGY METHOD 04/04/2024 10:10 PM [facility] MCHC 34.2 32.0 - 37.0 g/dL LAB HEMETOLOGY METHOD 04/04/2024 10:10 PM [facility] RDW 13.1 11.0 - 15.0 % LAB HEMETOLOGY METHOD 04/04/2024 10:10 PM [facility] Platelets 165 130 - 400 K/mcL LAB HEMETOLOGY METHOD 04/04/2024 10:10 PM [facility] MPV 12.1(H) 7.0 - 11.0 FL LAB HEMETOLOGY METHOD 04/04/2024 10:10 PM [facility] NRBC 0.0 <1.0 % LAB HEMETOLOGY METHOD 04/04/2024 10:10 PM [facility] NRBC Absolute 0.00 <0.10 K/mcL LAB HEMETOLOGY METHOD 04/04/2024 10:10 PM [facility] Neutrophils Relative 40.9 % LAB HEMETOLOGY METHOD 04/04/2024 10:10 PM [facility] Lymphocytes Relative 45.4 % LAB HEMETOLOGY METHOD 04/04/2024 10:10 PM EST [facility] Monocytes Relative 11.0 % LAB HEMETOLOGY METHOD 04/04/2024 10:10 PM EST [facility] Eosinophils Relative 1.9 % LAB HEMETOLOGY METHOD 04/04/2024 10:10 PM [facility] Basophils Relative 0.6 % LAB HEMETOLOGY METHOD 04/04/2024 10:10 PM EST [facility] Immature Granulocytes Relative 0.2 % LAB HEMETOLOGY METHOD 04/04/2024 10:10 PM [facility] Neutrophils Absolute 3.39 1.50 - 7.00 K/mcL LAB HEMETOLOGY METHOD 04/04/2024 10:10 PM [facility] Lymphocytes Absolute 3.77 1.00 - 5.00 K/mcL LAB HEMETOLOGY METHOD 04/04/2024 10:10 PM EST [facility] Monocytes Absolute 0.91 0.20 - 1.00 K/mcL LAB HEMETOLOGY METHOD 04/04/2024 10:10 PM [facility] Eosinophils Absolute 0.16 0.00 - 0.50 K/mcL LAB HEMETOLOGY METHOD 04/04/2024 10:10 PM [facility] Basophils Absolute 0.05 0.00 - 0.20 K/mcL LAB HEMETOLOGY METHOD 04/04/2024 10:10 PM EST [facility] Immature Granulocytes Absolute 0.02 0.00 - 0.03 K/mcL LAB HEMETOLOGY METHOD 04/04/2024 10:10 PM [facility] Blood Venous blood specimen / Unknown Venipuncture / Unknown 04/04/2024 9:58 PM EST 04/04/2024 10:03 PM EST us Gordy Aleta Moss MD LAB BLOOD ORDERABLES Final Resu lt [facility] [address] [place] [address], * Osmolality (04/04/2024 9:58 PM EST) Pathologist [facility] Osmolality Gomez 296 280 - 300 mOsm/kg LAB CHEMISTRY METHOD 04/04/2024 10:38 PM EST [facility] Blood Venous blood specimen / Unknown Venipuncture / Unknown 04/04/2024 9:58 PM EST 04/04/2024 10:03 PM EST Gordy Aleta Moss MD LAB BLOOD ORDERABLES Final Resu lt [facility] [address] [place] [address], * Magnesium (04/04/2024 9:58 PM EST) [facility] Magnesium 2.1 1.9 - 2.6 mg/dL LAB CHEMISTRY METHOD 04/04/2024 10:28 PM EST [facility] Blood Venous blood specimen / Unknown Venipuncture / Unknown 04/04/2024 9:58 PM EST 04/04/2024 10:03 PM EST Gordykyra Moss MD LAB BLOOD ORDERABLES Final Resu lt [facility] [address] [place] [address], * Lipase (04/04/2024 9:58 PM EST) [facility] Lipase 30 13 - 75 unit/L LAB CHEMISTRY METHOD 04/04/2024 10:28 PM EST [facility] Blood Venous blood specimen / Unknown Venipuncture / Unknown 04/04/2024 9:58 PM EST 04/04/2024 10:03 PM EST Gordy Moss MD LAB BLOOD ORDERABLES Final Resu lt Performing Organization Address [facility]/ZIP Co de Phone Number [facility] [address] [place] [address], * (ABNORMAL) Venous blood gas (04/04/2024 9:58 PM EST) pH, [place]ha 7.42 7.32 - 7.42 pH 04/04/2024 10:07 PM [facility] pCO2, [place]ha 46 41 - 51 mmHg 04/04/2024 10:07 PM [facility] pO2, [place]ha 21(L) 25 - 40 mmHg 04/04/2024 10:07 PM [facility] HCO3, Venous 26.5(H) 22.0 - 26.0 mmol/L 04/04/2024 10:07 PM [facility] O2 Sat, [place]ha 39.0 % 04/04/2024 10:07 PM [facility] Base Excess, [place]ha 4.4(H) -2.0 - 2.0 mmol/L 04/04/2024 10:07 PM [facility] Blood Venous blood specimen / Unknown Venipuncture / Unknown 04/04/2024 9:58 PM EST 04/04/2024 10:02 PM EST Gordykyra Moss MD LAB BLOOD ORDERABLES Final Resu lt [facility] [address] [place] [address], [place] [phone] * (ABNORMAL) Comprehensive metabolic panel (04/04/2024 9:58 PM EST) Sodium 138 133 - 145 mmol/L LAB CHEMISTRY METHOD 04/04/2024 10:29 PM EST [facility] Potassium 3.6 3.5 - 5.5 mmol/L LAB CHEMISTRY METHOD 04/04/2024 10:29 PM [facility] Chloride 108 96 - 110 mmol/L LAB CHEMISTRY METHOD 04/04/2024 10:29 PM [facility] CO2 28 21 - 32 mmol/L LAB CHEMISTRY METHOD 04/04/2024 10:29 PM [facility] Anion Gap 2(L) 3 - 11 LAB CHEMISTRY METHOD 04/04/2024 10:29 PM [facility] Glucose 156(H) 70 - 100 mg/dL LAB CHEMISTRY METHOD 04/04/2024 10:29 PM [facility] BUN 10 5 - 25 mg/dL LAB CHEMISTRY METHOD 04/04/2024 10:29 PM [facility] Creatinine 0.92 0.70 - 1.30 mg/dL LAB CHEMISTRY METHOD 04/04/2024 10:29 PM [facility] eGFR 98 >=60 mL/min/1. 73m2 LAB CHEMISTRY METHOD 04/04/2024 10:29 PM [facility] Comment:Calculation based on the??Chronic Kidney Disease Epidemiology Collaboration (CKD-EPI) equation refit??without adjustment for race. BUN/Creatinine Ratio 10.9 LAB CHEMISTRY METHOD 04/04/2024 10:29 PM [facility] Calcium 8.9 8.5 - 10.5 mg/dL LAB CHEMISTRY METHOD 04/04/2024 10:29 PM [facility] AST (SGOT) 61(H) 10 - 42 unit/L LAB CHEMISTRY METHOD 04/04/2024 10:29 PM [facility] ALT (SGPT) 123(H) 10 - 60 unit/L LAB CHEMISTRY METHOD 04/04/2024 10:29 PM [facility] Alkaline Phosphatase 90 42 - 121 unit/L LAB CHEMISTRY METHOD 04/04/2024 10:29 PM [facility] Total Protein 6.5 6.0 - 8.0 g/dL LAB CHEMISTRY METHOD 04/04/2024 10:29 PM EST [facility] Albumin 3.6 3.2 - [...] ORDERABLES Final Resu lt Performing Organization Address [facility]/ZIP Co de Phone Number [facility] [address] [place] [address], [place] [phone] * (ABNORMAL) POCT Glucose, blood (04/04/2024 8:48 PM EST) Only the most recent of2 resultswithin the time period is included. [facility] Glucose POCT 145(H) 70 - 100 mg/dL 04/04/2024 8:48 PM EST [facility] Blood Capillary blood specimen / Unknown 04/04/2024 8:48 PM EST 04/04/2024 8:50 PM EST Generic Provider Poct LAB POINT OF CARE TEST DOCKED DEVICE UNSOLICITED RESULTS Final Result Performing Organization Address City/[facility]/ZIP Co de Phone Number [facility] [address] [place] [address], [place] [phone] * Respiratory virus panel molecular study (03/10/2024 4:22 PM EST) [facility] Adenovirus Detection by PCR Not Detected Not Detected LAB MICROBIOLOGY METHOD 03/10/2024 5:55 PM EST [facility] Influenza A PCR Not Detected Not Detected LAB MICROBIOLOGY METHOD 03/10/2024 5:55 PM [facility] Influenza B PCR Not Detected Not Detected LAB MICROBIOLOGY METHOD 03/10/2024 5:55 PM [facility] Coronavirus 229E Not Detected Not Detected LAB MICROBIOLOGY METHOD 03/10/2024 5:55 PM [facility] Coronavirus HKU1 Not Detected Not Detected LAB MICROBIOLOGY METHOD 03/10/2024 5:55 PM [facility] Coronavirus OC43 Not Detected Not Detected LAB MICROBIOLOGY METHOD 03/10/2024 5:55 PM [facility] Coronavirus NL63 Not Detected Not Detected LAB MICROBIOLOGY METHOD 03/10/2024 5:55 PM [facility] Parainfluenza Virus 1 Not Detected Not Detected LAB MICROBIOLOGY METHOD 03/10/2024 5:55 PM [facility] Parainfluenza Virus 2 Not Detected Not Detected LAB MICROBIOLOGY METHOD 03/10/2024 5:55 PM [facility] Parainfluenza Virus 3 Not Detected Not Detected LAB MICROBIOLOGY METHOD 03/10/2024 5:55 PM [facility] Parainfluenza Virus 4 Not Detected Not Detected LAB MICROBIOLOGY METHOD 03/10/2024 5:55 PM [facility] RSV PCR Not Detected Not Detected LAB MICROBIOLOGY METHOD 03/10/2024 5:55 PM [facility] Human Metapneumovirus A and B Not Detected Not Detected LAB MICROBIOLOGY METHOD 03/10/2024 5:55 PM [facility] Rhinovirus/Entero virus Not Detected Not Detected LAB MICROBIOLOGY METHOD 03/10/2024 5:55 PM [facility] Bordetella pertussis Not Detected Not Detected LAB MICROBIOLOGY METHOD 03/10/2024 5:55 PM [facility] Bordetella parapertussis Not Detected Not Detected LAB MICROBIOLOGY METHOD 03/10/2024 5:55 PM [facility] Mycoplasma pneumo by PCR Not Detected Not Detected LAB MICROBIOLOGY METHOD 03/10/2024 5:55 PM EST [facility] Chlamydia pneumoniae Not Detected Not Detected [...] PM EST Testing was performed using the [employer] Respiratory Pathogen PCR Assay. All results must [...] that are below the limit of detection. tEhel OWEN LAB MICROBIOLOGY - GENERAL OR DERABLES Final Result Performing Organization Address City/[facility]/ZIP Co de Phone Number [facility] [address] [place] [address], [place] [phone] * Rapid strep A screen (03/10/2024 4:22 [...] OR DERABLES Final Result Performing Organization Address [facility]/ZIP Co de Phone Number [facility] [address] [place] [address], [place] [phone] * Culture throat (03/10/2024 4:22 PM EST) Culture, Throat No pathogens isolated. 03/12/2024 1:15 PM EST [facility] Swab Structure of anterior portion of neck / Unknown Non-blood Collection / Unknown 03/10/2024 4:22 PM EST 03/10/2024 4:57 PM EST us Ethel OWEN LAB MICROBIOLOGY - GENERAL OR DERABLES Final Result [facility] ([facility] [address] [place] [address], from Last 3 Months Insurance [facility] Member Subscriber Plan / Payer (Ef fective 2016-Present) Name:Tom Kumar Relation to Subscriber:Self Name:Tom Kumar Payer ID:[id number] Group ID:[id number] Type:Not on file Address: [address] [place] [address] [employer] MED[employer] Member Subscriber Plan / Payer (Ef fective 2016-Present) Name:Tom Kumar Relation to Subscriber:Self Name:Tom Kumar Payer ID:[id number] Group ID:[id number] Type:Not on file Address: [address] [place] [address] Care Teams Audit Spec Relationship Specialty Start Date End Date Physician, No Pcp PCP - General 03/10/24
--- OUTSIDE RECORDS SUMMARY | 2024-06-03 18:21 | XMS_ITS | Clinical Summary ---
Author Organization [facility] Address [address] [place] [address] Care Team Providers Care Foundry Worker Apprentice Name Role Phone Unavailable Primary Care Provider [...]
== END 2024-06-03 14:39 | disposition home or self-care (01) ==
LOC: HO.RESP 14:38
PROVIDERS: PCP Internal Medicine; Visit Provider Nurse Practitioner Family
DX: R06.09 Other forms of dyspnea (principal); R05.9 Cough, unspecified
CPT/HCPCS: 94010; 94640; 94727; 94729

== ENCOUNTER → 2024-06-03 14:44 | Outpatient (BNV) | payer OTHER, SELFPAY | PROVIDERS: PCP Internal Medicine; Visit Provider Hospitalist | DX: R06.09 Other forms of dyspnea (principal); R05.9 Cough, unspecified | CPT/HCPCS: 94060; 94727; 94729 ==

== ENCOUNTER 2024-08-23 15:40 | Outpatient (AMB) | payer OTHER, SELFPAY ==
--- NOTE | 2024-08-23 15:48 | MHC.PC.OV ---
Vital Signs 08/23/24 15:52 Height 5 ft 9 in Weight 235 lb BMI 34.7 BP 136/80 Blood Pressure Location Lt brachial Position Sitting Intake Visit Reasons: F/U Intake Note: Patient here for a follow up Social Work Specialist Required: No Accompanied by: Self / Same As Patient Allergies lisinopril Allergy (Intermediate, Verified 08/23/24 16:16) Cough acetaminophen [Percocet] Allergy (Mild, Verified 08/23/24 16:16) rash oxycodone [From Percocet] Allergy (Mild, Verified 08/23/24 16:16) rash Medication List - Last Reconciled 08/23/24 by Magali Taveras MD albuterol sulfate 90 mcg/actuation 2 puffs PO Q4-6H PRN alcohol swabs (Alcohol Prep Pads) 1 pad topical DAILY 90 days atorvastatin 10 mg PO BEDTIME 90 days blood pressure monitor (Blood Pressure Kit) As directed blood sugar diagnostic (OneTouch Ultra Test strips) Use 1 test strpi once a day blood-glucose meter (Oculo TherapyTouch UltraMini kit) As directed cholecalciferol (vitamin D3) 25 mcg PO DAILY 90 days cyclobenzaprine 10 mg PO TID PRN 90 days hydrochlorothiazide 25 mg PO DAILY 90 days hydroxyzine pamoate 25 mg PO BID PRN lancets (OneTouch Delica Plus Lancet) Use 1 lancet once a day lancets USe 1 lancet once a day losartan 25 mg PO DAILY 30 days metformin 500 mg PO DAILY 30 days pregabalin 200 mg PO BID 30 days terbinafine HCl 250 mg PO DAILY 90 days Tobacco use date assessed: 04/27/24 Dental Screening Dental Screen Date: 04/27/24 HPI HPI Comments History of Present Illness Details The patient is a 58-year-old male presenting for follow-up on diabetes management and other chronic conditions. The patient has been managing diabetes mellitus with metformin 500 mg once daily. His recent hemoglobin A1c was 6.5%, indicating good glycemic control. He reports feeling well overall, with no significant symptoms related to diabetes. The patient is also on atorvastatin for hyperlipidemia, with a recent LDL cholesterol level of 49 mg/dL, which is within target range. He has been adherent to his medication regimen, which includes losartan for blood pressure management. For lumbar degenerative disc disease, the patient uses Lyrica for pain management. He completed a course of terbinafine for onychomycosis, but reports that the condition has not fully resolved. [facility] Medical History Essential hypertension Postlaminectomy syndrome Abnormal barium swallow Dyslipidemia Transaminitis Right knee pain Obese Lumbar degenerative disc disease Surgical History History of colonoscopy Fusion of lumbar spine History of fracture of left ankle History of lumbar fusion History of arthroscopy of left knee Hx of arthroscopy of right knee Family History Father Diabetes Mother Diabetes Hypertension Asthma Social History Housing: House Alcohol intake: former Patient Tobacco Use Status: Never used Tobacco e-Cigarette/Vaping Use: Never Used Second Hand Smoke Exposure: No service: No Current occupational status: employed Current occupational exposures/hazards: No Cognitive needs: No Hearing needs: No Vision needs: No Questionnaire PHQ-9 Over the last 2 weeks, how often have you been bothered by any of the following problems? 1. Little interest or pleasure in doing things: not at all 2. Feeling down, depressed, or hopeless: not at all 3. Trouble falling or staying asleep, or sleeping too much: not at all 4. Feeling tired or having little energy: not at all 5. Poor appetite or overeating: not at all 6. Feeling bad about yourself - or that you are a failure or have let yourself or your family down: not at all 7. Trouble concentrating on things, such as reading the newspaper or watching television: not at all 8. Moving or speaking so slowly that other people could have noticed. Or the opposite - being so fidgety or restless that you have been moving around a lot more than usual: not at all 9. Thoughts that you would be better off or of hurting yourself in some way: not at all Total score: 0 Depression Screening Interpretation: Negative Depression Screening Done: Yes 14297 - PHQ-9 Billing: Yes Source: Developed by Drs. Leandro Teague, Veronique Carter, John Cosme and colleagues, with an educational rangel from [employer]. Thrive Questionnaire Date Thrive assessed: 08/21/24 I am a: Patient What is your living situation today?: I have a steady place to live Within the past 12 months, did the food you bought not last and you didn't have the money to get more?: I choose not to answer this question Within the past 12 months, did you worry whether your food would run out before you got money to buy more?: I choose not to answer this question Do you have trouble paying for medicines?: I choose not to answer this question Do you have trouble getting transportation to medical appointments?: No Do you have trouble paying your heating and electricity bill?: No Do you have trouble taking care of your child, family member or friend?: No Do you have trouble with day-to-day activities such as bathing, preparing meals, shopping, managing finances, etc.?: No Are you currently unemployed and looking for a job?: No Are you interested in more education?: No Please select the resources that you would like help with: None Currently or been in a relationship where the following occur: No concerns reported THRIVE Score: 0 AUDIT C Alcohol Use Questionnaire (AUDIT-C) 1. How often do you have a drink containing alcohol?: Never Total Score: 0 Score Reviewed/Action Taken: No BILL-7 AMB Questionnaire BILL-7 Date BILL - 7 assessed: 04/27/24 Feeling nervous, anxious, or on edge: 0 = Not at all Not being able to stop or control worryin = Not at all Worrying too much about different things: 0 = Not at all Trouble relaxin = Not at all Being so restless that it is hard to sit still: 0 = Not at all Becoming easily annoyed or irritable: 0 = Not at all Feeling afraid as if something awful might happen: 0 = Not at all Total BILL-7 score (0-4 normal; 5-9 mild; 10-14 moderate; 15-21 severe): 0 Source: Developed by Drs. Leandro Teague, Veronique Carter, John Cosme and colleagues, with an educational rangel from [employer]. BILL-7 Assessment Billing BILL-7 Assessment Tool: BILL-7 Assessment 12254 Review of Systems Const All systems reviewed & are unremarkable except as noted in HPI and below Card Denies chest pain at rest, Denies chest pain with activity, Denies edema, Denies irregular heart rhythm, Denies claudication, Denies dyspnea, Denies dyspnea on exertion, Denies orthopnea, Denies paroxysmal nocturnal dyspnea and Denies slow heart rate Resp Denies cough, Denies dyspnea and Denies dyspnea on exertion GI Denies abdominal pain, Denies change in bowel habits, Denies excessive flatus, Denies nausea and Denies vomiting Denies urinary hesitancy, Denies urinary incontinence and Denies urinary urgency Musc Denies abnormal gait, Denies atrophy, Denies deformity and Denies limited range of motion Skin/Breast Denies bleeding lesions, Denies changing lesions and Denies rash Neuro Denies abnormal gait and Denies lack of coordination Physical exam (Primary Care) Vital Signs: Last Vital Signs BP 136/80 08/23/24 15:52 BMI result Body Mass Index 34.7 Tobacco/Smoking Status: Tobacco use Status Tobacco use date assessed 04/27/24 08/23/24 15:50 Patient Tobacco Use Status Never used Tobacco 08/23/24 15:50 e-Cigarette/Vaping Use Never Used 08/23/24 15:50 PHQ-9: PHQ-9 Score PHQ-9: Total score 0 08/23/24 16:20 Depression Screening Interpretation: Negative Thrive Assessment: Date of Thrive Assessment Date Thrive assessed 08/21/24 08/23/24 15:50 Currently or been in a relationship where the following occur: No concerns reported Resp Effort & Inspection: normal respiratory effort Auscultation: clear to auscultation bilaterally Cardio Jugular venous distension: no JVD Rate: regular rate Rhythm: regular rhythm Heart sounds: S1 normal heart sound present and S2 normal heart sound present Extrem General: Yes full ROM Results AMB Hemoglobin A1c AMB Hemoglobin A1c 6.5 % Last Edit by KELLIE Sanchez on 08/23/24 16:00 Results Reviewed Results Reviewed: Laboratory Last Values Hgb A1c (Clinic) 6.5 % (4.0-6.0) H 08/23/24 15:48 Coding Level of Care Code Est Pt Level 4 (35002) Complex EM visit Add On G2211 Diagnoses Type 2 diabetes mellitus without complication, without long-term current use of insulin E11.9 Diabetes mellitus type: type 2 Diabetes mellitus superintendent terminal insulin use: without alf use Diabetes mellitus complication status: without complication Hyperlipidemia LDL goal <70 E78.5 Lumbar degenerative disc disease M51.36 Essential hypertension I10 Additional Codes BILL-7 Assessment Billing - BILL-7 Assessment Tool: BILL-7 Assessment 90577 ([id number]) PHQ-9 - 09825 - PHQ-9 Billing: Yes ([id number]) Time Spent (min) 21 Assessment & Plan Assessment & Plan (1) Diabetes mellitus: Code(s): E11.9 - Type 2 diabetes mellitus without complications Category: Medical Qualifiers: Diabetes mellitus type: type 2 Diabetes mellitus alf insulin use: without superintendent terminal use Diabetes mellitus complication status: without complication Qualified Code(s): E11.9 - Type 2 diabetes mellitus without complications (2) Hyperlipidemia LDL goal <70: Code(s): E78.5 - Hyperlipidemia, unspecified Category: Medical (3) Lumbar degenerative disc disease: Code(s): M51.36 - Other intervertebral disc degeneration, lumbar region Category: Medical (4) Essential hypertension: Code(s): I10 - Essential (primary) hypertension Category: Medical Plan The patient will continue with metformin 500 mg daily for diabetes management, given the current good glycemic control with an A1c of 6.5%. He will maintain his current regimen of atorvastatin for hyperlipidemia, as his LDL cholesterol is well-controlled at 49 mg/dL. For lumbar degenerative disc disease, the patient will continue using Lyrica for pain management. Despite completing terbinafine treatment, the onychomycosis persists, and further evaluation or treatment may be necessary. Patient was informed and verbally consented to the use of an ambient scribe for clinic note documentation during this visit. Orders: Orders AMB Hemoglobin A1c Today E11.9 - Type 2 diabetes mellitus without complications Lipid Panel 5 Months E78.5 - Hyperlipidemia, unspecified Vitamin D 25-OH Total 5 Months E55.9 - Vitamin D deficiency, unspecified Microalbumin, Random (w Creat) 5 Months R80.9 - Proteinuria, unspecified Comprehensive [place]. Panel Fast 5 Months E11.9 - Type 2 diabetes mellitus without complications Medications: Changed From metformin 500 mg PO DAILY 30 days 30 tabs 1RF To metformin 500 mg PO DAILY 90 tabs 1RF 90 days
[2024-08-23 15:52] VITALS: BP 136/80; BMI 34.7
--- OUTSIDE RECORDS SUMMARY | 2024-08-23 17:35 | XMS_ITS | Clinical Summary ---
Author Organization [facility] Address [address] [place] [address] Care Team Providers Care Cuff Runner Name Role Phone Unavailable Primary Care Provider [...] Vaccine (1 of 2) 12/10/2017 Influenza Vaccine (Season Ended) 2024 Pneumococcal Vaccine Aged Out No long er eligible based on patient's age to complete this topic RSV Ped < 20 months Aged Out No longe r eligible based on patient's age to complete this topic
== END 2024-08-23 16:23 | disposition home or self-care (01) ==
LOC: HO.HMCH 15:41
PROVIDERS: PCP Internal Medicine; Visit Provider Internal Medicine
DX: E11.9 Type 2 diabetes mellitus without complications (principal); E78.5 Hyperlipidemia, unspecified; M51.369 Other intervertebral disc degeneration, lumbar region without mention of lumbar back pain or lower extremity pain; I10 Essential (primary) hypertension

== ENCOUNTER → 2024-08-23 15:40 | Outpatient (BNVA) | payer OTHER, SELFPAY | PROVIDERS: PCP Internal Medicine; Visit Provider Internal Medicine | DX: E11.9 Type 2 diabetes mellitus without complications (principal); I10 Essential (primary) hypertension; M51.360 Other intervertebral disc degeneration, lumbar region with discogenic back pain only; E78.5 Hyperlipidemia, unspecified; R80.9 Proteinuria, unspecified; Z79.84 Long term (current) use of oral hypoglycemic drugs | CPT/HCPCS: 83036; 96127; 99212 ==

== ENCOUNTER 2024-09-21 15:52 | Outpatient (AMB) | payer OTHER, SELFPAY ==
--- NOTE | 2024-09-21 15:54 | MHC.OFFVIS ---
Vital Signs 09/21/24 15:55 Height 5 ft 9 in Weight 232 lb 8 oz BMI 34.3 BP 122/70 Blood Pressure Location Rt brachial Position Sitting Pulse 101 H Pulse Source Pulse Oximeter Pulse Oximetry (%) 96 Oxygen Delivery Method Room Air Intake Visit Reasons: hypoventilation Allergies lisinopril Allergy (Intermediate, Verified 09/21/24 15:58) Cough acetaminophen (Percocet) Allergy (Mild, Verified 09/21/24 15:58) rash oxycodone (From Percocet) Allergy (Mild, Verified 09/21/24 15:58) rash HPI HPI hypoventilation: Details: Tom is a pleasant 58 year old male, never smoker, with underlying HTN. He was initially referred by PCP after recent home sleep study for DOT screening revealed mild nocturnal hypoxemia <88% for 7 minutes, possibly related to underlying respiratory disorder vs technical issues, negative for AROLDO. He also reported a dry cough that has developed over the last year as well as dyspnea on moderate exertion. Denies wheezing or chest tightness or prior dx of asthma. Today he presents to review PFT results. [facility] Medical History Essential hypertension Postlaminectomy syndrome Abnormal barium swallow Dyslipidemia Transaminitis Right knee pain Obese Lumbar degenerative disc disease Surgical History History of colonoscopy Fusion of lumbar spine History of fracture of left ankle History of lumbar fusion History of arthroscopy of left knee Hx of arthroscopy of right knee Family History Father Diabetes Mother Diabetes Hypertension Asthma Social History Housing: House Alcohol intake: former Patient Tobacco Use Status: Never used Tobacco e-Cigarette/Vaping Use: Never Used Second Hand Smoke Exposure: No service: No Current occupational status: employed Current occupational exposures/hazards: No Cognitive needs: No Hearing needs: No Vision needs: No Physical Exam Vital Signs: Last Vital Signs Pulse 101 H 09/21/24 15:55 BP 122/70 09/21/24 15:55 Pulse Ox 96 09/21/24 15:55 Oxygen Delivery Method Room Air 09/21/24 15:55 BMI result Body Mass Index 34.3 Assessment & Plan Assessment & Plan (1) Nocturnal hypoxemia: Code(s): G47.34 - Idiopathic sleep related nonobstructive alveolar hypoventilation Category: Medical (2) Cough: Code(s): R05 - Cough Category: Medical (3) Dyspnea on exertion: Code(s): R06.09 - Other forms of dyspnea Category: Medical Plan Reviewed PFT which revealed no obstructive nor restrictive ventilatory defects identified. No significant response to bronchodilators noted. Lung volumes are low normal. The patient does have a decrease in the expiratory reserve volume secondary to an elevated BMI. The patient does have a low normal diffusing capacity. At the last visit patient sent for CXR however did not have performed, will reenter order and consider chest CT to assess for any underlying parenchymal condition contributing to mild nocturnal hypoxemia and low normal DLCO. Given findings on home sleep study of nocturnal hypoxemia, will send in in lab sleep study to better assess. All questions were answered and patient is in agreement of plan. Will follow up to review results or sooner if needed. Orders: Orders XR chest 2V 09/21/24 R06.00 - Dyspnea, unspecified Coding Level of Care Code Est Pt Level 4 (13530) Diagnoses Nocturnal hypoxemia G47.34 Cough R05 Dyspnea on exertion R06.09
[2024-09-21 15:55] VITALS: BP 122/70; PULSE 101; O2SAT 96; BMI 34.3
--- OUTSIDE RECORDS SUMMARY | 2024-09-21 16:39 | XMS_ITS | Clinical Summary ---
Author Organization [facility] Address [address] [place] [address] Phone Care Team Providers Care Glove Pairer Name Role Phone Physician, No Pcp Primary [...] Encounters Date Type Department Care Team Description 06/30/2024 6:49 AM EDT - 06/30/2024 2:[address] [facility] [address] [place] [address] Vomiting and diarrhea (Primary Dx) Discharge Disposition: Home or Self Care 06/29/2024 8:40 PM EDT - 06/30/2024 12:[address] [facility] [address] [place] [address] Discharge Disposition: Left Against Medical Advice from Last 3 Months Medical History Medical History Date Comments Diabetes mellitus ([facility]/HCC V24, CMS/HCC V28) Hypertension Social History Tobacco Use Types Packs/Day Years Used Date Smoking Tobacco: Never Smokeless Tobacco: Never Tobacco Cessation:Counseling Given: Not Answered Alcohol Use Standard Drinks/Week Comments Never 0 (1 standard drink = 0.6 oz pur e alcohol) Sex and Gender Information Value Date Recorded Sex Assigned at Male 06/30/2024 7:58 AM EDT Legal Sex Male 12:52 AM EST Gender Identity Male 06/30/2024 7:58 AM EDT Sexual Orientation Straight 06/30/2024 7: 58 AM EDT Obstetrics History Last Filed Vital Signs Vital Sign Reading Time Taken Comments Blood Pressure 123/79 06/30/2024 9:42 AM EDT Pulse 96 06/30/2024 9:42 AM EDT Temperature 36.8 C (98.3 F) 06/30/2024 9:42 AM EDT Respiratory Rate 19 06/30/2024 9:42 AM EDT Oxygen Saturation 94% 06/30/2024 9:42 AM EDT Inhaled Oxygen Concentration - - Weight 99.8 kg (220 lb) 06/30/2024 5:16 AM EDT Height 172.7 cm (5' 8 ) 06/30/2024 5:16 AM EDT Body Mass Index 33.45 06/30/2024 5:16 AM EDT Plan of Treatment Health Maintenance Due Date Last Done Comments Hepatitis B Vaccines (1 of 3 - 19+ 3-dose series) 12/10/1986 Pneumococcal Vaccine: 50+ Years (1 of 2 - PCV) 12/10/1986 Zoster Vaccines (1 of 2) 12/10/2017 Cholesterol Screening (Lipid Panel) 02/10/2022 Colorectal Cancer Screening: Colonoscopy 02/10/2022 Depression Screening 02/10/2022 HIV Screening 02/10/2022 Hepatitis C Screening 02/10/2022 Medicare Annual Wellness Visit 02/10/2022 Social Influencers of Health Screening 02/10/2022 COVID-19 Vaccine ( - season) 2023 02/15/2021, 07/04/2020, 06/12/2020 Influenza Vaccine (#1) 2024 , 02/07/2023, 12/05/2020, Additional history exists DTaP,Tdap,and Td Vaccines (2 - Td or Tdap) 06/19/2025 06/20/2015 Hypertension/CHF/CAD Annual BMP Blood Test 06/30/2025 06/30/2024, 06/29/2024, 04/04/2024, Additional history exists HIB Vaccines Aged Out [...] age to complete this topic Meningococcal B Vaccine Aged Out No l onger eligible based on patient's age to complete this topic RSV Immunization Patients Under 20 months Aged Out No longer eligible based on patient's age to complete this topic Varicella Vaccines Aged Out No longer eligible based on patient's age to complete this topic Procedures Procedure Name Priority Date/Time Associated Diagnosis Comments ECG ANNOTATED 07/01/2024 ECG 12-LEAD STAT 06/30/2024 9:22 AM EDT TROPONIN I HIGH SENSITIVITY STAT 06/30/2024 9:19 AM EDT XR CHEST 2 VIEWS STAT 06/30/2024 7:39 AM EDT B-TYPE NATRIURETIC PEPTIDE STAT 06/30/2024 7:29 AM EDT TROPONIN I HIGH SENSITIVITY STAT 06/30/2024 7:29 AM EDT CBC WITH AUTO DIFFERENTIAL STAT 06/30/2024 7:29 AM EDT LIPASE STAT 06/30/2024 7:29 AM EDT MAGNESIUM STAT 06/30/2024 7:29 AM EDT COMPREHENSIVE METABOLIC PANEL STAT 06/30/2024 7:29 AM EDT CBC AND DIFFERENTIAL STAT 06/30/2024 7:29 AM EDT ECG 12-LEAD STAT 06/30/2024 7:22 AM EDT POCT GLUCOSE BLOOD Routine 06/30/2024 6: 36 AM EDT ECG ANNOTATED 06/30/2024 CBC WITH AUTO DIFFERENTIAL STAT 06/29/2024 8:56 PM EDT MAGNESIUM STAT 06/29/2024 8:56 PM EDT BASIC METABOLIC PANEL STAT 06/29/2024 8:56 PM EDT CBC AND DIFFERENTIAL STAT 06/29/2024 8:56 PM EDT ECG 12-LEAD STAT 06/29/2024 8:53 PM EDT from Last 3 Months Results * ECG-Annotated (07/01/2024) Only the most recent of2 resultswithin the time period is included. us Provider Onbase MD ECG ORDERABLES Final Result * ECG 12 lead (06/30/2024 9:22 AM EDT) Only the most recent of3 resultswithin the time period is included. Ventricular Rate ECG 96 BPM GEMUSE Atrial Rate 96 BPM GEMUSE P-R Interval 164 ms GEMUSE QRS Duration 90 ms GEMUSE Q-T Interval 396 ms GEMUSE QTc 500 ms GEMUSE P Wave Leland 40 degrees GEMUSE R Leland 9 degrees GEMUSE T Leland 4 degrees GEMUSE ECG Interpretation Normal sinus rhythm Prolonged QT When compared with ECG of 30-JUN-2024 07:22, (unconfirmed) No significant change was found Confirmed by DAMIR MARTINEZ ([id number]) on 06/30/2024 8:58:14 PM GEMUSE 06/30/2024 9:22 AM EDT 06/30/2024 8:58 PM EDT Marco Ham MD ECG ORDERABLES Final Res ult Performing Organization Address [facility]/ZIP Co de Phone Number GEMUSE * Troponin I high sensitivity (06/30/2024 9:19 AM EDT) Only the most recent of2 resultswithin the time period is included. [facility] High Sensitivity Troponin I 6 <=79 ng/L LAB CHEMISTRY METHOD 06/30/2024 11:41 AM EDT [facility] Blood Venous blood specimen / Unknown Venipuncture / Unknown 06/30/2024 9:19 AM EDT 06/30/2024 11:08 AM EDT Narrative [facility] - 06/30/2024 11:41 AM EDT High levels of biotin in samples may falsely decrease hsTroponin values. Use caution when interpreting hsTroponin results in patients taking biotin who exhibit renal impairment (eGFR <60) or in patients taking more than 20 mg/day of biotin. Marco Ham MD LAB BLOOD ORDERABLES Gerda l Result Performing Organization Address [facility] de Phone Number [facility] [address] [place] [address], [place] [phone] * XR Chest 2 Views (06/30/2024 7:39 AM EDT) Anatomical Region Laterality Modality Body Radiographic Lay ging 06/30/2024 7:46 AM EDT Impressions 06/30/2024 7:48 AM EDT Chronic elevation of the right hemidiaphragm. Otherwise, normal examination. Code 57454 -------- FINAL REPORT -------- Dictated By: Bari Penn Dictated Date: 06/30/2024 07:46 ET Assigned Physician: Bari Penn Reviewed and Electronically Signed By: Bari Penn Signed Date: 06/30/2024 07:48 ET Workstation ID: [id number] Transcribed By: Self Edit Transcribed Date: 06/30/2024 07:46 ET Narrative 06/30/2024 7:48 AM EDT HISTORY: The patient is a 58-year-old male with chest and abdominal pain pain. FINDINGS: PA and lateral radiographs of the chest demonstrate normal appearance of the bony structures. The cardiac and mediastinal contours are within normal limits. The lungs and costophrenic angles are clear. The right hemidiaphragm is again seen to be elevated as also demonstrated on the most recent prior study performed 08/11/2022 as well as prior chest radiographs dating back to 06/13/2010. Procedure Note Bari Penn MD - 06/30/2024 HISTORY: The patient is a 58-year-old male with chest and abdominal painpain. FINDINGS: PA and lateral radiographs of the chest demonstrate normalappearance of the bony structures. The cardiac and mediastinal contoursare within normal limits. The lungs and costophrenic angles are clear. Theright hemidiaphragm is again seen to be elevated as also demonstrated onthe most recent prior study performed 08/11/2022 as well as prior chestradiographs dating back to 06/13/2010. IMPRESSION: Chronic elevation of the right hemidiaphragm. Otherwise, normalexamination. Code 53240 -------- FINAL REPORT -------- Dictated By: Bari Penn Dictated Date: 06/30/2024 07:46 ET Assigned Physician: Bari Penn Reviewed and Electronically Signed By: Bari Penn Signed Date: 06/30/2024 07:48 ET Workstation ID: [id number] Transcribed By: Self Edit Transcribed Date: 06/30/2024 07:46 ET us Marco Ham MD IMG XR PROCEDURES Final R esult * (ABNORMAL) CBC auto differential (06/30/2024 7:29 AM EDT) Only the most recent of2 resultswithin the time period is included. [facility] Signature WBC 11.5(H) 4.8 - 10.8 K/mcL LAB HEMETOLOGY METHOD 06/30/2024 8:02 AM [facility] RBC 5.40 4.50 - 5.50 M/mcL LAB HEMETOLOGY METHOD 06/30/2024 8:02 AM [facility] Hemoglobin 15.8 13.5 - 17.5 g/dL LAB HEMETOLOGY METHOD 06/30/2024 8:02 AM [facility] Hematocrit 46.2 42.0 - 54.0 % LAB HEMETOLOGY METHOD 06/30/2024 8:02 AM [facility] MCV 86.0 79.0 - 98.0 FL LAB HEMETOLOGY METHOD 06/30/2024 8:02 AM [facility] MCH 29.4 27.0 - 32.0 pcg LAB HEMETOLOGY METHOD 06/30/2024 8:02 AM [facility] MCHC 34.2 32.0 - 37.0 g/dL LAB HEMETOLOGY METHOD 06/30/2024 8:02 AM [facility] RDW 13.1 11.0 - 15.0 % LAB HEMETOLOGY METHOD 06/30/2024 8:02 AM [facility] Platelets 194 130 - 400 K/mcL LAB HEMETOLOGY METHOD 06/30/2024 8:02 AM [facility] MPV 12.6(H) 7.0 - 11.0 FL LAB HEMETOLOGY METHOD 06/30/2024 8:02 AM [facility] NRBC 0.0 <1.0 % LAB HEMETOLOGY METHOD 06/30/2024 8:02 AM [facility] NRBC Absolute 0.00 <0.10 K/mcL LAB HEMETOLOGY METHOD 06/30/2024 8:02 AM [facility] Neutrophils Relative 84.8 % LAB HEMETOLOGY METHOD 06/30/2024 8:02 AM [facility] Lymphocytes Relative 8.8 % LAB HEMETOLOGY METHOD 06/30/2024 8:02 AM [facility] Monocytes Relative 5.1 % LAB HEMETOLOGY METHOD 06/30/2024 8:02 AM [facility] Eosinophils Relative 0.3 % LAB HEMETOLOGY METHOD 06/30/2024 8:02 AM [facility] Basophils Relative 0.3 % LAB HEMETOLOGY METHOD 06/30/2024 8:02 AM [facility] Immature Granulocytes Relative 0.7 % LAB HEMETOLOGY METHOD 06/30/2024 8:02 AM [facility] Neutrophils Absolute 9.75(H) 1.50 - 7.00 K/mcL LAB HEMETOLOGY METHOD 06/30/2024 8:02 AM [facility] Lymphocytes Absolute 1.01 1.00 - 5.00 K/mcL LAB HEMETOLOGY METHOD 06/30/2024 8:02 AM [facility] Monocytes Absolute 0.58 0.20 - 1.00 K/mcL LAB HEMETOLOGY METHOD 06/30/2024 8:02 AM [facility] Eosinophils Absolute 0.03 0.00 - 0.50 K/mcL LAB HEMETOLOGY METHOD 06/30/2024 8:02 AM [facility] Basophils Absolute 0.03 0.00 - 0.20 K/mcL LAB HEMETOLOGY METHOD 06/30/2024 8:02 AM [facility] Immature Granulocytes Absolute 0.08(H) 0.00 - 0.03 K/mcL LAB HEMETOLOGY METHOD 06/30/2024 8:02 AM EDT [facility] Blood Venous blood specimen / Unknown Venipuncture / Unknown 06/30/2024 7:29 AM EDT 06/30/2024 7:53 AM EDT Marco Ham MD LAB BLOOD ORDERABLES Gerda l Result Performing Organization Address City/[facility]/ZIP Co de Phone Number [facility] [address] [place] [address], [place] [phone] * B-type natriuretic peptide (06/30/2024 7:29 AM EDT) BNP 3 <=100 pcg/mL LAB CHEMISTRY METHOD 06/30/2024 8:48 AM EDT [facility] Blood Venous blood specimen / Unknown Venipuncture / Unknown 06/30/2024 7:29 AM EDT 06/30/2024 7:53 AM EDT Marco Ham MD LAB BLOOD ORDERABLES Gerda l Result Performing Organization Address City/[facility]/ZIP Co de Phone Number [facility] [address] [place] [address], [place] [phone] * Magnesium (06/30/2024 7:29 AM EDT) Only the most recent of2 resultswithin the time period is included. Magnesium 1.9 1.9 - 2.6 mg/dL LAB CHEMISTRY METHOD 06/30/2024 8:22 AM EDT [facility] Blood Venous blood specimen / Unknown Venipuncture / Unknown 06/30/2024 7:29 AM EDT 06/30/2024 7:53 AM EDT Marco Ham MD LAB BLOOD ORDERABLES Gerda l Result Performing Organization Address City/[facility]/ZIP Co de Phone Number [facility] [address] [place] [address], * Lipase (06/30/2024 7:29 AM EDT) Pathologist [facility] Lipase 18 13 - 75 unit/L LAB CHEMISTRY METHOD 06/30/2024 8:22 AM EDT [facility] Blood Venous blood specimen / Unknown Venipuncture / Unknown 06/30/2024 7:29 AM EDT 06/30/2024 7:53 AM EDT Marco Ham MD LAB BLOOD ORDERABLES Gerda l Result Performing Organization Address [facility]/ZIP Co de Phone Number [facility] [address] [place] [address], * (ABNORMAL) Comprehensive metabolic panel (06/30/2024 7:29 AM EDT) [facility] Sodium 141 133 - 145 mmol/L LAB CHEMISTRY METHOD 06/30/2024 8:42 AM [facility] Potassium 3.6 3.5 - 5.5 mmol/L LAB CHEMISTRY METHOD 06/30/2024 8:42 AM [facility] Chloride 106 96 - 110 mmol/L LAB CHEMISTRY METHOD 06/30/2024 8:42 AM [facility] CO2 26 21 - 32 mmol/L LAB CHEMISTRY METHOD 06/30/2024 8:42 AM [facility] Anion Gap 9 3 - 11 LAB CHEMISTRY METHOD 06/30/2024 8:42 AM [facility] Glucose 136(H) 70 - 100 mg/dL LAB CHEMISTRY METHOD 06/30/2024 8:42 AM [facility] BUN 13 5 - 25 mg/dL LAB CHE[facility]STR[facility] Creatinine 0.88 0.70 - 1.30 mg/dL LAB CHEMISTRY METHOD 06/30/2024 8:42 AM [facility] eGFR 101 >=60 mL/min/1. 73m2 LAB CHEMISTRY METHOD 06/30/2024 8:42 AM [facility] Comment:Calculation based on the Chronic Kidney Disease Epidemiology Collaboration (CKD-EPI) equation refit without adjustment for race. BUN/Creatinine Ratio 14.8 LAB CHEMISTRY METHOD 06/30/2024 8:42 AM [facility] Calcium 8.9 8.5 - 10.5 mg/dL LAB CHEMISTRY METHOD 06/30/2024 8:42 AM [facility] AST (SGOT) 59(H) 10 - 42 unit/L LAB CHEMISTRY METHOD 06/30/2024 8:42 AM [facility] ALT (SGPT) 146(H) 10 - 60 unit/L LAB CHEMISTRY METHOD 06/30/2024 8:42 AM [facility] Alkaline Phosphatase 87 42 - 121 unit/L LAB CHEMISTRY METHOD 06/30/2024 8:42 AM [facility] Total Protein 7.0 6.0 - 8.0 g/dL LAB CHEMISTRY METHOD 06/30/2024 8:42 AM [facility] Albumin 3.8 3.2 - 5.0 g/dL LAB CHEMISTRY METHOD 06/30/2024 8:42 AM [facility] Total Bilirubin 2.0(H) 0.0 - 1.4 mg/dL LAB CHEMISTRY METHOD 06/30/2024 8:42 AM [facility] Comment:Results verified by repeat testing Blood Venous blood specimen / Unknown Venipuncture / Unknown 06/30/2024 7:29 AM EDT 06/30/2024 7:53 AM EDT Marco Ham MD LAB BLOOD ORDERABLES Gerda l Result Performing Organization Address City/[facility]/ZIP Co de Phone Number [facility] [address] [place] [address], [place] [phone] * (ABNORMAL) POCT Glucose, blood (06/30/2024 6:36 AM EDT) Glucose POCT 161(H) 70 - 100 mg/dL 07/04/2024 3:07 AM EDT [facility] Blood Capillary blood specimen / Unknown 06/30/2024 6:36 AM EDT 07/04/2024 3:08 AM EDT us Generic Provider Poct LAB POINT OF CARE TEST DOCKED DEVICE UNSOLICITED RESULTS Final Result Performing Organization Address [facility]/ZIP Co de Phone Number [facility] [address] [place] [address], [place] [phone] * (ABNORMAL) Basic metabolic panel (06/29/2024 8:56 PM EDT) Pathologist [facility] Sodium 137 133 - 145 mmol/L LAB CHEMISTRY METHOD 06/29/2024 9:40 PM [facility] Potassium 3.3(L) 3.5 - 5.5 mmol/L LAB CHEMISTRY METHOD 06/29/2024 9:40 PM [facility] Chloride 105 96 - 110 mmol/L LAB CHEMISTRY METHOD 06/29/2024 9:40 PM [facility] CO2 24 21 - 32 mmol/L LAB CHEMISTRY METHOD 06/29/2024 9:40 PM [facility] Anion Gap 8 3 - 11 LAB CHEMISTRY METHOD 06/29/2024 9:40 PM [facility] Glucose 164(H) 70 - 100 mg/dL LAB CHEMISTRY METHOD 06/29/2024 9:40 PM [facility] BUN 11 5 - 25 mg/dL LAB CHEMISTRY METHOD 06/29/2024 9:40 PM EDT [facility] Creatinine 1.11 0.70 - 1.30 mg/dL LAB CHEMISTRY METHOD 06/29/2024 9:40 PM EDT [facility] eGFR 78 >=60 mL/min/1. 73m2 LAB CHEMISTRY METHOD 06/29/2024 9:40 PM EDT [facility] Comment:Calculation based on the Chronic Kidney Disease Epidemiology Collaboration (CKD-EPI) equation refit without adjustment for race. BUN/Creatinine Ratio 9.9 LAB CHEMISTRY METHOD 06/29/2024 9:40 PM EDT [facility] Calcium 9.2 8.5 - 10.5 mg/dL LAB CHEMISTRY METHOD 06/29/2024 9:40 PM EDT [facility] Blood Venous blood specimen / Unknown Venipuncture / Unknown 06/29/2024 8:56 PM EDT 06/29/2024 9:16 PM EDT us Nelson Lew MD LAB BLOOD ORDERABLES Final Result [facility] [address] [place] [address], from Last 3 Months Insurance [facility] Member Subscriber Plan / Payer (Ef fective 2016-Present) Name:Tom Kumar Relation to Subscriber:Self Name:Tom Kumar Payer ID:[id number] Group ID:[id number] Type:Not on file Address: [place] [address] [address] [id number] [facility] MEDICARE Member Subscriber Plan / Payer (Ef fective 2016-Present) Name:Tom Kumar Relation to Subscriber:Self Name:Tom Kumar Payer ID:[id number] Group ID:[id number] Type:Not on file Address: [facility] [address] [phone] Care Teams Glove Pairer Relationship Specialty Start Date End Date Physician, No Pcp PCP - General 03/10/24
--- OUTSIDE RECORDS SUMMARY | 2024-09-21 16:39 | XMS_ITS | Clinical Summary ---
Author Organization [facility] Address [address] [place] [address] Care Team Providers Care Lcsw Name Role Phone DylanbrittJacob NP Primary Care Provider [phone] Source Comments PLEASE NOTE, if this patient [...] 66 02/06/2016 10:06 AM EST Temperature 36.8 C (98.2 F) 02/06/2016 10:06 AM EST Respiratory Rate 16 02/06/2016 10:06 AM EST Oxygen Saturation - - Inhaled Oxygen Concentration - - Weight 92.5 kg (204 lb) 02/06/2016 10:06 AM EST Height 172.1 cm (5' 7.75 ) 02/06/2016 10:[address] Body Mass Index 31.25 02/06/2016 10:06 AM EST Plan of Treatment Not on file [place] Care Teams Lcsw Relationship Specialty Start Date End Date Jacob Bourgeois NP [address] [place] [address] PCP - General 01/15/18
--- OUTSIDE RECORDS SUMMARY | 2024-09-21 16:39 | XMS_ITS | Clinical Summary ---
Author Organization [facility] Address [address] [place] [address] Care Team Providers Care Deburr Technician Name Role Phone Unavailable Primary Care Provider [...] (1 of 2) 12/10/2017 Influenza Vaccine (#1) 2024 Pneumococcal Vaccine Aged Out No long er eligible based on patient's age to complete this topic RSV Ped < 20 months Aged Out No longe r eligible based on patient's age to complete this topic
== END 2024-09-21 16:17 | disposition home or self-care (01) ==
LOC: HO.HPSW 15:52
PROVIDERS: PCP Internal Medicine; Visit Provider Nurse Practitioner Family
DX: G47.34 Idiopathic sleep related nonobstructive alveolar hypoventilation (principal); R05.9 Cough, unspecified; R06.09 Other forms of dyspnea
CPT/HCPCS: 99214

== ENCOUNTER → 2024-09-21 15:52 | Outpatient (BNVA) | payer OTHER, SELFPAY | PROVIDERS: PCP Internal Medicine; Visit Provider Nurse Practitioner Family | DX: G47.34 Idiopathic sleep related nonobstructive alveolar hypoventilation (principal); R05.9 Cough, unspecified; R06.09 Other forms of dyspnea | CPT/HCPCS: 99212 ==

== ENCOUNTER → 2024-11-03 19:51 | Outpatient (REF) | payer OTHER, SELFPAY ==
--- OUTSIDE RECORDS SUMMARY | 2024-11-04 07:56 | XMS_ITS | Clinical Summary ---
Author Organization [facility] Address [address] [place] [address] Phone Care Team Providers Care Rock Cutter Name Role Phone Physician, No Pcp Primary [...] - 09/25/2024 11:59 PM EDT Hospital Encounter [facility] Xray [address] [place] [address] Dyspnea, unspecified Discharge Disposition: Home or Self Care from Last 3 Months Medical History Medical History Date Comments Diabetes mellitus ([facility]/HCC V24, [facility] V28) Hypertension Social History Tobacco Use Types [...] Signed Date: 09/25/2024 09:15 ET Workstation ID: [id number] Transcribed By: Self Edit Transcribed Date: 09/25/2024 [...] Signed Date: 09/25/2024 09:15 ET Workstation ID: [id number] Transcribed By: Self Edit Transcribed Date: 09/25/2024 09:11 ET us Adriana Abebe OUTPATIENT SURGERY RN IMG XR PROCEDURES Final Res ult * (ABNORMAL) Comprehensive metabolic panel (06/30/2024 7:29 AM EDT) Sodium 141 133 - 145 mmol/L LAB CHEMISTRY METHOD 06/30/2024 8:42 AM [facility] Potassium 3.6 3.5 - 5.5 mmol/L LAB CHEMISTRY METHOD 06/30/2024 8:42 AM [facility] Chloride 106 96 - 110 mmol/L LAB CHEMISTRY METHOD 06/30/2024 8:42 AM [facility] CO2 26 21 - 32 mmol/L LAB CHEMISTRY METHOD 06/30/2024 8:42 AM [facility] Anion Gap 9 3 - 11 LAB CHEMISTRY METHOD 06/30/2024 8:42 AM [facility] Glucose 136(H) 70 - 100 mg/dL LAB CHEMISTRY METHOD 06/30/2024 8:42 AM [facility] BUN 13 5 - 25 mg/dL LAB CHEMISTRY METHOD 06/30/2024 8:42 AM [facility] Creatinine 0.88 0.70 - 1.30 mg/dL LAB CHEMISTRY METHOD 06/30/2024 8:42 AM [facility] eGFR 101 >=60 mL/min/1. 73m2 LAB CHEMISTRY METHOD 06/30/2024 8:42 AM [facility] Comment:Calculation based on the Chronic Kidney Disease Epidemiology Collaboration (CKD-EPI) equation refit without adjustment for race. BUN/Creatinine Ratio 14.8 LAB CHEMISTRY METHOD 06/30/2024 8:42 AM [facility] Calcium 8.9 8.5 - 10.5 mg/dL LAB CHEMISTRY METHOD 06/30/2024 8:42 AM EDT [facility] AST (SGOT) 59(H) 10 - 42 unit/L LAB CHEMISTRY METHOD 06/30/2024 8:42 AM EDT [facility] ALT (SGPT) 146(H) 10 - 60 unit/L LAB CHEMISTRY METHOD 06/30/2024 8:42 AM EDT [facility] Alkaline Phosphatase 87 42 - 121 unit/L LAB CHEMISTRY METHOD 06/30/2024 8:42 AM EDT [facility] Total Protein 7.0 6.0 - 8.0 g/dL LAB CHEMISTRY METHOD 06/30/2024 8:42 AM T [facility] Albumin 3.8 3.2 - 5.0 g/dL LAB CHEMISTRY METHOD 06/30/2024 8:42 AM [facility] Total Bilirubin 2.0(H) 0.0 - 1.4 mg/dL LAB CHEMISTRY METHOD 06/30/2024 8:42 AM EDT [facility] Comment:Results verified by repeat testing Blood Venous blood specimen / Unknown Venipuncture / Unknown 06/30/2024 7:29 AM EDT 06/30/2024 7:53 AM EDT Marco Ham MD LAB BLOOD ORDERABLES Gerda walton Result [facility] [address] [place] [address], from Last 3 Months or Most Recently Relevant to Health Maintenance Insurance [facility] MEDICARE Member Subscriber Plan / Payer (Ef fective 2016-Present) Name:TOM PITTS Relation to Subscriber:Self Name:Tom Pitts Payer ID:[id number] Group ID:[id number] Type:Not on file Address: [address] [phone] Care Teams Rock Cutter Relationship Specialty Start Date End Date Physician, No Pcp PCP - General 03/10/24
--- OUTSIDE RECORDS SUMMARY | 2024-11-04 07:56 | XMS_ITS | Clinical Summary ---
Author Organization [facility] Address [address] [place] [address] Care Team Providers Care Central Office Maintainer Name Role Phone DylanbrittJacob NP Primary Care Provider [phone] Source Comments PLEASE NOTE, if this patient [...] Plan of Treatment Not on file Insurance [place] Care Teams Central Office Maintainer Relationship Specialty Start Date End Date Jacob Bourgeois NP [address] [place] [address] PCP - General 01/15/18
--- OUTSIDE RECORDS SUMMARY | 2024-11-04 07:56 | XMS_ITS | Clinical Summary ---
Author Organization [facility] Address [address] [place] [address] Care Team Providers Care Operations Leader Name Role Phone Unavailable Primary Care Provider [...]
== END ==
LOC: HO.SL 19:51
PROVIDERS: PCP Internal Medicine; Visit Provider Nurse Practitioner Family
DX: R40.0 Somnolence (principal); G47.34 Idiopathic sleep related nonobstructive alveolar hypoventilation; G47.33 Obstructive sleep apnea (adult) (pediatric); R06.83 Snoring
CPT/HCPCS: 95810

== ENCOUNTER 2024-11-03 20:30 | Outpatient (REF) | payer OTHER, SELFPAY ==
--- OUTSIDE RECORDS SUMMARY | 2024-11-03 21:05 | XMS_ITS | Clinical Summary ---
Author Organization [facility] Address [address] [place] [address] Care Team Providers Care Groundskeeping Yardman Name Role Phone DylanbrittJacob NP Primary Care Provider [phone] Source Comments PLEASE NOTE, if this patient [...] Plan of Treatment Not on file [place] Care Teams Groundskeeping Yardman Relationship Specialty Start Date End Date Jacob Bourgeois NP [address] [place] [address] PCP - General 01/15/18
--- OUTSIDE RECORDS SUMMARY | 2024-11-03 21:05 | XMS_ITS | Clinical Summary ---
Author Organization [facility] Address [address] [place] [address] Care Team Providers Care Transport Corps Officer Name Role Phone Unavailable Primary Care Provider [...]
--- OUTSIDE RECORDS SUMMARY | 2024-11-03 21:05 | XMS_ITS | Clinical Summary ---
Author Organization [facility] Address [address] [place] [address] Phone Care Team Providers Care Network Operations Analyst Name Role Phone Physician, No Pcp Primary [...] Encounters Date Type Department Care Team Description 09/25/2024 8:51 AM EDT - 09/25/2024 11:59 PM EDT Hospital Encounter [facility] Xray [address] [place] [address] Dyspnea, unspecified Discharge Disposition: Home or Self Care from Last 3 Months Medical History Medical History Date Comments Diabetes mellitus ([facility]/HCC V24, [facility] V28) Hypertension Social History Tobacco Use Types [...] 12/10/1986 Pneumococcal Vaccine: 50+ Years (1 of 1 - PCV) 12/10/2017 Zoster Vaccines (1 of 2) 12/10/2017 Cholesterol Screening (Lipid Panel) 02/10/2022 Colorectal Cancer Screening: Colonoscopy 02/10/2022 HIV Screening 02/10/2022 Hepatitis C Screening 02/10/2022 Medicare Annual Wellness Visit 02/10/2022 Social Influencers of Health Screening 02/10/2022 COVID-19 Vaccine ( season) 2023 02/15/2021, 07/04/2020, 06/12/2020 Depression Screening 03/10/2024 Influenza Vaccine (#1) 2024 4, 02/07/2023, 12/05/2020, Additional history exists DTaP,Tdap,and Td [...] Procedure Name Priority Date/Time Associated Diagnosis Comments XR CHEST 2 VIEWS Routine 09/25/2024 9:01 AM EDT Dyspnea, unspecified COMPREHENSIVE METABOLIC PANEL STAT 06/30/2024 7:29 AM EDT from Last 3 Months or Most Recently Relevant to Health Maintenance Results * XR Chest 2 Views (09/25/2024 9:01 AM EDT) Anatomical Region Laterality Modality Body Radiographic Lay ging 09/25/2024 9:11 AM EDT Impressions 09/25/2024 9:15 AM EDT Indistinct right hilum with elevation of the minor fissure and vague density in the anterior segment of the right upper lobe. Possibilities include some atelectasis or pneumonia. However, an underlying central airway process cannot be excluded. Consider optimal medical management and follow-up CT with IV contrast if there is incomplete resolution. -------- FINAL REPORT -------- Dictated By: Kp Grace Dictated Date: 09/25/2024 09:11 ET Assigned Physician: Kp Grace Reviewed and Electronically Signed By: Kp Grace Signed Date: 09/25/2024 09:15 ET Workstation ID: [id number] Transcribed By: Self Edit Transcribed Date: 09/25/2024 09:11 ET Narrative 09/25/2024 9:15 AM EDT EXAMINATION: CHEST CLINICAL INFORMATION: Dyspnea COMPARISON: Frontal view 06/30/24 TECHNIQUE: 2 views of the chest FINDINGS: The cardiac size is within normal limits. The central vessels are prominent. The right hilum is mildly indistinct. There is elevation of the minor fissure and there is some vague opacity in the anterior segment of the right upper lobe. There are a few minor linear opacities in the right lower lung. There is no pneumothorax. There is relative elevation of right hemidiaphragm. No suspicious focal bony lesion Procedure Note Kp Grace MD - 09/25/2024 EXAMINATION: CHEST CLINICAL INFORMATION: Dyspnea COMPARISON: Frontal view 06/30/24 TECHNIQUE: 2 views of the chest FINDINGS: The cardiac size is within normal limits. The central vessels areprominent. The right hilum is mildly indistinct. There is elevation of theminor fissure and there is some vague opacity in the anterior segment ofthe right upper lobe. There are a few minor linear opacities in the rightlower lung. There is no pneumothorax. There is relative elevation of right hemidiaphragm. No suspicious focal bony lesion IMPRESSION: Indistinct right hilum with elevation of the minor fissure and vaguedensity in the anterior segment of the right upper lobe. Possibilitiesinclude some atelectasis or pneumonia. However, an underlying centralairway process cannot be excluded. Consider optimal medical management and follow-up CT with IV contrast ifthere is incomplete resolution. -------- FINAL REPORT -------- Dictated By: Kp Grace Dictated Date: 09/25/2024 09:11 ET Assigned Physician: Kp Grace Reviewed and Electronically Signed By: Kp Grace Signed Date: 09/25/2024 09:15 ET Workstation ID: [id number] Transcribed By: Self Edit Transcribed Date: 09/25/2024 09:11 ET us Adriana Abebe WATER TESTER IMG XR PROCEDURES Final Res ult * (ABNORMAL) Comprehensive metabolic panel (06/30/2024 7:29 AM EDT) Sodium 141 133 - 145 mmol/L LAB CHEMISTRY METHOD 06/30/2024 8:42 AM [facility] Potassium 3.6 3.5 - 5.5 mmol/L LAB CHEMISTRY METHOD 06/30/2024 8:42 AM [facility] Chloride 106 96 - 110 mmol/L LAB CHEMISTRY METHOD 06/30/2024 8:42 AM [facility] CO2 26 21 - 32 mmol/L LAB CHEMISTRY METHOD 06/30/2024 8:42 AM [facility] Anion Gap 9 3 - 11 LAB CHEMISTRY METHOD 06/30/2024 8:42 AM [facility] Glucose 136(H) 70 - 100 mg/dL LAB CHEMISTRY METHOD 06/30/2024 8:42 AM [facility] BUN 13 5 - 25 mg/dL LAB CHEMISTRY METHOD 06/30/2024 8:42 AM [facility] Creatinine 0.88 0.70 - 1.30 mg/dL LAB CHEMISTRY METHOD 06/30/2024 8:42 AM [facility] eGFR 101 >=60 mL/min/1. 73m2 LAB CHEMISTRY METHOD 06/30/2024 8:42 AM [facility] Comment:Calculation based on the Chronic Kidney Disease Epidemiology Collaboration (CKD-EPI) equation refit without adjustment for race. BUN/Creatinine Ratio 14.8 LAB CHEMISTRY METHOD 06/30/2024 8:42 AM [facility] Calcium 8.9 8.5 - 10.5 mg/dL LAB CHEMISTRY METHOD 06/30/2024 8:42 AM EDT [facility] AST (SGOT) 59(H) 10 - 42 unit/L LAB CHEMISTRY METHOD 06/30/2024 8:42 AM EDT [facility] ALT (SGPT) 146(H) 10 - 60 unit/L LAB CHEMISTRY METHOD 06/30/2024 8:42 AM EDT [facility] Alkaline Phosphatase 87 42 - 121 unit/L LAB CHEMISTRY METHOD 06/30/2024 8:42 AM EDT [facility] Total Protein 7.0 6.0 - 8.0 g/dL LAB CHEMISTRY METHOD 06/30/2024 8:42 AM T [facility] Albumin 3.8 3.2 - 5.0 g/dL LAB CHEMISTRY METHOD 06/30/2024 8:42 AM [facility] Total Bilirubin 2.0(H) 0.0 - 1.4 mg/dL LAB CHEMISTRY METHOD 06/30/2024 8:42 AM EDT [facility] Comment:Results verified by repeat testing Blood Venous blood specimen / Unknown Venipuncture / Unknown 06/30/2024 7:29 AM EDT 06/30/2024 7:53 AM EDT Marco Ham MD LAB BLOOD ORDERABLES Gerda walton Result [facility] [address] [place] [address], from Last 3 Months or Most Recently Relevant to Health Maintenance Insurance [facility] MEDICARE Member Subscriber Plan / Payer (Ef fective 2016-Present) Name:TOM PITTS Relation to Subscriber:Self Name:Tom Pitts Payer ID:[id number] Group ID:[id number] Type:Not on file Address: [address] [phone] Care Teams Network Operations Analyst Relationship Specialty Start Date End Date Physician, No Pcp PCP - General 03/10/24
== END 2024-11-03 20:31 | disposition home or self-care (01) ==
LOC: HO.CT 20:30
PROVIDERS: PCP Internal Medicine; Visit Provider Nurse Practitioner Family
DX: Z13.89 Encounter for screening for other disorder (principal)

== ENCOUNTER → 2024-11-03 21:02 | Outpatient (BNV) | payer OTHER, SELFPAY | PROVIDERS: PCP Internal Medicine; Visit Provider Internal Medicine | DX: G47.33 Obstructive sleep apnea (adult) (pediatric) (principal) | CPT/HCPCS: 95810 ==

== ENCOUNTER 2024-11-06 08:53 | Outpatient (REF) | payer OTHER, SELFPAY ==
--- NOTE | ~2024-11-06 | CT_ITS ---
CLINICAL HISTORY: R93.89 - Abnormal findings on diagnostic imaging of other specified body... CT chest without contrast Comparison: None provided Findings: The thyroid gland appears normal. There is no mediastinal, hilar, or axillary lymphadenopathy. Heart is normal in size. There is no pericardial effusion. Mild ground-glass opacities are seen in bilateral upper lobes, right middle lobe, and left lower lobe. 5 mm right middle lobe nodule is seen adjacent to the minor fissure (axial image 26 of series 3); no follow-up is needed. Mild subsegmental atelectasis is seen with adjacent thoracic osteophytes in the medial right lower lobe. Limited examination of the upper abdomen demonstrates a small calcified splenic granuloma. No acute osseous abnormality is identified. No aggressive lytic or blastic lesion is seen. IMPRESSION: 1. Mild ground-glass opacities in bilateral upper lobes, right middle lobe, and left lower lobe consistent with a mild pneumonitis. This document has been electronically signed by: Miriam Lindsay on 11/10/2024 09:17:11
--- OUTSIDE RECORDS SUMMARY | 2024-11-06 08:57 | XMS_ITS | Clinical Summary ---
Author Organization [facility] Address [address] [place] [address] Care Team Providers Care Polishing Wheel Setter Name Role Phone DylanbrittJacob NP Primary Care Provider [phone] Source Comments PLEASE NOTE, if this patient [...] Plan of Treatment Not on file [place] Care Teams Polishing Wheel Setter Relationship Specialty Start Date End Date Jacob Bourgeois NP [address] [place] [address] PCP - General 01/15/18
--- OUTSIDE RECORDS SUMMARY | 2024-11-06 08:57 | XMS_ITS | Clinical Summary ---
Author Organization [facility] Address [address] [place] [address] Phone Care Team Providers Care Rotary Envelope Machine Operator Name Role Phone Physician, No Pcp Primary [...] - 09/25/2024 11:59 PM EDT Hospital Encounter [facility] Xray [address] [place] [address] Dyspnea, unspecified Discharge Disposition: Home or Self Care from Last 3 Months Medical History Medical History Date Comments Diabetes mellitus ([facility]/HCC V24, [facility] V28) Hypertension Social History Tobacco [...] Signed Date: 09/25/2024 09:15 ET Workstation ID: [id number] Transcribed By: Self Edit Transcribed Date: 09/25/2024 [...] Signed Date: 09/25/2024 09:15 ET Workstation ID: [id number] Transcribed By: Self Edit Transcribed Date: 09/25/2024 09:11 ET us Adriana Abebe HUSKER OPERATOR IMG XR PROCEDURES Final Res ult * (ABNORMAL) Comprehensive metabolic panel (06/30/2024 7:29 AM EDT) Sodium 141 133 - 145 mmol/L LAB CHEMISTRY METHOD 06/30/2024 8:42 AM [facility] Potassium 3.6 3.5 - 5.5 mmol/L LAB CHEMISTRY METHOD 06/30/2024 8:42 AM [facility] Chloride 106 96 - 110 mmol/L LAB CHEMISTRY METHOD 06/30/2024 8:42 AM [facility] CO2 26 21 - 32 mmol/L LAB CHEMISTRY METHOD 06/30/2024 8:42 AM [facility] Anion Gap 9 3 - 11 LAB CHEMISTRY METHOD 06/30/2024 8:42 AM [facility] Glucose 136(H) 70 - 100 mg/dL LAB CHEMISTRY METHOD 06/30/2024 8:42 AM [facility] BUN 13 5 - 25 mg/dL LAB CHEMISTRY METHOD 06/30/2024 8:42 AM [facility] Creatinine 0.88 0.70 - 1.30 mg/dL LAB CHEMISTRY METHOD 06/30/2024 8:42 AM [facility] eGFR 101 >=60 mL/min/1. 73m2 LAB CHEMISTRY METHOD 06/30/2024 8:42 AM [facility] Comment:Calculation based on the Chronic Kidney Disease Epidemiology Collaboration (CKD-EPI) equation refit without adjustment for race. BUN/Creatinine Ratio 14.8 LAB CHEMISTRY METHOD 06/30/2024 8:42 AM [facility] Calcium 8.9 8.5 - 10.5 mg/dL LAB CHEMISTRY METHOD 06/30/2024 8:42 AM EDT [facility] AST (SGOT) 59(H) 10 - 42 unit/L LAB CHEMISTRY METHOD 06/30/2024 8:42 AM EDT [facility] ALT (SGPT) 146(H) 10 - 60 unit/L LAB CHEMISTRY METHOD 06/30/2024 8:42 AM EDT [facility] Alkaline Phosphatase 87 42 - 121 unit/L LAB CHEMISTRY METHOD 06/30/2024 8:42 AM EDT [facility] Total Protein 7.0 6.0 - 8.0 g/dL LAB CHEMISTRY METHOD 06/30/2024 8:42 AM T [facility] Albumin 3.8 3.2 - 5.0 g/dL LAB CHEMISTRY METHOD 06/30/2024 8:42 AM [facility] Total Bilirubin 2.0(H) 0.0 - 1.4 mg/dL LAB CHEMISTRY METHOD 06/30/2024 8:42 AM EDT [facility] Comment:Results verified by repeat testing Blood Venous blood specimen / Unknown Venipuncture / Unknown 06/30/2024 7:29 AM EDT 06/30/2024 7:53 AM EDT Marco Ham MD LAB BLOOD ORDERABLES Gerda walton Result [facility] [address] [place] [address], from Last 3 Months or Most Recently Relevant to Health Maintenance Insurance [facility] MEDICARE Member Subscriber Plan / Payer (Ef fective 2016-Present) Name:TOM KUMAR Relation to Subscriber:Self Name:Tom Kumar Payer ID:[id number] Group ID:[id number] Type:Not on file Address: [address] [phone] Care Teams Rotary Envelope Machine Operator Relationship Specialty Start Date End Date Physician, No Pcp PCP - General 03/10/24
--- OUTSIDE RECORDS SUMMARY | 2024-11-06 08:57 | XMS_ITS | Clinical Summary ---
Author Organization [facility] Address [address] [place] [address] Care Team Providers Care Configuration Developer Name Role Phone Unavailable Primary Care Provider [...]
== END 2024-11-06 08:54 | disposition home or self-care (01) ==
LOC: HO.CT 08:53
PROVIDERS: PCP Internal Medicine; Visit Provider Nurse Practitioner Family
DX: R93.89 Abnormal findings on diagnostic imaging of other specified body structures (principal)
CPT/HCPCS: 71250

== ENCOUNTER → 2024-11-06 08:55 | Outpatient (BNV) | payer OTHER, SELFPAY | PROVIDERS: PCP Internal Medicine; Visit Provider Radiology Vascular & Interventional Radiology | DX: J98.11 Atelectasis (principal) | CPT/HCPCS: 71250 ==

== ENCOUNTER 2024-11-12 16:04 | Outpatient (REF) | payer OTHER, SELFPAY ==
[2024-11-12 17:14] LABS: Hematocrit 43.0 % (42.0-52.0); Hemoglobin 15.6 g/dl (14.0-18.0); Mean Corpuscular HGB Conc 36.3 g/dl (31.0-36.0); Mean Corpuscular Hemoglobin 30.9 pg (27.0-33.0); Mean Corpuscular Volume 85.1 fL (80.0-98.0); NRBC Abs Auto 0.000 X10*3/uL (0.0-0.012); NRBC Pct Auto 0.0 /100WBC (0.0-0.2); Platelet Count 173 X10*3/uL (160-400); Red Blood Count 5.05 X10*6/uL (4.60-5.80)
[2024-11-12 17:42] LABS: WBC ABN SCTR FOR CBC 1; White Blood Count 9.4 X10*3/uL (4.8-10.8)
[2024-11-12 18:09] LABS: Band Neutrophils Percent 1 % (3-5); Eosinophils Absolute Manual 0.3 X10*3/uL (0.0-0.4); Eosinophils Percent Manual 3 % (0-4); Lymphocytes Absolute Manual 2.8 X10*3/uL (1.2-4.9); Lymphocytes Percent Manual 30 % (20-40); Monocytes Absolute Manual 0.7 X10*3/uL (0.1-1.2); Monocytes Percent Manual 7 % (2-11); Neutrophils Absolute Manual 5.6 X10*3/uL (2.0-8.3); Neutrophils Percent Manual 59 % (45-73)
[2024-11-12 18:10] LABS: RBC Morphology NORMAL
[2024-11-12 18:16] LABS: Alanine Aminotransferase 176 U/L (0-40); Albumin Level 3.9 g/dL (3.5-5.0); Alkaline Phosphatase 91 U/L (39-117); Anion Gap 13 (12-20); Aspartate Amino Transferase 109 U/L (5-37); Blood Urea Nitrogen 7 mg/dL (9-16); Calcium 8.6 mg/dL (8.4-10.2); Carbon Dioxide 26 mmol/L (22-29); Chloride 105 mmol/L (96-108); Estimated Glomerular Filt Rate > 60; Potassium 3.9 mmol/L (3.3-5.1); Sodium 140 mmol/L (135-145); Total Protein 6.8 g/dL (6.5-8.0)
== END 2024-11-12 16:05 | disposition home or self-care (01) ==
LOC: HO.LAB 16:04
PROVIDERS: PCP Internal Medicine; Visit Provider Nurse Practitioner
DX: Z01.818 Encounter for other preprocedural examination (principal); Z12.11 Encounter for screening for malignant neoplasm of colon; D12.6 Benign neoplasm of colon, unspecified; R11.2 Nausea with vomiting, unspecified; Z98.890 Other specified postprocedural states; Z79.899 Other long term (current) drug therapy
CPT/HCPCS: 36415; 80053; 85007; 85025; 85027; 99202

== ENCOUNTER 2024-11-12 16:04 | Outpatient (AMB) | payer OTHER, SELFPAY ==
--- NOTE | 2024-11-12 16:06 | A.OFFVIS_ITS ---
Vital Signs 11/12/24 16:09 Height 5 ft 9 in Weight 235 lb 14.314 oz BMI 34.8 BP 131/80 Blood Pressure Location Lt brachial Position Sitting Pulse 105 H Intake Visit Reasons: [place] screening r/s 08/17/24 Intake Note: Patient in office today for colonoscopy screening. CC: Patient reports that he's had a dry cough for about a year worst when he is in cold places or drink something cold. Denies other GI symptoms or concerns. Cleaners Required: No Accompanied by: Self / Same As Patient Allergies lisinopril Allergy (Intermediate, Verified 11/12/24 16:14) Cough acetaminophen (Percocet) Allergy (Mild, Verified 11/12/24 16:14) rash oxycodone (From Percocet) Allergy (Mild, Verified 11/12/24 16:14) rash HPI HPI [place] screening r/s 08/17/24: Details: 58-year-old male here for preprocedural meeting to discuss a screening colonoscopy. He is referred by Magali Reyna. PMX Obesity Hypertension High cholesterol Diabetes History of tubular adenoma Dyspnea on exertion and nocturnal hypoxemia Erectile dysfunction Memory loss DENT Post-laminectomy syndrome * SURGICAL HISTORY Colonoscopy= -2018 TA Left ankle fracture with repair Lumbar fusion Bilateral knee arthroscopies * ALLERGIES Oxycodone Lisinopril ? Tylenol * Natural Dentist LABS: None recent TODAY'S VISIT [facility], [facility] Medical History Hyperlipidemia LDL goal <70 Physical exam Adult general medical exam COVID-19 Systemic viral illness Upper respiratory tract infection Sore throat (viral) Essential hypertension Postlaminectomy syndrome Abnormal barium swallow Dyslipidemia Transaminitis Right knee pain Obese Lumbar degenerative disc disease Surgical History History of colonoscopy Fusion of lumbar spine History of fracture of left ankle History of lumbar fusion History of arthroscopy of left knee Hx of arthroscopy of right knee Family History Father Diabetes Mother Diabetes Hypertension Asthma Social History Housing: House Alcohol intake: former Patient Tobacco Use Status: Never used Tobacco e-Cigarette/Vaping Use: Never Used Second Hand Smoke Exposure: No service: No Current occupational status: employed Current occupational exposures/hazards: No Cognitive needs: No Hearing needs: No Vision needs: No Review of Systems Const Denies fatigue, Denies fever(s), Denies night sweats, Denies poor appetite and Denies weight loss ENT Reports Normal hearing present, Denies dental pain, Denies dysphagia, Denies hearing loss, Denies mouth pain, Denies odynophagia, Denies throat swelling, Denies tongue swelling and Reports other (Dentition adequate) Card Reports no additional complaints Resp Reports no additional complaints GI Details: Denies abdominal pain, Denies melena, Denies bloating, Denies hematochezia, Denies constipation, Denies GI cramping, Denies dysphagia, Denies excessive flatus, Denies early satiety, Denies heartburn, Denies diarrhea, Denies nausea, Denies odynophagia, Denies vomiting and Denies hematemesis Skin/Breast Denies pruritus, Denies lesions, Denies rash and Denies jaundice Neuro Reports Normal hearing present and Denies Abnormal speech present Endo Denies fatigue Aller/Immun Denies throat swelling and Denies tongue swelling Physical Exam Const General: cooperative, no acute distress, well developed and well groomed Nutritional Appearance: well nourished and overweight Orientation/consciousness: oriented to person, oriented to place and oriented to time Limitations: No language barrier HEENT Head: Yes normocephalic and Yes atraumatic Eyes General: appearance normal, both eyes and all related structures Pupils: Equal, round and reactive pupils present Neck Neck: Yes normal visual inspection and Yes no lymphadenopathy Thyroid: Thyroid normal Resp Effort & Inspection: normal respiratory effort and able to speak in complete sentences Auscultation: clear to auscultation bilaterally Cardio Rate: regular rate Rhythm: regular rhythm Heart sounds: Normal, physiologic split S2 sound present Peripheral pulses: radial pulses present and posterior tibial pulses present GI Inspection: No distended, No Abdominal panniculus present and Yes obesity Palpation (GI): Soft to palpation, nontender, no guarding, not rigid and No hepatosplenomegaly present Percussion: Yes normal to percussion Auscultation: normal bowel sounds Rectal Exam - Male: Yes deferred Skin General skin exam: no rashes or lesions noted, turgor normal, skin not dry, no jaundice, No spider nevi and no striae Rashes: no rashes Nails: normal Neuro General: oriented to person, oriented to place and oriented to time Cranial nerves: Yes Equal, round and reactive pupils present and Yes Normal hearing present Speech: No Abnormal speech present Extrem General: Yes normal to inspection, No clubbing, No cyanosis and No edema Psych Appearance: grossly normal and well kempt Mental Status: mental status grossly normal Speech and movement: Normal speech and movement present Affect: normal affect Attitude: cooperative Thought process: Normal thought process present and not confabulating Thought content: Normal thought content present Insight: Good insight present (Psych) Judgement: Good judgement present (Psych) Assessment & Plan Assessment & Plan (1) Tubular adenoma of colon: Code(s): D12.6 - Benign neoplasm of colon, unspecified Category: Medical (2) Pre-op examination: Code(s): Z01.818 - Encounter for other preprocedural examination Category: Medical (3) PONV (postoperative nausea and vomiting): Code(s): R11.2 - Nausea with vomiting, unspecified; Z98.890 - Other specified postprocedural states Category: Medical Plan Chart says he had a colonoscopy in [address] Ponce this had it least 1 TA, I can not find the record however. He denies any bowel or upper GI problems. He denies any cardiac or respiratory problems. There are no prior problems with anesthesia or sedation except PONV There are no infectious disease problems. FHX: He is not well acquainted with the father side of the family but there is no other known family history of colon cancer or polyps. Orders: Orders Comprehensive Met. Panel Today D12.6 - Benign neoplasm of colon, unspecified, Z01.818 - Encounter for other preprocedural examination Complete Blood Count Auto Diff Today D12.6 - Benign neoplasm of colon, unspecified, Z01.818 - Encounter for other preprocedural examination Referrals GI Procedure Notification D12.6 - Benign neoplasm of colon, unspecified, Z01.818 - Encounter for other preprocedural examination Medications: New peg 3350-electrolytes 236-22.74-6.74 -5.86 gram (Golytely) until fecal effluent is clear; do not exceed a total volume of 2,000 mL 240 mL PO Q10M 4,000 mL 0RF 1 day Z12.11 - Encounter for screening for malignant neoplasm of colon bisacodyl (Dulcolax (bisacodyl)) 10 mg (2 x 5 mg) PO BEDTIME 4 tabs 0RF 2 days Coding Level of Care Code New Pt Level 3 (19345) Diagnoses Tubular adenoma of colon D12.6 Pre-op examination Z01.818 PONV (postoperative nausea and vomiting) R11.2; Z98.890
--- OUTSIDE RECORDS SUMMARY | 2024-11-12 16:08 | XMS_ITS | Clinical Summary ---
Author Organization [facility] Address [address] [place] [address] Care Team Providers Care Recreation Therapist Name Role Phone Unavailable Primary Care Provider [...]
--- OUTSIDE RECORDS SUMMARY | 2024-11-12 16:08 | XMS_ITS | Clinical Summary ---
Author Organization [facility] Address [address] [place] [address] Care Team Providers Care Civil Drafter Name Role Phone DylanbrittJacob NP Primary Care Provider [phone] Source Comments PLEASE NOTE, if this patient [...] Plan of Treatment Not on file [place] Care Teams Civil Drafter Relationship Specialty Start Date End Date Jacob Bourgeois NP [address] [place] [address] PCP - General 01/15/18
--- OUTSIDE RECORDS SUMMARY | 2024-11-12 16:08 | XMS_ITS | Clinical Summary ---
Author Organization [facility] Address [address] [place] [address] Phone Care Team Providers Care Magnet Placer Name Role Phone Physician, No Pcp Primary [...] - 09/25/2024 11:59 PM EDT Hospital Encounter [facility] Xray [address] [place] [address] Dyspnea, unspecified Discharge Disposition: Home or Self Care from Last 3 Months Medical History Medical History Date Comments Diabetes mellitus ([facility] V24, [facility] V28) Hypertension Social History Tobacco Use Types [...] 02/10/2022 Social Influencers of Health Screening 02/10/2022 Depression Screening 03/10/2024 COVID-19 Vaccine ( season) 2024 02/15/2021, 07/04/2020, 06/12/2020 Influenza Vaccine (#1) 2024 4, 02/07/2023, 12/05/2020, [...] Signed Date: 09/25/2024 09:15 ET Workstation ID: [id number] Transcribed By: Self Edit Transcribed Date: 09/25/2024 [...] Signed Date: 09/25/2024 09:15 ET Workstation ID: [id number] Transcribed By: Self Edit Transcribed Date: 09/25/2024 09:11 ET us Adriana Abebe SR. PRICING ANALYST IMG XR PROCEDURES Final Res ult * (ABNORMAL) Comprehensive metabolic panel (06/30/2024 7:29 AM EDT) Sodium 141 133 - 145 mmol/L LAB CHEMISTRY METHOD 06/30/2024 8:42 AM [facility] Potassium 3.6 3.5 - 5.5 mmol/L LAB CHEMISTRY METHOD 06/30/2024 8:42 AM [facility] Chloride 106 96 - 110 mmol/L LAB CHEMISTRY METHOD 06/30/2024 8:42 AM [facility] CO2 26 21 - 32 mmol/L LAB CHEMISTRY METHOD 06/30/2024 8:42 AM [facility] Anion Gap 9 3 - 11 LAB CHEMISTRY METHOD 06/30/2024 8:42 AM [facility] Glucose 136(H) 70 - 100 mg/dL LAB CHEMISTRY METHOD 06/30/2024 8:42 AM [facility] BUN 13 5 - 25 mg/dL LAB CHEMISTRY METHOD 06/30/2024 8:42 AM [facility] Creatinine 0.88 0.70 - 1.30 mg/dL LAB CHEMISTRY METHOD 06/30/2024 8:42 AM [facility] eGFR 101 >=60 mL/min/1. 73m2 LAB CHEMISTRY METHOD 06/30/2024 8:42 AM [facility] Comment:Calculation based on the Chronic Kidney Disease Epidemiology Collaboration (CKD-EPI) equation refit without adjustment for race. BUN/Creatinine Ratio 14.8 LAB CHEMISTRY METHOD 06/30/2024 8:42 AM [facility] Calcium 8.9 8.5 - 10.5 mg/dL LAB CHEMISTRY METHOD 06/30/2024 8:42 AM EDT [facility] AST (SGOT) 59(H) 10 - 42 unit/L LAB CHEMISTRY METHOD 06/30/2024 8:42 AM EDT [facility] ALT (SGPT) 146(H) 10 - 60 unit/L LAB CHEMISTRY METHOD 06/30/2024 8:42 AM EDT [facility] Alkaline Phosphatase 87 42 - 121 unit/L LAB CHEMISTRY METHOD 06/30/2024 8:42 AM EDT [facility] Total Protein 7.0 6.0 - 8.0 g/dL LAB CHEMISTRY METHOD 06/30/2024 8:42 AM T [facility] Albumin 3.8 3.2 - 5.0 g/dL LAB CHEMISTRY METHOD 06/30/2024 8:42 AM [facility] Total Bilirubin 2.0(H) 0.0 - 1.4 mg/dL LAB CHEMISTRY METHOD 06/30/2024 8:42 AM EDT [facility] Comment:Results verified by repeat testing Blood Venous blood specimen / Unknown Venipuncture / Unknown 06/30/2024 7:29 AM EDT 06/30/2024 7:53 AM EDT Marco Ham MD LAB BLOOD ORDERABLES Gerda walton Result [facility] [address] [place] [address], from Last 3 Months or Most Recently Relevant to Health Maintenance Insurance [facility] MEDICARE Member Subscriber Plan / Payer (Ef fective 2016-Present) Name:TOM PITTS Relation to Subscriber:Self Name:Tom Pitts Payer ID:[id number] Group ID:[id number] Type:Not on file Address: [address] [address] Care Teams Magnet Placer Relationship Specialty Start Date End Date Physician, No Pcp PCP - General 03/10/24
[2024-11-12 16:09] VITALS: BP 131/80; PULSE 105; BMI 34.8
== END 2024-11-12 16:26 | disposition home or self-care (01) ==
LOC: HO.HGI 16:05
PROVIDERS: PCP Internal Medicine; Visit Provider Nurse Practitioner
DX: Z01.818 Encounter for other preprocedural examination (principal); Z12.11 Encounter for screening for malignant neoplasm of colon; Z86.0101 Personal history of adenomatous and serrated colon polyps; R11.2 Nausea with vomiting, unspecified; Z98.890 Other specified postprocedural states
CPT/HCPCS: 99203

== ENCOUNTER 2024-11-23 15:45 | Outpatient (AMB) | payer OTHER, SELFPAY ==
--- NOTE | 2024-11-23 15:47 | MHC.OFFVIS ---
Vital Signs 11/23/24 15:48 Height 5 ft 9 in Weight 235 lb BMI 34.7 BP 134/76 Blood Pressure Location Lt brachial Position Sitting Pulse 109 H Pulse Source Pulse Oximeter Pulse Oximetry (%) 98 Oxygen Delivery Method Room Air Intake Visit Reasons: hypoventilation Flotation Operator Required: No Student Officer: Student Officer offered & declined Accompanied by: Self / Same As Patient Allergies lisinopril Allergy (Intermediate, Verified 11/23/24 15:51) Cough acetaminophen (Percocet) Allergy (Mild, Verified 11/23/24 15:51) rash oxycodone (From Percocet) Allergy (Mild, Verified 11/23/24 15:51) rash Medication List - Last Reconciled 11/23/24 by Tia Morrow LPN alcohol swabs (Alcohol Prep Pads) 1 pad topical DAILY 90 days atorvastatin 10 mg PO BEDTIME 90 days bisacodyl (Dulcolax (bisacodyl)) 10 mg (2 x 5 mg) PO BEDTIME 2 days blood pressure monitor (Blood Pressure Kit) As directed blood sugar diagnostic (GameAccount Networkuch Ultra Test strips) Use 1 test strpi once a day blood-glucose meter (Game[employer] Networkuch UltraMini kit) As directed cholecalciferol (vitamin D3) 25 mcg PO DAILY 90 days cyclobenzaprine 10 mg PO TID PRN 90 days hydrochlorothiazide 25 mg PO DAILY 90 days hydroxyzine pamoate 25 mg PO BID PRN lancets (Astonish ResultsTouch Delica Plus Lancet) Use 1 lancet once a day lancets USe 1 lancet once a day levocetirizine 5 mg PO DAILY PRN 90 days losartan 25 mg PO DAILY 30 days metformin 500 mg PO DAILY 90 days peg 3350-electrolytes 236-22.74-6.74 -5.86 gram (Golytely) 240 mL PO Q10M 1 day pregabalin 200 mg PO BID 30 days terbinafine HCl 250 mg PO DAILY 90 days HPI HPI hypoventilation: Details: Tom is a pleasant 58 year old male, never smoker, with underlying HTN. He was initially referred by PCP after recent home sleep study for DOT screening revealed mild nocturnal hypoxemia <88% for 7 minutes, possibly related to underlying respiratory disorder vs technical issues, negative for AROLDO. He also reported a dry cough that has developed over the last year as well as dyspnea on moderate exertion, both continue to persist. Denies wheezing or chest tightness or prior dx of asthma. PFT revealed no obstructive nor restrictive ventilatory defects identified. No significant response to bronchodilators noted. Lung volumes are low normal. The patient does have a decrease in the expiratory reserve volume secondary to an elevated BMI. The patient does have a low normal diffusing capacity. Today he presents to review chest CT and in lab PSG. He denies any visits to urgent care or hospitalizations related to respiratory distress. [facility] Medical History Hyperlipidemia LDL goal <70 Physical exam Adult general medical exam COVID-19 Systemic viral illness Upper respiratory tract infection Sore throat (viral) Essential hypertension Postlaminectomy syndrome Abnormal barium swallow Dyslipidemia Transaminitis Right knee pain Obese Lumbar degenerative disc disease Surgical History History of colonoscopy Fusion of lumbar spine History of fracture of left ankle History of lumbar fusion History of arthroscopy of left knee Hx of arthroscopy of right knee Family History Father Diabetes Mother Diabetes Hypertension Asthma Social History Housing: House Alcohol intake: former Patient Tobacco Use Status: Never used Tobacco e-Cigarette/Vaping Use: Never Used Second Hand Smoke Exposure: No service: No Current occupational status: employed Current occupational exposures/hazards: No Cognitive needs: No Hearing needs: No Vision needs: No Review of Systems Const Denies chills, Denies excessive sweating, Denies fever(s), Denies headache(s) and Denies night sweats Eyes Denies dry eyes, Denies irritation and Denies itchy eyes ENT Reports Normal hearing present, Denies headache(s), Denies nasal congestion, Denies nasal discharge, Denies post nasal drip and Denies sore throat Card Denies chest pain, Denies chest pain at rest, Denies chest pain with activity, Denies claudication, Denies leg edema, Denies orthopnea and Denies paroxysmal nocturnal dyspnea Resp Denies chest congestion, Denies excessive phlegm production, Denies pain on inspiration, Denies pain with cough, Denies stridor and Denies wheezing Musc Denies myalgias Neuro Reports Normal hearing present and Denies headache(s) Endo Denies excessive sweating Lemuel/Lymph Denies lymphadenopathy Aller/Immun Denies itchy eyes, Denies seasonal rhinorrhea and Denies wheezing Physical Exam Vital Signs: Last Vital Signs Pulse 109 H 11/23/24 15:48 BP 134/76 11/23/24 15:48 Pulse Ox 98 11/23/24 15:48 Oxygen Delivery Method Room Air 11/23/24 15:48 BMI result Body Mass Index 34.7 Const General: cooperative, healthy appearing, comfortable, no acute distress, well developed and alert Nutritional Appearance: obese Orientation/consciousness: patient oriented x3 Limitations: no limitations HEENT Head: Yes normal to inspection, Yes normocephalic and Yes atraumatic Ears: hearing grossly normal bilaterally and external ears normal Eyes General: appearance normal, both eyes and all related structures Eyelids: Yes eyelids normal Sclerae: sclerae normal EOM: EOMs intact bilaterally Neck Neck: Yes normal visual inspection and Yes no lymphadenopathy Lymphatic: no lymphadenopathy noted Chest Chest palpation & inspection: normal inspection of the chest Resp Effort & Inspection: normal respiratory effort, able to speak in complete sentences, no audible wheezes, no cough, no stridor, not tachypneic, no tripod positioning and no use of accessory muscles Auscultation: clear to auscultation bilaterally Cardio Jugular venous distension: no JVD Rate: regular rate Rhythm: regular rhythm Skin Other: warm, dry General skin exam: no rashes or lesions noted Neuro General: patient oriented x3 Cranial nerves: Yes Normal hearing present Cognition (Neuro): normal cognition Gait exam (Neuro): Normal gait present Extrem General: Yes normal to inspection, Yes capillary refill normal, Yes no clubbing, cyanosis or edema and Yes no pedal edema Psych Appearance: grossly normal and well kempt Speech and movement: Normal speech and movement present and Clear speech present Affect: normal affect Attitude: cooperative Thought process: Normal thought process present Thought content: Normal thought content present Insight: Good insight present (Psych) Judgement: Good judgement present (Psych) Results Reviewed Results Reviewed: [address] [address] [address] Scan Report Signed Patient: Tom Kumar MR#: [id number] : 1965 Acct:[id number] Age/Sex: 58 / M ADM Date: 11/06/24 Loc: HO.CT Attending Dr: Adriana Lomas NP Ordering Physician: Adriana Lomas NP Date of Service: 11/06/24 Procedure(s): CT chest wo IV con Accession Number(s): [id number] cc: Magali Reyna MD; Adriana Lomas NP~ Report Number: [id number]: Total DLP = 229.00 mGy-cm Reason for Exam: R93.89 - Abnormal findings on diagnostic imaging of other specified body... CLINICAL HISTORY: R93.89 - Abnormal findings on diagnostic imaging of other specified body... CT chest without contrast Comparison: None provided Findings: The thyroid gland appears normal. There is no mediastinal, hilar, or axillary lymphadenopathy. Heart is normal in size. There is no pericardial effusion. Mild ground-glass opacities are seen in bilateral upper lobes, right middle lobe, and left lower lobe. 5 mm right middle lobe nodule is seen adjacent to the minor fissure (axial image 26 of series 3); no follow-up is needed. Mild subsegmental atelectasis is seen with adjacent thoracic osteophytes in the medial right lower lobe. Limited examination of the upper abdomen demonstrates a small calcified splenic granuloma. No acute osseous abnormality is identified. No aggressive lytic or blastic lesion is seen. IMPRESSION: 1. Mild ground-glass opacities in bilateral upper lobes, right middle lobe, and left lower lobe consistent with a mild pneumonitis. This document has been electronically signed by: Miriam Lindsay on 11/10/2024 09:17:11 Dictated By: Miriam Lindsay MD Signed By: <Electronically signed by Miriam Lindsay MD in [place]> 11/10/24916 DD/ 6 TD/TT: 11/10/24916 Engraver Apprentice Decorative: Assessment & Plan Assessment & Plan (1) Cough: Code(s): R05 - Cough Category: Medical (2) Dyspnea on exertion: Code(s): R06.09 - Other forms of dyspnea Category: Medical Plan Reviewed in lab PSG which was negative and did not reveal any nocturnal hypoxemia, average 94%, lowest 89%. Reviewed chest CT which revealed mild ground-glass opacities in bilateral upper lobes, right middle lobe, and left lower lobe consistent with a mild pneumonitis. He denies any symptoms suggestive of infectious process. He denies any h/o autoimmune conditions or symptoms suggestive of CTD. He does report known exposure to mold present in bedroom for prolonged period of time that he recently cleaned a few weeks prior. Will send prednisone for pneumonitis component and send for HPS panel as well as RAST. He is aware to call if symptoms do not improve or seek emergent care if symptoms worsen. All questions were answered and patient is in agreement of plan. Will follow up in 3-4 weeks when he returns from vacation or sooner if needed. Orders: Orders Complete Blood Count Auto Diff 11/23/24 Z91.09 - Other allergy status, other than to drugs and biological substances Immunoglobulin E 11/23/24 Z91.09 - Other allergy status, other than to drugs and biological substances Resp Allergy Profile Region I 11/23/24 Z91.09 - Other allergy status, other than to drugs and biological substances Hypersensitive Pneumonitis Prf 11/23/24 R05 - Cough Medications: New prednisone see taper instructions 20 mg x 5 days, followed by 10 mg x 5 days 10 mg PO DIRECTED 15 tabs 0RF albuterol sulfate 90 mcg/actuation 2 puffs inhalation Q4-6H PRN 1 ea 0RF shortness of breath or wheezing Coding Level of Care Code Est Pt Level 4 (68493) Diagnoses Cough R05 Dyspnea on exertion R06.09
[2024-11-23 15:48] VITALS: BP 134/76; PULSE 109; O2SAT 98; BMI 34.7
--- OUTSIDE RECORDS SUMMARY | 2024-11-23 18:55 | XMS_ITS | Clinical Summary ---
Author Organization [facility] Address [address] [place] [address] Care Team Providers Care Repatcher Name Role Phone DylanbrittJacob NP Primary Care Provider [phone] Source Comments PLEASE NOTE, if this patient [...] Plan of Treatment Not on file Insurance [place] Care Teams Repatcher Relationship Specialty Start Date End Date Jacob Bourgeois NP [address] [place] [address] PCP - General 01/15/18
--- OUTSIDE RECORDS SUMMARY | 2024-11-23 18:55 | XMS_ITS | Clinical Summary ---
Author Organization [facility] Address [address] [place] [address] Phone Care Team Providers Care Passenger Barge Master Name Role Phone Physician, No Pcp Primary [...] - 09/25/2024 11:59 PM EDT Hospital Encounter [facility] Xray [address] [place] [address] Dyspnea, unspecified Discharge Disposition: Home or Self Care from Last 3 Months Medical History Medical History Date Comments Diabetes mellitus ([facility] V24, [facility] V28) Hypertension Social History Tobacco Use [...] Signed Date: 09/25/2024 09:15 ET Workstation ID: [id number] Transcribed By: Self Edit Transcribed Date: 09/25/2024 [...] Signed Date: 09/25/2024 09:15 ET Workstation ID: [id number] Transcribed By: Self Edit Transcribed Date: 09/25/2024 09:11 ET us Adriana Abebe AUTOMATIC LATHE SETTER IMG XR PROCEDURES Final Res ult * (ABNORMAL) Comprehensive metabolic panel (06/30/2024 7:29 AM EDT) Sodium 141 133 - 145 mmol/L LAB CHEMISTRY METHOD 06/30/2024 8:42 AM [facility] Potassium 3.6 3.5 - 5.5 mmol/L LAB CHEMISTRY METHOD 06/30/2024 8:42 AM [facility] Chloride 106 96 - 110 mmol/L LAB CHEMISTRY METHOD 06/30/2024 8:42 AM [facility] CO2 26 21 - 32 mmol/L LAB CHEMISTRY METHOD 06/30/2024 8:42 AM [facility] Anion Gap 9 3 - 11 LAB CHEMISTRY METHOD 06/30/2024 8:42 AM [facility] Glucose 136(H) 70 - 100 mg/dL LAB CHEMISTRY METHOD 06/30/2024 8:42 AM [facility] BUN 13 5 - 25 mg/dL LAB CHEMISTRY METHOD 06/30/2024 8:42 AM [facility] Creatinine 0.88 0.70 - 1.30 mg/dL LAB CHEMISTRY METHOD 06/30/2024 8:42 AM [facility] eGFR 101 >=60 mL/min/1. 73m2 LAB CHEMISTRY METHOD 06/30/2024 8:42 AM [facility] Comment:Calculation based on the Chronic Kidney Disease Epidemiology Collaboration (CKD-EPI) equation refit without adjustment for race. BUN/Creatinine Ratio 14.8 LAB CHEMISTRY METHOD 06/30/2024 8:42 AM [facility] Calcium 8.9 8.5 - 10.5 mg/dL LAB CHEMISTRY METHOD 06/30/2024 8:42 AM EDT [facility] AST (SGOT) 59(H) 10 - 42 unit/L LAB CHEMISTRY METHOD 06/30/2024 8:42 AM EDT [facility] ALT (SGPT) 146(H) 10 - 60 unit/L LAB CHEMISTRY METHOD 06/30/2024 8:42 AM EDT [facility] Alkaline Phosphatase 87 42 - 121 unit/L LAB CHEMISTRY METHOD 06/30/2024 8:42 AM EDT [facility] Total Protein 7.0 6.0 - 8.0 g/dL LAB CHEMISTRY METHOD 06/30/2024 8:42 AM T [facility] Albumin 3.8 3.2 - 5.0 g/dL LAB CHEMISTRY METHOD 06/30/2024 8:42 AM [facility] Total Bilirubin 2.0(H) 0.0 - 1.4 mg/dL LAB CHEMISTRY METHOD 06/30/2024 8:42 AM EDT [facility] Comment:Results verified by repeat testing Blood Venous blood specimen / Unknown Venipuncture / Unknown 06/30/2024 7:29 AM EDT 06/30/2024 7:53 AM EDT Marco Ham MD LAB BLOOD ORDERABLES Gerda walton Result [facility] [address] [place] [address], from Last 3 Months or Most Recently Relevant to Health Maintenance Insurance [facility] MEDICARE Member Subscriber Plan / Payer (Ef fective 2016-Present) Name:TOM KUMAR Relation to Subscriber:Self Name:Tom Kumar Payer ID:[id number] Group ID:[id number] Type:Not on file Address: [address] [phone] Care Teams Passenger Barge Master Relationship Specialty Start Date End Date Physician, No Pcp PCP - General 03/10/24
== END 2024-11-23 16:31 | disposition home or self-care (01) ==
LOC: HO.HPSW 15:45
PROVIDERS: PCP Internal Medicine; Visit Provider Nurse Practitioner Family
DX: R05.9 Cough, unspecified (principal); R06.09 Other forms of dyspnea
CPT/HCPCS: 99214

== ENCOUNTER → 2024-11-23 15:45 | Outpatient (BNVA) | payer OTHER, SELFPAY | PROVIDERS: PCP Internal Medicine; Visit Provider Nurse Practitioner Family | DX: Z71.2 Person consulting for explanation of examination or test findings (principal); Z91.09 Other allergy status, other than to drugs and biological substances; R06.09 Other forms of dyspnea; R05.9 Cough, unspecified | CPT/HCPCS: 99212 ==

== ENCOUNTER 2024-11-26 06:48 | Outpatient (REF) | payer OTHER, SELFPAY ==
--- OUTSIDE RECORDS SUMMARY | 2024-11-26 06:50 | XMS_ITS | Clinical Summary ---
Author Organization [facility] Address [address] [place] [address] Care Team Providers Care Coremaking Machine Operator Name Role Phone Unavailable Primary Care Provider [...]
--- OUTSIDE RECORDS SUMMARY | 2024-11-26 06:50 | XMS_ITS | Clinical Summary ---
Author Organization [facility] Address [address] [place] [address] Care Team Providers Care Crime Scene Evidence Technician Name Role Phone DylanbrittJacob NP Primary Care Provider [phone] Source Comments PLEASE NOTE, if this patient [...] Plan of Treatment Not on file Insurance [place] Care Teams Crime Scene Evidence Technician Relationship Specialty Start Date End Date Jacob Bourgeois NP [address] [place] [address] PCP - General 01/15/18
--- OUTSIDE RECORDS SUMMARY | 2024-11-26 06:50 | XMS_ITS | Clinical Summary ---
Author Organization [facility] Address [address] [place] [address] Phone Care Team Providers Care Vehicle Check In Clerk Name Role Phone Physician, No Pcp Primary [...] - 09/25/2024 11:59 PM EDT Hospital Encounter [facility] Xray [address] [place] [address] Dyspnea, unspecified Discharge Disposition: Home or Self Care from Last 3 Months Medical History Medical History Date Comments Diabetes mellitus ([facility] V24, [facility] V28) Hypertension Social History Tobacco Use Types [...] Signed Date: 09/25/2024 09:15 ET Workstation ID: [id number] Transcribed By: Self Edit Transcribed Date: 09/25/2024 [...] Signed Date: 09/25/2024 09:15 ET Workstation ID: [id number] Transcribed By: Self Edit Transcribed Date: 09/25/2024 09:11 ET us Adriana Abebe PHARMACY HELPER IMG XR PROCEDURES Final Res ult * [...] 06/30/2024 8:42 AM [facility] Creatinine 0.88 0.70 - 1.30 [...] LAB CHEMISTRY METHOD 06/30/2024 8:42 AM EDT [facility] AST (SGOT) 59(H) 10 - 42 unit/L LAB CHEMISTRY METHOD 06/30/2024 8:42 AM EDT [facility] ALT (SGPT) 146(H) 10 - 60 unit/L LAB CHEMISTRY METHOD 06/30/2024 8:42 AM EDT [facility] Alkaline Phosphatase 87 42 - 121 unit/L LAB CHEMISTRY METHOD 06/30/2024 8:42 AM EDT [facility] Total Protein 7.0 6.0 - 8.0 g/dL LAB CHEMISTRY METHOD 06/30/2024 8:42 AM T [facility] Albumin 3.8 3.2 - 5.0 g/dL LAB CHEMISTRY METHOD 06/30/2024 8:42 AM [facility] Total Bilirubin 2.0(H) 0.0 - 1.4 mg/dL LAB CHEMISTRY METHOD 06/30/2024 8:42 AM EDT [facility] Comment:Results verified by repeat testing Blood Venous blood specimen / Unknown Venipuncture / Unknown 06/30/2024 7:29 AM EDT 06/30/2024 7:53 AM EDT Marco Ham MD LAB BLOOD ORDERABLES Gerda walton Result [facility] [address] [place] [address], from Last 3 Months or Most Recently Relevant to Health Maintenance Insurance [facility] MEDICARE Member Subscriber Plan / Payer (Ef fective 2016-Present) Name:TOM PITTS Relation to Subscriber:Self Name:Tom Pitts Payer ID:[id number] Group ID:[id number] Type:Not on file Address: [address] [phone] Care Teams Vehicle Check In Clerk Relationship Specialty Start Date End Date Physician, No Pcp PCP - General 03/10/24
[2024-11-26 07:09] LABS: MANUAL DIFF FLAG NO
[2024-11-26 07:53] LABS: Hematocrit 44.2 % (42.0-52.0); Hemoglobin 15.4 g/dl (14.0-18.0); Imm Gran Abs Auto 0.04 X10*3/uL (0.00-0.03); Imm Gran Pct Auto 0.5 % (0.0-0.4); Lymphocytes Absolute Auto 3.1 X10*3/uL (1.2-4.9); Mean Corpuscular HGB Conc 34.8 g/dl (31.0-36.0); Mean Corpuscular Hemoglobin 30.4 pg (27.0-33.0); Mean Corpuscular Volume 87.2 fL (80.0-98.0); NRBC Abs Auto 0.000 X10*3/uL (0.0-0.012); NRBC Pct Auto 0.0 /100WBC (0.0-0.2); Platelet Count 151 X10*3/uL (160-400); Red Blood Count 5.07 X10*6/uL (4.60-5.80); White Blood Count 8.2 X10*3/uL (4.8-10.8)
[2024-11-26 08:32] LABS: Alanine Aminotransferase 138 U/L (0-40); Albumin Level 3.8 g/dL (3.5-5.0); Alkaline Phosphatase 92 U/L (39-117); Anion Gap 13 (12-20); Aspartate Amino Transferase 84 U/L (5-37); Blood Urea Nitrogen 11 mg/dL (9-16); Calcium 8.5 mg/dL (8.4-10.2); Carbon Dioxide 26 mmol/L (22-29); Chloride 107 mmol/L (96-108); Cholesterol 196 mg/dL (<200); Estimated Glomerular Filt Rate > 60; HDL Cholesterol 38 mg/dL (>40); Potassium 3.7 mmol/L (3.3-5.1); Sodium 142 mmol/L (135-145); Total Protein 6.6 g/dL (6.5-8.0); Triglycerides 186 mg/dL (<150)
[2024-11-26 08:39] LABS: Ferritin 121 ng/mL (20-250)
[2024-11-26 09:30] LABS: Microalbum/Creatinine Ratio Ur 6.7 ug/mg cr (<30)
[2024-11-26 09:45] LABS: HBS Num1 0.00 mIU/mL (0-7.99); HBc Num1 0.20 S/CO (0.00-0.79); HBsAGNum1 0.38 S/CO (0.00-0.99); HIV Num 1 0.04 S/CO (0.00-0.99); Hepatitis A Antibody IgM 0.16 Index (0-0.79); Hepatitis B Surface Antigen Negative (Negative); ~HepC Num1 0.12 S/CO (0.00-0.79); ~Hepatitis A Antibody IgM Nonreactive (Nonreactive); ~Hepatitis B Surface Antibody NONREACTIVE (Nonreactive); ~Hepatitis C Antibody Nonreactive (Nonreactive)
[2024-11-26 09:47] LABS: Free T4 (Free Thyroxine) 0.86 ng/dL (0.71-1.85)
[2024-11-29 20:54] LABS: Anti Nuclear Antibody Pattern Nuclear, Speckled; Anti Nuclear Antibody Screen POSITIVE (NEGATIVE); Anti Nuclear Antibody Titer 1:40 titer
[2024-12-01 12:58] LABS: Transglutaminase Ab IgG <1.0 U/mL
[2024-12-08 14:14] LABS: FIB-ALT 101 U/L (9-46); FIB-Alpha-2-Macroglobulin 315 mg/dL (106-279); FIB-Apolipoprotein A1 154 mg/dL (94-176); FIB-GGT 65 U/L (3-85); FIB-Haptoglobin <8 mg/dL (43-212); FIB-Total Bilirubin 0.7 mg/dL (0.2-1.2); Liver Fibrosis Score 0.88; Liver Fibrosis Stage F4; Nec Inflam Act Grade A3; Nec Inflam Act Score 0.76
== END 2024-11-26 06:49 | disposition home or self-care (01) ==
LOC: HO.LAB 06:48
PROVIDERS: Absent Provider Internal Medicine; PCP Internal Medicine; Visit Provider Nurse Practitioner
DX: Z01.84 Encounter for antibody response examination (principal); R74.01 Elevation of levels of liver transaminase levels; K76.0 Fatty (change of) liver, not elsewhere classified; D12.6 Benign neoplasm of colon, unspecified; E78.5 Hyperlipidemia, unspecified; E11.9 Type 2 diabetes mellitus without complications; R80.9 Proteinuria, unspecified; E55.9 Vitamin D deficiency, unspecified; Z13.29 Encounter for screening for other suspected endocrine disorder; Z13.6 Encounter for screening for cardiovascular disorders; Z11.4 Encounter for screening for human immunodeficiency virus [HIV]; Z20.2 Contact with and (suspected) exposure to infections with a predominantly sexual mode of transmission
CPT/HCPCS: 36415; 80053; 80061; 81596; 82043; 82105; 82306; 82390; 82570; 82728; 84439; 84443; 85025; 86015; 86038; 86039; 86364; 86381; 86704; 86706; 86709; 86803; 87340; 87389

== ENCOUNTER 2024-12-10 15:06 | Outpatient (AMB) | payer OTHER, SELFPAY ==
--- OUTSIDE RECORDS SUMMARY | 2024-12-10 15:09 | XMS_ITS | Clinical Summary ---
Author Organization [facility] Address [address] [place] [address] Care Team Providers Care Rural Mail Contractor Name Role Phone DylanbrittJacob NP Primary Care Provider [phone] Source Comments PLEASE NOTE, if this patient [...] Plan of Treatment Not on file Insurance [place] Care Teams Rural Mail Contractor Relationship Specialty Start Date End Date Jacob Bourgeois NP [address] [place] [address] PCP - General 01/15/18
--- OUTSIDE RECORDS SUMMARY | 2024-12-10 15:09 | XMS_ITS | Clinical Summary ---
Author Organization [facility] Address [address] [place] [address] Care Team Providers Care Freight Weigher Name Role Phone Unavailable Primary Care Provider [...]
--- OUTSIDE RECORDS SUMMARY | 2024-12-10 15:10 | XMS_ITS | Clinical Summary ---
Author Organization [facility] Address [address] [place] [address] Phone Care Team Providers Care Can Closing Machine Operator Name Role Phone Physician, No [...] - 09/25/2024 11:59 PM EDT Hospital Encounter [facility] Xray [address] [place] [address] Dyspnea, unspecified Discharge Disposition: Home or Self Care from Last 3 Months Medical History Medical History Date Comments Diabetes mellitus ([facility]/HCC V24, [facility]/HCC V28) Hypertension Social History Tobacco Use Types [...] Health Maintenance Due Date Last Done Comments Colorectal Cancer Screening: Colonoscopy 1967 Hepatitis B Vaccines (1 of 3 - 19+ 3-dose series) 12/10/1986 Pneumococcal Vaccine: 50+ Years (1 of 1 - PCV) 12/10/2017 Zoster Vaccines (1 of 2) 12/10/2017 Cholesterol Screening (Lipid Panel) 02/10/2022 HIV Screening 02/10/2022 Hepatitis C Screening 02/10/2022 Medicare Annual Wellness Visit 02/10/2022 Social Influencers of Health Screening 02/10/2022 Depression Screening 03/10/2024 COVID-19 Vaccine ( season) 2024 02/15/2021, 07/04/2020, 06/12/2020 Influenza Vaccine (#1) 2024 4, 02/07/2023, 12/05/2020, Additional history exists DTaP,Tdap,and Td Vaccines (2 - Td or Tdap) 06/19/2025 06/20/2015 Hypertension/CHF/CAD Annual BMP Blood Test 06/30/2025 06/30/2024, 06/29/2024, 04/04/2024, Additional history exists RSV Immunization Adult Patients (1 - 1-dose 75+ series) 12/10/2042 HIB Vaccines Aged Out No longer eligi [...] Signed Date: 09/25/2024 09:15 ET Workstation ID: [id number] Transcribed By: Self Edit Transcribed Date: 09/25/2024 [...] Signed Date: 09/25/2024 09:15 ET Workstation ID: [id number] Transcribed By: Self Edit Transcribed Date: 09/25/2024 09:11 ET us Adriana Lomas INDUSTRIAL TRUCK OPERATOR IMG XR PROCEDURES Final Res ult * (ABNORMAL) Comprehensive metabolic panel (06/30/2024 7:29 AM EDT) Sodium 141 133 - 145 mmol/L LAB CHEMISTRY METHOD 06/30/2024 8:42 AM [facility] Potassium 3.6 3.5 - 5.5 mmol/L LAB CHEMISTRY METHOD 06/30/2024 8:42 AM [facility] Chloride 106 96 - 110 mmol/L LAB CHEMISTRY METHOD 06/30/2024 8:42 AM [facility] CO2 26 21 - 32 mmol/L LAB CHEMISTRY METHOD 06/30/2024 8:42 AM [facility] Anion Gap 9 3 - 11 LAB CHEMISTRY METHOD 06/30/2024 8:42 AM [facility] Glucose 136(H) 70 - 100 mg/dL LAB CHEMISTRY METHOD 06/30/2024 8:42 AM [facility] BUN 13 5 - 25 mg/dL LAB CHEMISTRY METHOD 06/30/2024 8:42 AM [facility] Creatinine 0.88 0.70 - 1.30 mg/dL LAB CHEMISTRY METHOD 06/30/2024 8:42 AM [facility] eGFR 101 >=60 mL/min/1. 73m2 LAB CHEMISTRY METHOD 06/30/2024 8:42 AM [facility] Comment:Calculation based on the Chronic Kidney Disease Epidemiology Collaboration (CKD-EPI) equation refit without adjustment for race. BUN/Creatinine Ratio 14.8 LAB CHEMISTRY METHOD 06/30/2024 8:42 AM [facility] Calcium 8.9 8.5 - 10.5 mg/dL LAB CHEMISTRY METHOD 06/30/2024 8:42 AM [facility] AST (SGOT) 59(H) 10 - 42 unit/L LAB CHEMISTRY METHOD 06/30/2024 8:42 AM [facility] ALT (SGPT) 146(H) 10 - 60 unit/L LAB CHEMISTRY METHOD 06/30/2024 8:42 AM T [facility] Alkaline Phosphatase 87 42 - 121 unit/L LAB CHEMISTRY METHOD 06/30/2024 8:42 AM [facility] Total Protein 7.0 6.0 - 8.0 g/dL LAB CHEMISTRY METHOD 06/30/2024 8:42 AM [facility] Albumin 3.8 3.2 - 5.0 g/dL LAB CHEMISTRY METHOD 06/30/2024 8:42 AM [facility] Total Bilirubin 2.0(H) 0.0 - 1.4 mg/dL LAB CHEMISTRY METHOD 06/30/2024 8:42 AM T [facility] Comment:Results verified by repeat testing Blood Venous blood specimen / Unknown Venipuncture / Unknown 06/30/2024 7:29 AM EDT 06/30/2024 7:53 AM EDT Marco Ham MD LAB BLOOD ORDERABLES Gerda walton Result [facility] [address] [place] [address], from Last 3 Months or Most Recently Relevant to Health Maintenance Insurance [facility] MEDICARE Member Subscriber Plan / Payer (Ef fective 2016-Present) Name:TOM KUMAR ID:[id number] Relation to Subscriber:Self Name:Tom Kumar Payer ID:[id number] Group ID:[id number] Type:Not on file Address: [facility] [address] [phone] Care Teams Can Closing Machine Operator Relationship Specialty Start Date End Date Physician, No Pcp PCP - General 03/10/24
--- NOTE | 2024-12-10 15:21 | A.OFFVIS_ITS ---
Vital Signs 12/10/24 15:45 Height 5 ft 9 in Weight 234 lb 4 oz BMI 34.6 BP 128/84 Blood Pressure Location Rt brachial Position Sitting Pulse 108 H Pulse Source Pulse Oximeter Pulse Oximetry (%) 96 Oxygen Delivery Method Room Air Intake Visit Reasons: hypoventilation Allergies lisinopril Allergy (Intermediate, Verified 11/23/24 15:51) Cough acetaminophen (Percocet) Allergy (Mild, Verified 11/23/24 15:51) rash oxycodone (From Percocet) Allergy (Mild, Verified 11/23/24 15:51) rash HPI HPI hypoventilation: Details: Tom is a pleasant 58 year old male, never smoker, with underlying HTN. He was initially referred by PCP after recent home sleep study for DOT screening revealed mild nocturnal hypoxemia <88% for 7 minutes, possibly related to underlying respiratory disorder vs technical issues, negative for AROLDO. He also reported a dry cough that has developed over the last year as well as dyspnea on moderate exertion, both continue to persist. Denies wheezing or chest tightness or prior dx of asthma. PFT revealed no obstructive nor restrictive ventilatory defects identified. No significant response to bronchodilators noted. Lung volumes are low normal and a low normal diffusing capacity. Chest CT revealed ground-glass opacities suggestive of mild pneumonitis and was treated with prednisone. He reports resolution of symptoms with the use of prednisone however he recently traveled and upon return started with new onset chest congestion, difficulty expectorating and chills. He denies fevers. He took a home COVID test which was negative. [facility] Medical History Hyperlipidemia LDL goal <70 Physical exam Adult general medical exam COVID-19 Systemic viral illness Upper respiratory tract infection Sore throat (viral) Essential hypertension Postlaminectomy syndrome Abnormal barium swallow Dyslipidemia Transaminitis Right knee pain Obese Lumbar degenerative disc disease Surgical History History of colonoscopy Fusion of lumbar spine History of fracture of left ankle History of lumbar fusion History of arthroscopy of left knee Hx of arthroscopy of right knee Family History Father Diabetes Mother Diabetes Hypertension Asthma Social History Housing: House Alcohol intake: former Patient Tobacco Use Status: Never used Tobacco e-Cigarette/Vaping Use: Never Used Second Hand Smoke Exposure: No service: No Current occupational status: employed Current occupational exposures/hazards: No Cognitive needs: No Hearing needs: No Vision needs: No Review of Systems Const Denies chills, Denies excessive sweating, Denies fever(s), Denies headache(s) and Denies night sweats Eyes Denies dry eyes, Denies irritation and Denies itchy eyes ENT Reports Normal hearing present, Denies headache(s), Denies nasal congestion, Denies nasal discharge, Denies post nasal drip and Denies sore throat Card Denies chest pain, Denies chest pain at rest, Denies chest pain with activity, Denies claudication, Denies leg edema, Denies orthopnea and Denies paroxysmal nocturnal dyspnea Resp Reports chest congestion, Reports cough, Denies excessive phlegm production, Denies pain on inspiration, Denies pain with cough, Denies stridor and Denies wheezing Musc Denies myalgias Neuro Reports Normal hearing present and Denies headache(s) Endo Denies excessive sweating Lemuel/Lymph Denies lymphadenopathy Aller/Immun Denies itchy eyes, Denies seasonal rhinorrhea and Denies wheezing Physical Exam Vital Signs: Last Vital Signs Pulse 108 H 12/10/24 15:45 BP 128/84 12/10/24 15:45 Pulse Ox 96 12/10/24 15:45 Oxygen Delivery Method Room Air 12/10/24 15:45 BMI result Body Mass Index 34.6 Const General: cooperative, healthy appearing, comfortable, no acute distress, well developed and alert Nutritional Appearance: obese Orientation/consciousness: patient oriented x3 Limitations: no limitations HEENT Head: Yes normal to inspection, Yes normocephalic and Yes atraumatic Ears: hearing grossly normal bilaterally and external ears normal Eyes General: appearance normal, both eyes and all related structures Eyelids: Yes eyelids normal Sclerae: sclerae normal EOM: EOMs intact bilaterally Neck Neck: Yes normal visual inspection and Yes no lymphadenopathy Lymphatic: no lymphadenopathy noted Chest Chest palpation & inspection: normal inspection of the chest Resp Effort & Inspection: normal respiratory effort, able to speak in complete sentences, no audible wheezes, no cough, no stridor, not tachypneic, no tripod positioning and no use of accessory muscles Auscultation: diminished lung sounds Cardio Jugular venous distension: no JVD Rate: regular rate Rhythm: regular rhythm Skin Other: warm, dry General skin exam: no rashes or lesions noted Neuro General: patient oriented x3 Cranial nerves: Yes Normal hearing present Cognition (Neuro): normal cognition Gait exam (Neuro): Normal gait present Extrem General: Yes normal to inspection, Yes capillary refill normal, Yes no clubbing, cyanosis or edema and Yes no pedal edema Psych Appearance: grossly normal and well kempt Speech and movement: Normal speech and movement present and Clear speech present Affect: normal affect Attitude: cooperative Thought process: Normal thought process present Thought content: Normal thought content present Insight: Good insight present (Psych) Judgement: Good judgement present (Psych) Assessment & Plan Assessment & Plan (1) Cough: Code(s): R05 - Cough Category: Medical (2) Dyspnea on exertion: Code(s): R06.09 - Other forms of dyspnea Category: Medical Plan Prior chest CT revealed mild ground-glass opacities in bilateral upper lobes, right middle lobe, and left lower lobe consistent with a mild pneumonitis, with resolution of symptoms on prednisone. He has upcoming chest CT to assess for resolution of ground-glass opacities. Will treat bronchitic symptoms with azithromycin. He is aware to call if symptoms do not improve. All questions were answered and patient is in agreement of plan. Will follow up to review results of chest CT or sooner if needed. Medications: New azithromycin For 250 mg dose pack: take 500 mg today (day 1), then 250 mg for 4 days (days 2-5) PO 6 tabs 0RF Coding Level of Care Code Est Pt Level 4 (50224) Diagnoses Cough R05 Dyspnea on exertion R06.09
[2024-12-10 15:45] VITALS: BP 128/84; PULSE 108; O2SAT 96; BMI 34.6
== END 2024-12-10 15:35 | disposition home or self-care (01) ==
LOC: HO.HPSW 15:07
PROVIDERS: PCP Internal Medicine; Visit Provider Nurse Practitioner Family
DX: R05.9 Cough, unspecified (principal); R06.09 Other forms of dyspnea
CPT/HCPCS: 99214

== ENCOUNTER → 2024-12-10 15:06 | Outpatient (BNVA) | payer OTHER, SELFPAY | PROVIDERS: PCP Internal Medicine; Visit Provider Nurse Practitioner Family | DX: R05.3 Chronic cough (principal); Z91.09 Other allergy status, other than to drugs and biological substances | CPT/HCPCS: 99212 ==

== ENCOUNTER 2025-01-11 17:32 | Outpatient (AMB) | payer OTHER, SELFPAY ==
[2025-01-11 17:35] VITALS: BP 130/76; PULSE 106; RESP 18; TEMP 36.3; O2SAT 95; BMI 34.9
--- NOTE | 2025-01-11 17:35 | MHC.PC.OV ---
Vital Signs 01/11/25 17:35 Height 5 ft 9 in Weight 236 lb 8 oz BMI 34.9 BP 130/76 Blood Pressure Location Lt brachial Position Sitting Respiration 18 Pulse 106 H Temp 97.3 F Temp Source Temporal Artery Scan Pulse Oximetry (%) 95 Oxygen Delivery Method Room Air Intake Visit Reasons: annual exam- due for A1C Inspector Barrel Required: No Accompanied by: Self / Same As Patient Allergies lisinopril Allergy (Intermediate, Verified 01/11/25 17:40) Cough acetaminophen (Percocet) Allergy (Mild, Verified 01/11/25 17:40) rash oxycodone (From Percocet) Allergy (Mild, Verified 01/11/25 17:40) rash Medication List - Last Reconciled 01/11/25 by Magali Taveras MD albuterol sulfate 90 mcg/actuation 2 puffs inhalation Q4-6H PRN alcohol swabs (Alcohol Prep Pads) 1 pad topical DAILY 90 days atorvastatin 10 mg PO BEDTIME 90 days azithromycin For 250 mg dose pack: take 500 mg today (day 1), then 250 mg for 4 days (days 2-5) PO bisacodyl (Dulcolax (bisacodyl)) 10 mg (2 x 5 mg) PO BEDTIME 2 days blood pressure monitor (Blood Pressure Kit) As directed blood sugar diagnostic (Letuch Ultra Test strips) Use 1 test strpi once a day blood-glucose meter (FarmainstantTouch UltraMini kit) As directed cholecalciferol (vitamin D3) 25 mcg PO DAILY 90 days cyclobenzaprine 10 mg PO TID PRN 90 days hydrochlorothiazide 25 mg PO DAILY 90 days hydroxyzine pamoate 25 mg PO BID PRN lancets (FarmainstantTouch Delica Plus Lancet) Use 1 lancet once a day lancets USe 1 lancet once a day levocetirizine 5 mg PO DAILY PRN 90 days losartan 25 mg PO DAILY 30 days metformin 500 mg PO DAILY 90 days peg 3350-electrolytes 236-22.74-6.74 -5.86 gram (Golytely) 240 mL PO Q10M 1 day prednisone 10 mg PO DIRECTED pregabalin 200 mg PO BID 10 days pregabalin 200 mg PO BID 30 days terbinafine HCl 250 mg PO DAILY 90 days Held on 12/09/24. Instructions: Doctor's Order Tobacco use date assessed: 01/11/25 Dental Screening Dental Screen Date: 04/27/24 Did you have a dental visit in the last 12 months?: Yes Did you have a dental problem in the last 6 months where you did not have access to dental care?: No Was dental information given to patient?: Patient has dentist HPI HPI Comments History of Present Illness Details The patient is a 59-year-old male presenting for an annual physical exam. His medical history includes diabetes, for which he takes metformin, and hypertension, for which he takes hydrochlorothiazide and losartan. He also takes vitamin D, Flexeril, hydroxyzine, and levocetirizine for allergies. Colonoscopy will be done this year. Complains of right knee pain and will be referred to ortho. He is obese and will be referred to weight management. Has diabetes mellitus type 2 with an A1c within goal. The patient has a history of arthroscopy on both the left and right knees and currently complains of pain in the right knee. Regarding his social history, the patient denies smoking and reports that he has not consumed alcohol in years. Review of laboratory results from November revealed an LDL cholesterol level of 121 and a slightly elevated thyroid level. [facility] Medical History (Updated 01/11/25 @ 19:35 by Magali Taveras MD) Physical exam Hyperlipidemia LDL goal <70 Adult general medical exam COVID-19 Systemic viral illness Upper respiratory tract infection Sore throat (viral) Essential hypertension Postlaminectomy syndrome Abnormal barium swallow Dyslipidemia Transaminitis Right knee pain Obese Lumbar degenerative disc disease Surgical History History of colonoscopy Fusion of lumbar spine History of fracture of left ankle History of lumbar fusion History of arthroscopy of left knee Hx of arthroscopy of right knee Family History Father Diabetes Mother Diabetes Hypertension Asthma Social History Housing: House Alcohol intake: former Patient Tobacco Use Status: Never used Tobacco e-Cigarette/Vaping Use: Never Used Second Hand Smoke Exposure: No service: No Current occupational status: employed Current occupational exposures/hazards: No Cognitive needs: No Hearing needs: No Vision needs: No Questionnaire PHQ-9 Over the last 2 weeks, how often have you been bothered by any of the following problems? 7. Trouble concentrating on things, such as reading the newspaper or watching television: not at all 8. Moving or speaking so slowly that other people could have noticed. Or the opposite - being so fidgety or restless that you have been moving around a lot more than usual: not at all 9. Thoughts that you would be better off or of hurting yourself in some way: not at all Source: Developed by Drs. Leandro Teague, John Gates and colleagues, with an educational rangel from [employer]. Thrive Questionnaire Date Thrive assessed: 08/21/24 I am a: Patient What is your living situation today?: I have a steady place to live Within the past 12 months, did the food you bought not last and you didn't have the money to get more?: I choose not to answer this question Within the past 12 months, did you worry whether your food would run out before you got money to buy more?: I choose not to answer this question Do you have trouble paying for medicines?: I choose not to answer this question Do you have trouble getting transportation to medical appointments?: No Do you have trouble paying your heating and electricity bill?: No Do you have trouble taking care of your child, family member or friend?: No Do you have trouble with day-to-day activities such as bathing, preparing meals, shopping, managing finances, etc.?: No Are you currently unemployed and looking for a job?: No Are you interested in more education?: No Please select the resources that you would like help with: None Currently or been in a relationship where the following occur: No concerns reported THRIVE Score: 0 BILL-7 AMB Questionnaire BILL-7 Date BILL - 7 assessed: 04/27/24 Source: Developed by Drs. Leandro Teague, Veronique Carter, John Cosme and colleagues, with an educational rangel from [employer]. Review of Systems Const All systems reviewed & are unremarkable except as noted in HPI and below Card Denies chest pain at rest, Denies chest pain with activity, Denies edema, Denies irregular heart rhythm, Denies claudication, Denies dyspnea, Denies dyspnea on exertion, Denies orthopnea, Denies paroxysmal nocturnal dyspnea and Denies slow heart rate Resp Denies cough, Denies dyspnea and Denies dyspnea on exertion Physical exam (Primary Care) Vital Signs: Last Vital Signs Temp 97.3 F 01/11/25 17:35 Pulse 106 H 01/11/25 17:35 Resp 18 01/11/25 17:35 BP 130/76 01/11/25 17:35 Pulse Ox 95 01/11/25 17:35 Oxygen Delivery Method Room Air 01/11/25 17:35 BMI result Body Mass Index 34.9 Tobacco/Smoking Status: Tobacco use Status Tobacco use date assessed 01/11/25 01/11/25 17:40 Patient Tobacco Use Status Never used Tobacco 01/11/25 17:40 e-Cigarette/Vaping Use Never Used 01/11/25 17:40 Thrive Assessment: Date of Thrive Assessment Date Thrive assessed 08/21/24 01/11/25 17:40 Currently or been in a relationship where the following occur: No concerns reported [facility] Head: Yes normal to inspection, Yes normocephalic and Yes atraumatic Ears: external ears normal Eyes General: appearance normal, both eyes and all related structures Eyelids: Yes eyelids normal Conjunctivae: conjunctivae normal Neck Neck: Yes normal visual inspection and Yes supple Resp Effort & Inspection: normal respiratory effort Auscultation: clear to auscultation bilaterally Cardio Jugular venous distension: no JVD Rate: regular rate Rhythm: regular rhythm Heart sounds: S1 normal heart sound present and S2 normal heart sound present GI Inspection: Yes normal to inspection Palpation (GI): Soft to palpation and nontender Auscultation: normal bowel sounds Skin General skin exam: no rashes or lesions noted Neuro General: no focal motor deficits Extrem General: Yes full ROM Psych Appearance: grossly normal Office Procedures Flu Questionnaire Does the patient have a severe egg allergy?: No Does the patient have severe life threatening allergies?: No Does the patient have a fever or illness today?: No Has the patient ever had Guillain-Laclede Syndrome?: No Has the patient ever had any past reaction to a flu shot?: No Results AMB Hemoglobin A1c AMB Hemoglobin A1c 6.6 % Last Edit by KELLIE Judge on 01/11/25 17:45 Immunizations Fluarix [id number] (PF) 45 mcg (15 mcg x 3)/0.5 mL IM syringe Performing Provider: Magali Taveras MD Performing Location: [facility] Administered by: KELLIE Judge on 01/11/25 17:44 Dose Route Admin Location Dispensed Lot Number Expiration Date NDC Financial Recording Clerk 0.5 mL IM Right Deltoid 0.5 mL [id number] 09/06/25 [id number] [employer] VIS Given Date VIS Provided VIS Publication Date 01/11/25 Single Vaccine 24 Eligibility Eligibility Date Funding Source Not [facility] Eligible 01/11/25 Private Results Reviewed Results Reviewed: Laboratory Last Values Hgb A1c (Clinic) 6.6 % (4.0-6.0) H 01/11/25 17:35 Coding Level of Care Code Est Pt Level 3 (61211) Est Pt Prev Care 40-64y(05968) Diagnoses Physical exam Z00.00 Type 2 diabetes mellitus without complication, without long-term current use of insulin E11.9 Diabetes mellitus type: type 2 Diabetes mellitus photofinishing laboratory worker insulin use: without [facility] use Diabetes mellitus complication status: without complication Class 2 obesity due to excess calories without serious comorbidity with body mass index (BMI) of 35.0 to 35.9 in adult E66.09; Z68.35 Obesity type: due to excess calories Obesity classification: adult class 2 (BMI 35 - 39.9) Serious obesity comorbidity presence: without serious comorbidity Body mass index: BMI 35.0-35.9 Right knee pain M25.561 Time Spent (min) 31 Assessment & Plan Assessment & Plan (1) Physical exam: Code(s): Z00.00 - Encounter for general adult medical examination without abnormal findings Category: Medical (2) Diabetes mellitus: Code(s): E11.9 - Type 2 diabetes mellitus without complications Category: Medical Qualifiers: Diabetes mellitus type: type 2 Diabetes mellitus photofinishing laboratory worker insulin use: without photofinishing laboratory worker use Diabetes mellitus complication status: without complication Qualified Code(s): E11.9 - Type 2 diabetes mellitus without complications (3) Obese: Code(s): E66.9 - Obesity, unspecified Category: Medical Qualifiers: Obesity type: due to excess calories Obesity classification: adult class 2 (BMI 35 - 39.9) Serious obesity comorbidity presence: without serious comorbidity Body mass index: BMI 35.0-35.9 Qualified Code(s): E66.09 - Other obesity due to excess calories; Z68.35 - Body mass index [BMI] 35.0-35.9, adult (4) Right knee pain: Code(s): M25.561 - Pain in right knee Category: Medical Plan Plan 1. Physical exam The patient's LDL cholesterol from November was noted to be 121, which is above the goal of 70 for individuals with diabetes. 2. Right knee pain Refer to ortho 3. Obese REfer to weight management. Orders: Orders AMB Hemoglobin A1c Today Z13.9 - Encounter for screening, unspecified Influenza [id number] Immunization Today Z23 - Encounter for immunization Thyroid Stimulating Hormone Today R79.89 - Other specified abnormal findings of blood chemistry Referrals Orthopedics Referral M25.561 - Pain in right knee Medical Weight Management Referral E66.09 - Other obesity due to excess calories, Z68.35 - Body mass index [BMI] 35.0-35.9, adult Medications: New tirzepatide (Mounjaro) for 4 weeks 2.5 mg (0.5 mL) subcut QWEEK 2 mL 0RF 4 weeks
--- OUTSIDE RECORDS SUMMARY | 2025-01-11 18:45 | XMS_ITS | Clinical Summary ---
Author Organization [facility] Address [address] [place] [address] Phone Care Team Providers Care Chief Environmental Commitment Officer Name Role Phone Physician, No Pcp Primary [...] Active Active Problems No known active problems Medical History Medical History Date Comments Diabetes mellitus (CMS/HCC V24, CMS/HCC V28) Hypertension Social History Tobacco [...] (2 - Td or Tdap) 06/19/2025 06/20/2015 RSV Immunization Adult Patients (1 - 1-dose [...] on patient's age to complete this topic Insurance MEDICARE Member Subscriber Plan / Payer (Ef fective 2016-Present) Name:TOM KUMAR Relation to Subscriber:Self Name:Tom Kumar Payer ID:[id number] Group ID:[id number] Type:Not on file Address: [facility] [address] [phone] Care Teams Chief Environmental Commitment Officer Relationship Specialty Start Date End Date Physician, No Pcp PCP - General 03/10/24
--- OUTSIDE RECORDS SUMMARY | 2025-01-11 18:45 | XMS_ITS | Clinical Summary ---
Author Organization [facility] Address [address] [place] [address] Care Team Providers Care Hydrogenation Still Operator Name Role Phone Unavailable Primary Care [...]
== END 2025-01-11 17:54 | disposition home or self-care (01) ==
LOC: HO.HMCH 17:33
PROVIDERS: PCP Internal Medicine; Visit Provider Internal Medicine
DX: Z00.00 Encounter for general adult medical examination without abnormal findings (principal); E11.9 Type 2 diabetes mellitus without complications; E66.09 Other obesity due to excess calories; Z68.35 Body mass index [BMI] 35.0-35.9, adult; M25.561 Pain in right knee; Z23 Encounter for immunization

== ENCOUNTER → 2025-01-11 17:32 | Outpatient (BNVA) | payer OTHER, SELFPAY | PROVIDERS: PCP Internal Medicine; Visit Provider Internal Medicine | DX: Z00.00 Encounter for general adult medical examination without abnormal findings (principal); E11.9 Type 2 diabetes mellitus without complications; I10 Essential (primary) hypertension; M25.561 Pain in right knee; E66.09 Other obesity due to excess calories; Z23 Encounter for immunization; Z68.35 Body mass index [BMI] 35.0-35.9, adult; Z79.84 Long term (current) use of oral hypoglycemic drugs | CPT/HCPCS: 83036; 90471; 90656; 99212; 99396 ==

== ENCOUNTER 2025-01-15 07:46 | Outpatient (REF) | payer OTHER, SELFPAY ==
--- NOTE | ~2025-01-15 | CT_ITS ---
CLINICAL HISTORY: R91.8 - Other nonspecific abnormal finding of lung field CT chest without contrast Comparison: 11/06/2024 Findings: The heart size is normal. The visualized thyroid and mediastinum are unremarkable. Findings of possible chronic interstitial lung disease noted most pronounced in the right middle lobe, not significantly changed. No new areas of airspace or interstitial consolidation. No new solid or semi solid lesions. The upper abdomen is unremarkable. The bones are intact. IMPRESSION: 1. Findings of possible chronic interstitial lung disease, unchanged from previous exam. Correlate with clinical, laboratory, and pulmonary function tests results This document has been electronically signed by: Bari Reynolds MD on 01/17/2025 08:51:50
--- OUTSIDE RECORDS SUMMARY | 2025-01-15 07:48 | XMS_ITS | Clinical Summary ---
Author Organization [facility] Address [address] [place] [address] Care Team Providers Care Space Control Supervisor Name Role Phone DylanbrittJacob NP Primary Care Provider [phone] Source Comments PLEASE NOTE, if this patient [...] Plan of Treatment Not on file [place] Care Teams Space Control Supervisor Relationship Specialty Start Date End Date Jacob Bourgeois NP [address] [place] [address] PCP - General 01/15/18
--- OUTSIDE RECORDS SUMMARY | 2025-01-15 07:48 | XMS_ITS | Clinical Summary ---
Author Organization [facility] Address [address] [place] [address] Care Team Providers Care Lath Tier Name Role Phone Unavailable Primary Care Provider [...]
--- OUTSIDE RECORDS SUMMARY | 2025-01-15 07:48 | XMS_ITS | Clinical Summary ---
Author Organization [facility] Address [address] [place] [address] Phone Care Team Providers Care Drum Cleaner Name Role Phone Physician, No Pcp Primary [...] ID:[id number] Group ID:[id number] Type:Not on file Address: [facility] [address] [id number] Care Teams Drum Cleaner Relationship Specialty Start Date End Date Physician, No Pcp PCP - General 03/10/24
[2025-01-15 09:44] LABS: Alanine Aminotransferase 179 U/L (0-40); Albumin Level 3.9 g/dL (3.5-5.0); Alkaline Phosphatase 87 U/L (39-117); Anion Gap 13 (12-20); Aspartate Amino Transferase 104 U/L (5-37); Blood Urea Nitrogen 12 mg/dL (9-16); Calcium 8.7 mg/dL (8.4-10.2); Carbon Dioxide 25 mmol/L (22-29); Chloride 108 mmol/L (96-108); Cholesterol 196 mg/dL (<200); Estimated Glomerular Filt Rate > 60; HDL Cholesterol 40 mg/dL (>40); Potassium 4.1 mmol/L (3.3-5.1); Sodium 142 mmol/L (135-145); Total Protein 6.7 g/dL (6.5-8.0); Triglycerides 127 mg/dL (<150)
[2025-01-15 09:59] LABS: Thyroid Stimulating Hormone 3.08 uIU/mL (0.32-4.0)
[2025-01-15 12:07] LABS: Microalbum/Creatinine Ratio Ur 6.0 ug/mg cr (<30)
== END 2025-01-15 07:47 | disposition home or self-care (01) ==
LOC: HO.CT 07:46
PROVIDERS: Absent Provider Internal Medicine; PCP Internal Medicine; Visit Provider Nurse Practitioner Family
DX: R91.8 Other nonspecific abnormal finding of lung field (principal); E78.5 Hyperlipidemia, unspecified; E55.9 Vitamin D deficiency, unspecified; R80.9 Proteinuria, unspecified; E11.9 Type 2 diabetes mellitus without complications; R79.89 Other specified abnormal findings of blood chemistry
CPT/HCPCS: 36415; 71250; 80053; 80061; 82043; 82306; 82570; 84443

== ENCOUNTER → 2025-01-15 07:50 | Outpatient (BNV) | payer OTHER, SELFPAY | PROVIDERS: Absent Provider Internal Medicine; PCP Internal Medicine; Visit Provider Specialist | DX: R91.8 Other nonspecific abnormal finding of lung field (principal) | CPT/HCPCS: 71250 ==

== ENCOUNTER 2025-02-22 07:55 | Outpatient (REF) | payer OTHER, SELFPAY ==
--- NOTE | ~2025-02-22 | US_ITS ---
CLINICAL HISTORY: R74.01 - Elevation of levels of liver transaminase levels US abdomen complete Comparison: None provided Findings: Suboptimal exam due to limited acoustic window. The visualized pancreas head is normal. The visualized aorta and inferior vena cava are normal caliber. The liver near gallbladder fossa is not well seen due to shadowing in technique, right lobe length is 16.2 cm. Diffusely echogenic liver parenchyma with mildly coarsened echotexture, no focal lesion is seen in the visualized liver. No intrahepatic bile duct dilatation. The common duct is 3 mm in diameter. Gallbladder is not well visualized, grossly normal, negative sonographic Mello's sign. The main portal vein is patent with antegrade flow. The right kidney is normal, 10.9 cm in length. The left kidney is normal, 12.1 cm in length. The spleen is normal, 12.4 cm in length. No free fluid in the abdomen. Impression: Suboptimal evaluation of liver, diffuse celiac echogenic liver parenchyma with mildly coarsened echotexture, although non-specific and can be seen in parenchymal liver disease. This document has been electronically signed by: Nora Onofre MD on 02/22/2025 12:58:27
--- OUTSIDE RECORDS SUMMARY | 2025-02-22 08:02 | XMS_ITS | Clinical Summary ---
Author Organization [facility] Address [address] [place] [address] Phone Care Team Providers Care Teacher Asst Name Role Phone Physician, No Pcp Primary [...] Orientation Straight 06/30/2024 7: 58 AM EDT Last Filed Vital Signs Vital Sign Reading [...] ID:[id number] Group ID:[id number] Type:Not on file Address: [facility] [address] [address] Care Teams Teacher Asst Relationship Specialty Start Date End Date Physician, No Pcp PCP - General 03/10/24
--- OUTSIDE RECORDS SUMMARY | 2025-02-22 08:02 | XMS_ITS | Clinical Summary ---
Author Organization [facility] Prior to 08/07/[address] [place] [address] Care Team Providers Care Asphalt Paver Operator Name Role Phone Unavailable Primary Care [...]
== END 2025-02-22 07:56 ==
LOC: HO.US 07:55
PROVIDERS: PCP Internal Medicine; Visit Provider Nurse Practitioner
DX: R74.01 Elevation of levels of liver transaminase levels (principal); K76.0 Fatty (change of) liver, not elsewhere classified
CPT/HCPCS: 76700

== ENCOUNTER → 2025-02-22 07:57 | Outpatient (BNV) | payer OTHER, SELFPAY | PROVIDERS: PCP Internal Medicine; Visit Provider Radiology Diagnostic Radiology | DX: R74.01 Elevation of levels of liver transaminase levels (principal) | CPT/HCPCS: 76700 ==